=== PATIENT | male | born 1955 | race Caucasian/White ===

== ENCOUNTER 2016-06-10 14:44 | Inpatient (IN) ==
[2016-06-10] MEDS ORDERED: Nitroglycerin 0.4 MG TAB.SUBL SL ONE (15:09)
[2016-06-10] MEDS ORDERED: Aspirin 81 MG TAB.CHEW PO ONE (15:09)
--- NOTE | 2016-06-10 15:13 | Emergency Department Note ---
Disposition Clinical Impression: Edema of upper extremity Chest pain Qualifiers: Chest pain type: unspecified Qualified Code(s): R07.9 - Chest pain, unspecified Lower extremity edema Qualifiers: Laterality: bilateral Qualified Code(s): R60.0 - Localized edema Anemia Qualifiers: Anemia type: unspecified type Qualified Code(s): D64.9 - Anemia, unspecified Disposition: Admitted As Inpatient Condition: Good Referrals: Omid Rainey MD [Primary Care Provider] - Forms: ED Satisfaction Letter Time of Disposition: 16:38 Chest Pain HPI - General Chief Complaint: ED Chest Pain Stated Complaint: chest pain Time Seen by Provider: 06/10/16 15:00 Source: patient Limitations: no limitations Vital Signs Reviewed: Yes Nursing Notes Reviewed: Yes - History of Present Illness HPI Narrative: Patient is a 61-year-old male with past medical history 3 previous MIs (most recent in 2010), stenting 5, CHF, hypertension, diabetes, high cholesterol, previous smoking history. Currently follows with Arun pradhan with cardiology. He presents today due to left-sided chest pain that has been occurring for the past 3 days. He describes it as left-sided, dull constant ache. He states that the pain exacerbated this morning around 11:00. The pain radiated to the left side of the chest and he had associated left hand numbness and tingling. He took 3 "squirts" of nitroglycerin and said that this resolved with pain to about a 0. However, just prior to arrival, the pain began to return. He currently rates his pain a 4 out of 10. He is at the pain is exacerbated with exercise. However, is not associated with deep breaths, movement. He also admits to increased swelling in hands and lower extremities bilaterally for the last 2-3 days. He denies any other symptoms of nausea, vomiting, diarrhea, abdominal pain, fevers. Severity scale (1-10): 7 - Related Data Home Medications Medication Instructions Recorded Confirmed Aspirin Enteric Coated [Aspirin EC] 81 mg PO DAILY 05/03/15 06/10/16 Carvedilol [Coreg] 50 mg PO BID 05/03/15 06/10/16 Clopidogrel [Plavix] 75 mg PO DAILY 05/03/15 06/10/16 Diltiazem CD (24hr) [Cardizem CD] 120 mg PO DAILY 05/03/15 06/10/16 Ezetimibe [Zetia] 10 mg PO DAILY 05/03/15 06/10/16 Isosorbide MONOnitrate (24 HR) 120 mg PO DAILY 05/03/15 06/10/16 [Imdur] Lisinopril [Zestril] 5 mg PO BID 05/03/15 06/10/16 Metformin [Glucophage] 500 mg PO 0800 05/03/15 06/10/16 Nitroglycerin [Nitrostat] 0.4 mg SL Q5M PRN 05/03/15 08/29/15 Pregabalin [Lyrica] 150 mg PO BID 05/03/15 06/10/16 Ranolazine [Ranexa] 1,000 mg PO BID 05/03/15 06/10/16 Atorvastatin Calcium [Lipitor] 80 mg PO HS 06/10/16 06/10/16 Furosemide [Lasix] 40 mg PO BID 06/10/16 06/10/16 Previous Rx's Medication Instructions Recorded Sertraline [Zoloft] 100 mg PO DAILY tablet 08/30/15 Allergies Allergy/AdvReac Type Severity Reaction Status Date / Time Penicillins Allergy Hives Verified 08/29/15 18:44 hydrocodone AdvReac Itching Verified 08/29/15 18:44 Oxycodone AdvReac Itching Verified 08/29/15 18:44 All systems ED: reviewed and negative except as stated. Chest Pain PMH - Past Medical History Medical history: Reports: arthritis, coronary artery disease, diabetes, hyperlipidemia, hypertension, myocardial infarction, other Surgical history: Reports: angioplasty/stent ([facility] s/p PCI 2003, 2005, 2007. [facility] 2014 no intervention. ), prostatectomy Psychiatric history: Reports: no psych history - Social History Smoking Status: Former smoker Alcohol use: Reports: none Drug use: Reports: none Physical Exam - General Limitations: no limitations General appearance: alert, in no apparent distress - Head Head exam: atraumatic, normocephalic, normal inspection - Eye Eye exam: Present: normal appearance, PERRL, EOMI - ENT ENT exam: normal exam, normal oropharynx, mucous membranes moist - Neck Neck exam: Present: normal inspection, full ROM, trachea midline - Chest Chest inspection: Present: normal inspection, symmetric chest wall rise. Absent : tenderness, rash - Respiratory Respiratory exam: Present: normal lung sounds bilaterally. Absent: respiratory distress, wheezes, stridor, accessory muscle use, prolonged expiratory phase - Cardiovascular Cardiovascular exam: Present: regular rate, normal rhythm, normal heart sounds - Abdominal Exam Abdominal exam: Present: soft, Non-Tender. Absent: tenderness, distention, guarding, rebound, rigidity - Extremities Exam Extremities exam: Present: full ROM, pedal edema (Bilateral lower extremity nonpitting edema from calf down. Posterior tibial pulses are 2 out of 4 bilaterally.), other (Mild edema bilateral hands from the wrist down; no other erythema or signs of cellulitis.). Absent: tenderness - Back Exam Back exam: Present: normal inspection, full ROM. Absent: tenderness - Neurological Exam Neurological exam: Present: alert, oriented X3, CN II-XII intact. Absent: motor sensory deficit - Psychiatric Psychiatric exam: Present: normal affect, normal mood - Skin Skin exam: Present: warm, dry, intact, normal color Course Course Narrative: Vitals within normal limits on exam. Physical exam showed edema of the bilateral hands, bilateral lower extremities that was nonpitting. Radial and posterior tibial pulses +2 over 4. Otherwise, the rest of the physical exam was benign. Patient took nitroglycerin earlier today and it helped relieve his pain completely. However, it has returned he rated a 4 out of 10. Blood pressure is 125 over 70s. We will try additional doses of nitroglycerin. Also give 324 mg aspirin. We will perform cardiac workup including EKG, chest x-ray , troponin, basic blood work. Patient has multiple risk factors and will likely need to stay for a chest pain rule out. 06/10/16 troponin negative, patient slightly anemic, BMP concerning. chest x- ray negative for any acute cardiopulmonary process. ekg showed normal sinus rhythm with no acute st changes. Heart score 4. results were discussed with the patient, and due to chest pain going away with nitro and significant risk factors, I strongly encouraged the patient to stay for cardiac rule out. He was agreeable with coming in for observation. 16:[address] Poole for admission. Vital Signs Temperature 98.2 F 06/10/16 14:47 Pulse Rate 75 06/10/16 14:47 Respiratory Rate 20 06/10/16 14:47 Blood Pressure 119/76 06/10/16 14:47 O2 Sat by Pulse Oximetry 95 06/10/16 14:47 Temperature 98.2 F 06/10/16 14:47 Pulse Rate 68 06/10/16 16:10 Respiratory Rate 20 06/10/16 16:10 Blood Pressure 132/77 06/10/16 16:10 O2 Sat by Pulse Oximetry 95 06/10/16 16:10 Oxygen Delivery Oxygen Delivery Room Air Chest Pain - MDM Narrative Medical decision making narrative: Vitals within normal limits on exam. Physical exam showed edema of the bilateral hands, bilateral lower extremities that was nonpitting. Radial and posterior tibial pulses +2 over 4. Otherwise, the rest of the physical exam was benign. Patient took nitroglycerin earlier today and it helped relieve his pain completely. However, it has returned he rated a 4 out of 10. Blood pressure is 125 over 70s. We will try additional doses of nitroglycerin. Also give 324 mg aspirin. We will perform cardiac workup including EKG, chest x-ray , troponin, basic blood work. Patient has multiple risk factors and will likely need to stay for a chest pain rule out. 06/10/16 troponin negative, patient slightly anemic, BMP concerning. chest x- ray negative for any acute cardiopulmonary process. ekg showed normal sinus rhythm with no acute st changes. Heart score 4. results were discussed with the patient, and due to chest pain going away with nitro and significant risk factors, I strongly encouraged the patient to stay for cardiac rule out. He was agreeable with coming in for observation. 16:[address] Poole for admission. - Medical Records Medical records reviewed: Yes I reviewed the patient's medical records. - Lab Data Lab results reviewed: Yes I reviewed the patient's lab results. Result diagrams: 06/10/16 15:10 06/10/16 15:10 Lab Results 06/10/16 06/10/16 06/10/16 Range/Units 15:10 15:10 15:10 WBC 6.7 (4.3-11.1) K/mcL RBC 3.66 L (4.19-5.50) M/mcL Hgb 11.9 L (12.9-16.9) g/dL Hct 34.7 L (37.5-50.1) % MCV 94.8 (83.0-100.0) fL MCH 32.5 (28.0-33.3) pg MCHC 34.3 (31.6-35.5) g/dL RDW 12.9 (11.5-14.5) % Plt Count 130 L (140-400) K/mcL MPV 10.4 (9.4-12.4) fL Immature Gran % 1.2 (0-4) % Seg Neutrophils % 65.8 % Lymphocytes % 18.3 % Monocytes % 13.7 % Eosinophils % 0.5 % Basophils % 0.5 % Neutrophils # 4.4 (1.6-8.9) K/mcL Lymphocytes # 1.2 (0.6-4.6) K/mcL Monocytes # 0.9 (0.0-1.3) K/mcL Eosinophils # 0.0 (0.0-0.6) K/mcL Basophils # 0.0 (0.0-0.2) K/mcL PT 12.7 H (9.4-12.1) Seconds INR 1.2 APTT 29.4 (26.0-36.0) Seconds Sodium 133 L (136-145) mEq/L Potassium 3.7 (3.5-4.5) mEq/L Chloride 100 (98-109) mEq/L Carbon Dioxide 22 (19-29) mEq/L BUN 11 (8-26) mg/dL Creatinine 1.05 (0.72-1.25) mg/dL Est GFR ( Amer) > 60 (> 60) Est GFR (Non-Af Amer) > 60 (> 60) BUN/Creatinine Ratio 10 (6-26) Glucose 115 H (70-99) mg/dL Calculated Osmolality 276 L (280-300) Calcium 8.7 (8.6-10.8) mg/dL Troponin I (0-0.03) ng/mL 06/10/16 Range/Units 15:10 WBC (4.3-11.1) K/mcL RBC (4.19-5.50) M/mcL Hgb (12.9-16.9) g/dL Hct (37.5-50.1) % MCV (83.0-100.0) fL MCH (28.0-33.3) pg MCHC (31.6-35.5) g/dL RDW (11.5-14.5) % Plt Count (140-400) K/mcL MPV (9.4-12.4) fL Immature Gran % (0-4) % Seg Neutrophils % % Lymphocytes % % Monocytes % % Eosinophils % % Basophils % % Neutrophils # (1.6-8.9) K/mcL Lymphocytes # (0.6-4.6) K/mcL Monocytes # (0.0-1.3) K/mcL Eosinophils # (0.0-0.6) K/mcL Basophils # (0.0-0.2) K/mcL PT (9.4-12.1) Seconds INR APTT (26.0-36.0) Seconds Sodium (136-145) mEq/L Potassium (3.5-4.5) mEq/L Chloride (98-109) mEq/L Carbon Dioxide (19-29) mEq/L BUN (8-26) mg/dL Creatinine (0.72-1.25) mg/dL Est GFR ( Amer) (> 60) Est GFR (Non-Af Amer) (> 60) BUN/Creatinine Ratio (6-26) Glucose (70-99) mg/dL Calculated Osmolality (280-300) Calcium (8.6-10.8) mg/dL Troponin I 0.00 (0-0.03) ng/mL - Radiology Data Radiology results reviewed: Yes I reviewed the patient's radiology results. Chest X-Ray 06/10/16 15:09 IMPRESSION: No acute cardiopulmonary disease D/ / Honorio Fernandez MD / Honorio Fernandez MD Interpreting Provider: Honorio Fernandez MD - EKG Data EKG attestation: Yes I reviewed and interpreted this EKG. EKG results narrative: 06/10/2016 14:53. Normal sinus rhythm. Normal axis. Rate 72. QTC 386. T- wave inversion in aVR, V1 that is unchanged from previous EKG. Otherwise, no acute ST elevation or depression. Comparison to previous EKG on 08/30/2015 Heart Score - Score History: Moderately Suspicious EKG: Normal Age: 45-65 Risk Factors: Equal/Greater than 3 risk factor or history of atherosclerotic disease Troponin: Less than normal limit HEART Score Total: 4 S.B.A.R. - S.B.A.R. Situation: Demographics, MOA Background: Presenting Complaint, Relevant PMH, Meds, & Allergies Assessment: Vital Signs, Course and respsone to treatment, Exam Concerns, Patient/Family Expectation, Pertinant Lab Results, Outstanding Labs Recommendation: Barrier(s) to disposition, Recommendation based on pending studies, treatments, or consults Vicky Report Given to: Dr. Virgilio Perry Repor Time: 16:38 Attestation Statement - Attestation Attestation: I examined this patient and my medical decision-making was reviewed with the CONTENT STRATEGIST/PA/Advanced Practice Nurse/Resident Physician. I agree with the documented findings, disposition and treatment plan as described except to the extent set forth below. The face time provided in conjunction with Patient presents complaining of chest "discomfort." He also feels as if he is diffusely swollen. He appears in no acute distress on exam. EKG reviewed by me. Plan of care and management discussed by me with the resident physician
[2016-06-10 15:20] LABS: Basophils % 0.5 %; Eosinophils % 0.5 %; Hematocrit 34.7 % (37.5-50.1); Hemoglobin 11.9 g/dL (12.9-16.9); Immature Granulocytes % 1.2 % (0-4); Lymphocytes # 1.2 K/mcL (0.6-4.6); Lymphocytes % 18.3 %; Mean Corpuscular HGB Conc 34.3 g/dL (31.6-35.5); Mean Corpuscular Hemoglobin 32.5 pg (28.0-33.3); Mean Corpuscular Volume 94.8 fL (83.0-100.0); Mean Platelet Volume 10.4 fL (9.4-12.4); Monocytes # 0.9 K/mcL (0.0-1.3); Monocytes % 13.7 %; Neutrophils # 4.4 K/mcL (1.6-8.9); Platelet Count 130 K/mcL (140-400); Red Blood Count 3.66 M/mcL (4.19-5.50); Red Cell Distribution Width 12.9 % (11.5-14.5); Segmented Neutrophils % 65.8 %
[2016-06-10 15:25] LABS: INR 1.2; Prothrombin Time 12.7 Seconds (9.4-12.1)
[2016-06-10 15:28] LABS: Activated Partial Thrombo Time 29.4 Seconds (26.0-36.0)
[2016-06-10 15:38] LABS: BUN/Creatinine Ratio 10 (6-26); Blood Urea Nitrogen 11 mg/dL (8-26); Calcium 8.7 mg/dL (8.6-10.8); Carbon Dioxide 22 mEq/L (19-29); Chloride 100 mEq/L (98-109); Glucose 115 mg/dL (70-99); Osmolality,Calculated 276 (280-300); Potassium 3.7 mEq/L (3.5-4.5); Sodium 133 mEq/L (136-145); eGFR For African Americans > 60 (> 60); eGFR For Non-African Americans > 60 (> 60)
[2016-06-10] MEDS ORDERED: Ketorolac 30 MG/ML VIAL IVP ONE (16:43)
[2016-06-10] MEDS ORDERED: Ibuprofen 400 MG TABLET PO PRN (18:19)
[2016-06-10] MEDS ORDERED: traMADol 50 MG TABLET PO PRN (18:19)
[2016-06-10] MEDS ORDERED: Furosemide 60 MG in 0.9 % Sodium Chloride 50 ML IVPB ONE (21:04)
[2016-06-10] MEDS ORDERED: Naloxone 0.4 MG/ML INJ IVP PRN (21:06)
[2016-06-10] MEDS ORDERED: Ondansetron 4 MG/2 ML VIAL IVP PRN (21:06)
[2016-06-10] MEDS ORDERED: Dextrose Gel 15 GM PO PRN ×2 (21:10)
[2016-06-10] MEDS ORDERED: D5% in Water 1,000 ML IV PRN (21:10)
[2016-06-10] MEDS ORDERED: *HR* Dextrose 50 % in Water (Syg) 50 ML SYRINGE IVP PRN (21:10)
[2016-06-10] MEDS ORDERED: Furosemide 40 MG/4 ML VIAL IVP ONE (21:21)
[2016-06-10] MEDS: Nitroglycerin 0.4 MG TAB.SUBL SL PRN (21:59)
[2016-06-10] MEDS ORDERED: Temazepam 15 MG CAPSULE PO ONE (22:21)
[2016-06-10] MEDS: traMADol 50 MG TABLET PO PRN (22:24)
--- NOTE | 2016-06-10 22:43 | Internal Med History&Physical ---
Date of Encounter: 06/10/16 Time of Encounter: 20:20 Internal Medicine - H&P: HPI Chief complaint: chest pain, fluid retention Admitted From: Emergency Dept Plans for Post Hospital Care: Home History of present illness: Mr. uRiz is a 61 year old male with medical history significant for 3 previous MIs (most recent in 2010), multiple PCI with five oronary stents, CHF, hypertension, diabetes, high cholesterol, previous smoking history, under care of [facility] of cardiology, he presents with intermittent left -sided chest pain, which has not really changed in pattern from prior, He describes it as left- sided, dull constant ache, with a minor exacerbation this morning, radiating across left chest and down the side. Chest pain was relieved after 3 doses of SL nitroglycerin.However his real concern is fluid retention evident in swelling of upper extremities. He had difficulty taking off his marital ring yesterday. Chest pain is not reproduced by deep breathing movements , movements of the arms or torso. He re[orts chronic SOB, BARNETT and exertional chest pain, and chronic leg swelling, no prior history of swelling in the upper extremities. No other associated symptoms of nausea, vomiting, diarrhea, abdominal pain, fevers. He is DNR/DNI as per discussion, he does not have a living will document, though he would have wished his , Rajni Ruiz ), but is is currently incapacitated with cancer, only returned home from SNF after nearly 1 month institutionalization, he nominates hios daughter in-law, Niya Arshad ([phone]) no act as NOK/POA. Medical history: Reports: arthritis, coronary artery disease, diabetes, hyperlipidemia, hypertension, myocardial infarction, other Surgical history: Reports: angioplasty/stent ([facility] s/p PCI 2003, 2005, 2008. [facility] 2014 no intervention. ), prostatectomy for cancer of prostate Psychiatric history: Reports: no psych history Smoking Status: Former smoker, quit in 2009 Alcohol use: Reports: none Drug use: Reports: none Family history: : cancer, CAD, DM2, HTN, HLD. ROS: A 10-point ROS was performed, positives and relevant negatives are detailed , system-symptoms not mentioned are assumed negative unless otherwise stated. Vital Signs Temperature 98.2 F 06/10/16 14:47 Pulse Rate 75 06/10/16 14:47 Respiratory Rate 20 06/10/16 14:47 Blood Pressure 119/76 06/10/16 14:47 O2 Sat by Pulse Oximetry 95 06/10/16 14:47 Temperature 98.2 F 06/10/16 14:47 Pulse Rate 68 06/10/16 16:10 Respiratory Rate 20 06/10/16 16:10 Blood Pressure 132/77 06/10/16 16:10 O2 Sat by Pulse Oximetry 95 06/10/16 16:10 O/E: Obese++, not in distress HEENT: Not pale, anicteric, afebrile, acyanotic, no JVD Chest: CTAB, chest pain is not reproducible by palpation of movements of torso, or arms Heart/CVS: RRR, HS1/2, no murmur Abdomen: distended (chronic, related to obesity, and aging), soft, non-tender, no masses. CHIMNEY MECHANIC: AAO x 3, no gross focal neurological decifits, PERRL/EOMI Skin: No active skin lesion. Extremities: 1+pedal edema, normal pedal pulses, no calf tenderness. Edema of upper extremities, most obvious in the fingers. Lab Results 06/10/16 06/10/16 06/10/16 Range/Units 15:10 15:10 15:10 WBC 6.7 (4.3-11.1) K/mcL RBC 3.66 L (4.19-5.50) M/mcL Hgb 11.9 L (12.9-16.9) g/dL Hct 34.7 L (37.5-50.1) % MCV 94.8 (83.0-100.0) fL MCH 32.5 (28.0-33.3) pg MCHC 34.3 (31.6-35.5) g/dL RDW 12.9 (11.5-14.5) % Plt Count 130 L (140-400) K/mcL MPV 10.4 (9.4-12.4) fL Immature Gran % 1.2 (0-4) % Seg Neutrophils % 65.8 % Lymphocytes % 18.3 % Monocytes % 13.7 % Eosinophils % 0.5 % Basophils % 0.5 % Neutrophils # 4.4 (1.6-8.9) K/mcL Lymphocytes # 1.2 (0.6-4.6) K/mcL Monocytes # 0.9 (0.0-1.3) K/mcL Eosinophils # 0.0 (0.0-0.6) K/mcL Basophils # 0.0 (0.0-0.2) K/mcL PT 12.7 H (9.4-12.1) Seconds INR 1.2 APTT 29.4 (26.0-36.0) Seconds Sodium 133 L (136-145) mEq/L Potassium 3.7 (3.5-4.5) mEq/L Chloride 100 (98-109) mEq/L Carbon Dioxide 22 (19-29) mEq/L BUN 11 (8-26) mg/dL Creatinine 1.05 (0.72-1.25) mg/dL Est GFR ( Amer) > 60 (> 60) Est GFR (Non-Af Amer) > 60 (> 60) BUN/Creatinine Ratio 10 (6-26) Glucose 115 H (70-99) mg/dL Calculated Osmolality 276 L (280-300) Calcium 8.7 (8.6-10.8) mg/dL Troponin I (0-0.03) ng/mL 06/10/16 Range/Units 15:10 WBC (4.3-11.1) K/mcL RBC (4.19-5.50) M/mcL Hgb (12.9-16.9) g/dL Hct (37.5-50.1) % MCV (83.0-100.0) fL MCH (28.0-33.3) pg MCHC (31.6-35.5) g/dL RDW (11.5-14.5) % Plt Count (140-400) K/mcL MPV (9.4-12.4) fL Immature Gran % (0-4) % Seg Neutrophils % % Lymphocytes % % Monocytes % % Eosinophils % % Basophils % % Neutrophils # (1.6-8.9) K/mcL Lymphocytes # (0.6-4.6) K/mcL Monocytes # (0.0-1.3) K/mcL Eosinophils # (0.0-0.6) K/mcL Basophils # (0.0-0.2) K/mcL PT (9.4-12.1) Seconds INR APTT (26.0-36.0) Seconds Sodium (136-145) mEq/L Potassium (3.5-4.5) mEq/L Chloride (98-109) mEq/L Carbon Dioxide (19-29) mEq/L BUN (8-26) mg/dL Creatinine (0.72-1.25) mg/dL Est GFR ( Amer) (> 60) Est GFR (Non-Af Amer) (> 60) BUN/Creatinine Ratio (6-26) Glucose (70-99) mg/dL Calculated Osmolality (280-300) Calcium (8.6-10.8) mg/dL Troponin I 0.00 (0-0.03) ng/mL CXR: No acute cardiopulmonary disease EKG: NSR, normal axis, unchanged T wave inversion in aVR (08/2015), no definitive evidence of acute infarction. IMP Atypical chest pain in a patient with history of CAD s/p PCI. Hx of CAD s/p PCI (2003, 2005, 2007) with preserved LV function per most recent echocardiogram. Most recent LHC 06/08/2014 demonstrated chronically occluded 100% mid LCx lesion and Om1 stenosis (very small). Mid to distal RCA stenosis with subsequent FFR to mid RCA 0.88. Previous stents patent. Stress test of 08/2015, incomplete. focal small focal of reversible defect reported, he declined further work-up at that time. He has been following cardiology in the out-patient setting subsequently, LHC had been discussed. 2D ECHO of 2014, demonstrated preserved systolic function with LVEF of 60-65%, with essentially normal findings Fluid retention in a patient on chronic Furosemide, though he reports compliance , I suspect recent non-compliance especially with recent hospitalization of his , I cannot exclude mild decompensation of diastolic heart failure. Probable psychosomatic contribution to his presentation Chronic morbidities: HTN HLD CAD s/p PCI with stents DM2 Chronic fluid retention Diastolic heart failure, no acute decompensation. Obesity COPD, stable PAD History of prostate cancer s/p prostatectomy PLAN Admit to telemtry CYCLE TROPONINS, SERIAL EKG, 2D ECHO. hE is already on maximum therapy. Consult cardiology, may benefit from C IVP Furosemide 60mg X 1, then increase po dose to 60mg po BID Continue medications of chronic morbidities He demands pain medication, but has documented allergies to mrphine, hydrocodone and oxycodone, use Tramadol, Temazepam 30mg PO hs x 1 for sleep He seems to tell me later that his has terminal cancer and has been in the NH since the [place] of the New Year, she had just returned home yesterday, he reiterates he does not want to continue living like this, the opts for DNR/DNI code status, despites stability of his health condition. This discussion leads me to belief that the burden of his disease may be impacting on him, and his presentation may be partly related to events of the past week. Continue other medications of chronic morbidities Consult palliative care for discussion of living will document. I discussed my assessment with the patient, he verbalized understanding and is agreeable to admission. He is admitted for chest pain work-up in the setting of overwhelming cardiovascular risks factors. Past Med Surg Social Fam HX - Past Medical History Medical history: arthritis, CHF, coronary artery disease, diabetes, hyperlipidemia, hypertension, myocardial infarction, other Psychiatric history: no psych history - Past Surgical History Surgical History: angioplasty/stent, prostatectomy - Social History Smoking Status: Former smoker Smokeless Tobacco Status: No Alcohol use: none Drug use: none - Family History Father Adopted: No Family Member Ethnicity: Non- Living Status: Still Living Hx Family Cardiac Disorders: Yes Hx Family Respiratory Disorders: Yes (copd / asbestosis) Hx Family Cancer: No Hx Family GI Disorders: No Hx Family Endocrine Disorder: Yes Hx Family Neuromuscular Disorders: No Hx Family Neurologic Disorders: No Hx Family HEENT Disorders: No Hx Family Autoimmune Disorders: No Mother Living Status: Internal Medicine - H&P: Meds Aspirin Enteric Coated [Aspirin EC] 81 mg PO DAILY 05/03/15 [History] Carvedilol [Coreg] 50 mg PO BID 05/03/15 [History] Clopidogrel [Plavix] 75 mg PO DAILY 05/03/15 [History] Diltiazem CD (24hr) [Cardizem CD] 120 mg PO DAILY 05/03/15 [History] Ezetimibe [Zetia] 10 mg PO DAILY 05/03/15 [History] Isosorbide MONOnitrate (24 HR) [Imdur] 120 mg PO DAILY 05/03/15 [History] Lisinopril [Zestril] 5 mg PO BID 05/03/15 [History] Metformin [Glucophage] 500 mg PO 0800 05/03/15 [History] Nitroglycerin [Nitrostat] 0.4 mg SL Q5M PRN 05/03/15 [History] Pregabalin [Lyrica] 150 mg PO BID 05/03/15 [History] Ranolazine [Ranexa] 1,000 mg PO BID 05/03/15 [History] Sertraline [Zoloft] 100 mg PO DAILY tablet 08/30/15 [Rx] Atorvastatin Calcium [Lipitor] 80 mg PO HS 06/10/16 [History] Furosemide [Lasix] 40 mg PO BID 06/10/16 [History] Allergies Penicillins Allergy (Verified 08/29/15 18:44) Hives hydrocodone Adverse Reaction (Verified 08/29/15 18:44) Itching Oxycodone Adverse Reaction (Verified 08/29/15 18:44) Itching All Systems PM: A 10-system review of systems was performed and is negative for pertinent findings except as documented above in the HPI. - Constitutional Vitals: Temp Pulse Resp BP Pulse Ox 97.9 F 74 16 127/74 95 06/10/16 20:02 06/10/16 20:02 06/10/16 20:02 06/10/16 20:02 06/10/16 20:02 Internal Med - H&P Results - Labs CBC & Chem 7: 06/10/16 15:10 06/10/16 15:10
[2016-06-11] MEDS: Nitroglycerin 0.4 MG TAB.SUBL SL PRN ×2 (02:35→02:42)
[2016-06-11] MEDS: *HR* Enoxaparin 40 MG/0.4 ML SYRINGE SQ SCH (05:38)
[2016-06-11] MEDS: traMADol 50 MG TABLET PO PRN ×3 (05:54→23:25)
[2016-06-11 06:05] LABS: Hemoglobin A1C 6.1 %
[2016-06-11 06:14] LABS: Chol/HDL Ratio 4.3 (0-4.9)
[2016-06-11] MEDS ORDERED: Furosemide 40 MG TABLET PO SCH (08:00)
[2016-06-11] MEDS: Insulin LISPRO 300 UNITS/3 ML VIAL SQ SCH ×4 (08:55→22:51)
[2016-06-11] MEDS: Pregabalin 75 MG CAPSULE PO SCH ×2 (08:57→20:50)
[2016-06-11] MEDS: Aspirin Enteric Coated 81 MG Tablet PO SCH (08:57)
[2016-06-11] MEDS: Ranolazine 500 MG TAB.ER.12H PO SCH ×2 (08:58→20:50)
[2016-06-11] MEDS ORDERED: Isosorbide MONOnitrate (24 HR) 60 MG TAB.ER.24H PO SCH ×2 (09:00→10:15)
[2016-06-11] MEDS ORDERED: Diltiazem CD (24hr) 120 MG CAPSULE PO SCH (09:00)
--- NOTE | 2016-06-11 09:18 | Electrocardiograph Report ---
[facility] Test Date: 2016-06-10 Pat Name: Aris Ruiz Department: 103 Room: 3B55 Gender: M Pipe Smoking [employer] Offbearer: : 1955 Requested By: Marck Richard Order Number: [id number] Reading MD: Edgar Chang MD Measurements Intervals [place] Rate: 72 P: 48 SC: 209 QRS: 3 QRSD: 86 T: 29 QT: 362 QTc: 386 Interpretive Statements SINUS RHYTHM LOW QRS VOLTAGE IN PRECORDIAL LEADS Electronically Signed On 06-11-16 09:17:42 EST by Edgar Chang MD
[2016-06-11] MEDS ORDERED: *HR* Morphine 2 MG/ML SYRINGE IVP PRN (09:46)
--- NOTE | 2016-06-11 10:16 | Cardiology Consult Note ---
Date of Encounter: 06/11/16 Time of Encounter: 10:15 Assessment and Plan (1) Chest pain Current Visit: Yes Status: Acute Per Cardiology: Patient with chronic chest pain due to traumatic injury and hemothorax in the past. However, patient also has known CAD. Patient reports increasing chest pain symptoms from baseline and increased utilization of nitroglycerin pills with minimal relief. Troponins negative 3. Patient requesting heart catheterization. Echo is pending. Patient discussed and reviewed with Dr. Mendez and Dr. Chang, plan for left heart catheterization today. Further recommendations pending echo and catheterization results. Of note, about 30 minutes after encounter rapid response was called due to hypotension, confusion, diaphoresis. Blood glucose 111. Systolic blood pressure noted in the 90's. Repeat ECG showed sinus rhythm in the 60s. No events noted on telemetry. Subsequent troponin was negative at 0.01. Further management per primary service. Again further recs pending catheterization later today. Also, he is DNR Comfort Care arrest DNI. Qualifiers: Chest pain type: unspecified Qualified Code(s): R07.9 - Chest pain, unspecified (2) CAD (coronary artery disease) Current Visit: No Status: Chronic Per Cardiology: Known history of CAD with stenting 3 in 1999, stenting 1 in 2005, stenting 2 2007 and stenting 1 in 2010. Last heart catheterization May 2014 showed patent stents, chronically occluded 100% mid circumflex, OM1 90% (very small vessel), and mid distal RCA 50-60% stenosis with FFR at that time 0.88. On aspirin, Plavix, statin, beta alejandra, LAWRENCE inhibitor, Ranexa, and long-acting nitrate. Qualifiers: Coronary Disease-Associated Artery/Lesion type: [place] artery [place] vs. transplanted heart: [place] heart Associated angina: with unspecified angina Qualified Code(s): I25.119 - Atherosclerotic heart disease of [place] coronary artery with unspecified angina pectoris (3) Edema of upper extremity Current Visit: Yes Status: Acute Per Cardiology: Patient complaint of bilateral upper and lower extremity edema. Received Lasix during hospital stay and -1.5 L. Current weight 281 pounds. Of note, he weighed 281 pounds during my visit with him in April 2016. Previous EF 60% on echo in April 2015. Discussion w patient/family: The assessment and plan as outlined above was discussed with the patient and/or family members who expressed understanding and agreement. All questions were answered. Thank you for involving us in the care of your patient. Please call with any questions. History of Present Illness Consult date: 06/11/16 Requesting physician: Efrem Mahmood Consult reason: CP Chief complaint: CP, CAO History of present illness: Mr. Ruiz is a 61 year old male with a relevant past medical history of CAD, chronic musculoskeletal chest pain from trauma, history of hemothorax, hypertension, and diabetes mellitus type 2. I last saw patient in clinic in April 2016, at that appointment we discussed potential stress test versus catheterization, however patient and preferred to continue to monitor and observe. Patient reports over the past few weeks increased stress in his life with his hospitalized at [facility] with lung cancer. She is now at home and hospice care. Patient reports over the past week increase in his midsternal to left-sided chest pressure. Is also increased utilization of his nitroglycerin with minimal relief. He reports concerns of swelling to his bilateral upper and lower extremities. He reports up about 10-15 pounds. Also indicates he presented to [facility] ER this past Thursday for concerns of swelling and shortness of breath, however had to wait over 6 hours and he eventually just left. Patient denies any other concerns or complaints at this time. Patient reports he would like to proceed with left heart catheterization. Past Med Surg Social Fam HX - Past Medical History Attestation: Yes The following information was validated with the patient. Source: patient, old records reviewed, obtained from family Medical history: arthritis, CHF, coronary artery disease, diabetes, hyperlipidemia, hypertension, myocardial infarction, other Psychiatric history: no psych history - Past Surgical History Surgical History: angioplasty/stent, prostatectomy - Social History Smoking Status: Former smoker Smokeless Tobacco Status: No Alcohol use: none Drug use: none - Family History Father Adopted: No Family Member Ethnicity: Non- Living Status: Still Living Hx Family Cardiac Disorders: Yes Hx Family Respiratory Disorders: Yes (copd / asbestosis) Hx Family Cancer: No Hx Family GI Disorders: No Hx Family Endocrine Disorder: Yes Hx Family Neuromuscular Disorders: No Hx Family Neurologic Disorders: No Hx Family HEENT Disorders: No Hx Family Autoimmune Disorders: No Mother Living Status: Medications and Allergies Aspirin Enteric Coated [Aspirin EC] 81 mg PO DAILY 05/03/15 [History] Carvedilol [Coreg] 50 mg PO BID 05/03/15 [History] Clopidogrel [Plavix] 75 mg PO DAILY 05/03/15 [History] Diltiazem CD (24hr) [Cardizem CD] 120 mg PO DAILY 05/03/15 [History] Ezetimibe [Zetia] 10 mg PO DAILY 05/03/15 [History] Isosorbide MONOnitrate (24 HR) [Imdur] 120 mg PO DAILY 05/03/15 [History] Lisinopril [Zestril] 5 mg PO BID 05/03/15 [History] Metformin [Glucophage] 500 mg PO 0800 05/03/15 [History] Nitroglycerin [Nitrostat] 0.4 mg SL Q5M PRN 05/03/15 [History] Pregabalin [Lyrica] 150 mg PO BID 05/03/15 [History] Ranolazine [Ranexa] 1,000 mg PO BID 05/03/15 [History] Sertraline [Zoloft] 100 mg PO DAILY tablet 08/30/15 [Rx] Atorvastatin Calcium [Lipitor] 80 mg PO HS 06/10/16 [History] Furosemide [Lasix] 40 mg PO BID 06/10/16 [History] Allergies Penicillins Allergy (Verified 08/29/15 18:44) Hives hydrocodone Adverse Reaction (Verified 08/29/15 18:44) Itching Oxycodone Adverse Reaction (Verified 08/29/15 18:44) Itching All Systems Review: A 10-system review of systems was performed and is negative for pertinent findings except as documented above in the HPI. - Constitutional Constitutional: fatigue - Cardiovascular Cardiovascular: as per HPI, chest pain at rest, dyspnea on exertion - Respiratory Respiratory: dyspnea Physical Examination Vital Signs, Last 4 Hours Temp Pulse Resp BP Pulse Ox 06/11/16 06:57 98.0 F 87 16 124/68 92 L General: Conversant, No Apparent Distress HEENT: Atraumatic, Normocephaly, Mucus Membranes Moist Cardiac: Reg Rate and Rhythm, Normal S1 and S2, No Murmur Lungs: Normal Breath Sounds, No Wheeze, Rales, Rhonchi Neuro: Alert and responsive, No focal deficits noted Abdomen: Soft, Non-Tender, Other (Obese, no ascites appreciated) Skin: No rashes noted on visualized skin Musculoskeletal: No Chest Wall Tenderness Extremities: No Edema, Normal Pulses Results 06/11/16 12:04 06/11/16 12:04 Lab Results Laboratory Tests 06/10/16 06/10/16 06/11/16 15:10 15:10 04:56 INR 1.2 Hemoglobin A1c 6.1 H Troponin I 0.00 LDL Cholesterol, Calc 06/11/16 06/11/16 04:56 04:56 INR Hemoglobin A1c Troponin I 0.00 LDL Cholesterol, Calc 56 ITS Impressions Chest X-Ray 06/10/16 15:09 IMPRESSION: No acute cardiopulmonary disease D/ / Honorio Fernandez MD / Honorio Fernandez MD Interpreting Provider: Honorio Fernandez MD Laboratory Tests 06/11/16 12:04 Troponin I 0.01 Intake & Output 06/08/16 06/09/16 06/10/16 06/11/16 23:59 23:59 23:59 23:59 Output Total 600 / 600 975 / 975 Balance -600 / -600 -975 / -975 Weight 132.903 kg 128.185 kg Active Medications Aspirin (Aspirin Ec) 81 mg PO DAILY [facility] Stop: 12/11/16 09:01 Last Admin: 06/11/16 08:57 Dose: 81 mg Atorvastatin Calcium (Lipitor) 80 mg PO HS [facility] Stop: 12/11/16 21:01 Carvedilol (Coreg) 50 mg PO BID EBER PRN Reason: Protocol Stop: 12/11/16 09:01 Last Admin: 06/11/16 08:57 Dose: 50 mg Clopidogrel Bisulfate (Plavix) 75 mg PO DAILY [facility] Stop: 12/11/16 09:01 Last Admin: 06/11/16 08:58 Dose: 75 mg Dextrose/Water (Dextrose 50% (Syg)) 25 ml IVP AD PRN PRN Reason: Hypoglycemia Stop: 12/10/16 21:11 Diltiazem HCl (Cardizem Cd) 120 mg PO DAILY [facility] Stop: 12/11/16 09:01 Last Admin: 06/11/16 08:57 Dose: 120 mg Enoxaparin Sodium (Lovenox) 40 mg SQ 0600 [facility] PRN Reason: Protocol Stop: 12/11/16 06:01 Last Admin: 06/11/16 05:38 Dose: Not Given Furosemide (Lasix) 60 mg PO BIDDIURETIC EBER Stop: 12/11/16 08:01 Last Admin: 06/11/16 08:58 Dose: 60 mg Glucagon (Glucagen) 1 mg IM ONCE PRN PRN Reason: Hypoglycemia Stop: 12/10/16 21:11 Glucose (Gluctose) 15 gm PO ONCE PRN PRN Reason: Hypoglycemia Stop: 12/10/16 21:11 Glucose (Gluctose) 30 gm PO ONCE PRN PRN Reason: Hypoglycemia Stop: 12/10/16 21:11 Dextrose (Dextrose 5%) 1,000 mls @ 100 mls/hr IV CONT PRN PRN Reason: HYPOGLYCEMIA Stop: 12/10/16 21:11 Sodium Chloride (0.9 % Sodium Chloride) 250 mls @ 0 mls/hr IV CONT EBER PRN Reason: Wide Open Stop: 12/11/16 12:16 Last Admin: 06/11/16 12:52 Dose: 999 mls/hr Sodium Chloride (0.9 % Sodium Chloride) 1,000 mls @ 100 mls/hr IVC .Q10H EBER Stop: 12/11/16 12:46 Last Admin: 06/11/16 12:52 Dose: 100 mls/hr Insulin Human Lispro (Humalog) 0 units SQ HS EBER PRN Reason: Protocol Stop: 12/11/16 21:01 Insulin Human Lispro (Humalog) 0 units SQ TIDAC EBER PRN Reason: Protocol Stop: 12/11/16 07:31 Last Admin: 06/11/16 11:31 Dose: Not Given Isosorbide Mononitrate (Imdur) 120 mg PO DAILY EBER Stop: 12/11/16 10:16 Last Admin: 06/11/16 10:43 Dose: 120 mg Lisinopril (Zestril) 5 mg PO BID EBER PRN Reason: Protocol Stop: 12/11/16 09:01 Last Admin: 06/11/16 08:58 Dose: 5 mg Morphine Sulfate (Morphine Sulfate) 2 mg IVP Q4HR PRN PRN Reason: Moderate Pain Stop: 12/11/16 09:47 Last Admin: 06/11/16 10:01 Dose: 2 mg Naloxone HCl (Narcan) 0.4 mg IVP Q2MIN PRN PRN Reason: Opioid Reversal Stop: 12/10/16 21:07 Nitroglycerin (Nitroglycerin) 0.4 mg SL Q5MIN PRN PRN Reason: Chest Pain Stop: 12/10/16 21:10 Last Admin: 06/11/16 02:42 Dose: 0.4 mg Ondansetron HCl (Zofran) 4 mg IVP Q8HR PRN PRN Reason: Nausea And Vomiting Stop: 12/10/16 21:07 Pharmacy Profile Note (Patient Taking Own Medication) 1 each PO DAILY EBER Stop: 12/11/16 09:01 Last Admin: 06/11/16 08:55 Dose: Not Given Pregabalin (Lyrica) 150 mg PO BID EBER Stop: 12/11/16 09:01 Last Admin: 06/11/16 08:57 Dose: 150 mg Ranolazine (Ranexa) 1,000 mg PO BID EBER Stop: 12/11/16 09:01 Last Admin: 06/11/16 08:58 Dose: 1,000 mg Sertraline HCl (Zoloft) 100 mg PO DAILY EBER Stop: 12/11/16 09:01 Last Admin: 06/11/16 08:58 Dose: 100 mg Tramadol HCl (Ultram) 50 mg PO Q6H PRN PRN Reason: Pain Stop: 12/10/16 18:20 Last Admin: 06/11/16 05:54 Dose: 50 mg - Imaging and Cardiology Chest Xray: report reviewed Echo: pending Cardiac cath: pending - EKG Interpretation EKG results cardiology: personally reviewed (Sinus rhythm in the 70s), normal ECG, sinus rhythm, no diagnostic ischemia, other (24 hour telemetry reviewed with average heart rate) Consult Discharge Plan - Plan Referrals: Omid Rainey MD [Primary Care Provider] -
[2016-06-11 12:11] LABS: Basophils % 0.4 %; Eosinophils # 0.1 K/mcL (0.0-0.6); Eosinophils % 0.9 %; Hematocrit 36.8 % (37.5-50.1); Hemoglobin 12.5 g/dL (12.9-16.9); Immature Granulocytes % 0.8 % (0-4); Immature Platelets 5.5 % (1.1-6.1); Lymphocytes # 1.2 K/mcL (0.6-4.6); Lymphocytes % 14.7 %; Mean Corpuscular Hemoglobin 32.3 pg (28.0-33.3); Mean Corpuscular Volume 95.1 fL (83.0-100.0); Mean Platelet Volume 10.8 fL (9.4-12.4); Monocytes # 0.8 K/mcL (0.0-1.3); Monocytes % 10.7 %; Neutrophils # 5.7 K/mcL (1.6-8.9); Platelet Count 143 K/mcL (140-400); Red Blood Count 3.87 M/mcL (4.19-5.50); Segmented Neutrophils % 72.5 %
[2016-06-11] MEDS ORDERED: 0.9 % Sodium Chloride 250 ML IV SCH (12:15)
[2016-06-11 12:25] LABS: Alanine Aminotransferase 20 Units/L (0-55); Albumin 3.4 g/dL (3.5-5.0); Alkaline Phosphatase 80 Units/L (38-126); Aspartate Amino Transferase 17 Units/L (5-34); BUN/Creatinine Ratio 9 (6-26); Bilirubin,Total 0.5 mg/dL (0.2-1.2); Blood Urea Nitrogen 12 mg/dL (8-26); Carbon Dioxide 23 mEq/L (19-29); Chloride 102 mEq/L (98-109); Globulin 3.5 g/dL (2.4-3.5); Glucose 129 mg/dL (70-99); Osmolality,Calculated 283 (280-300); Sodium 136 mEq/L (136-145); Total Protein 6.9 g/dL (6.0-8.3); eGFR For African Americans > 60 (> 60); eGFR For Non-African Americans 56 (> 60)
[2016-06-11] MEDS: 0.9 % Sodium Chloride 1,000 ML IVC SCH ×2 (12:52→17:02)
--- NOTE | 2016-06-11 13:59 | Pre-Sedation Evaluation ---
Pre-sedation evaluation - Pre-sedation checklist Date of procedure: 06/11/16 Procedure: LEFT HEART CATH Recent Vitals: Last Vital Signs Temp 97.9 F 06/11/16 12:08 Pulse 85 06/11/16 13:30 Resp 16 06/11/16 12:39 BP 95/54 06/11/16 13:30 Pulse Ox 95 06/11/16 13:15 H&P (including ROS) documented in medical record: Yes Previous reaction to sedatives/anesthetics: No Dietary Status: NPO after Midnight Dentition: dentures removed ASA Classification *see protocol: CLASS II-Mild systemic disease Plan of Care: Pt appropriate candidate for procedure/moderate/conscious sedation , Risks/benefits of procedure/sedation discussed w/ patient/family
[2016-06-11] MEDS ORDERED: Verapamil 5 MG/2 ML VIAL ONE (14:01)
[2016-06-11] MEDS ORDERED: 0.9 % Sodium Chloride 1,000 ML ONE (14:02)
[2016-06-11] MEDS ORDERED: Nitroglycerin 1,000 MCG/10 ML VIAL IV ONE (14:02)
[2016-06-11] MEDS ORDERED: Heparin 1,000 UNITS/500 mL NS 500 ML ONE (14:02)
[2016-06-11] MEDS ORDERED: *HR* Heparin 10,000 UNIT/10 ML VIAL ONE (14:02)
[2016-06-11] MEDS ORDERED: *HR* Midazolam HCl 5 MG/5 ML VIAL IVP ONE (14:39)
[2016-06-11] MEDS ORDERED: *HR* FentaNYL (PF) 100 MCG/2 ML VIAL ONE (14:39)
--- NOTE | 2016-06-11 15:24 | Invasive Diagnostic Lab Proc ---
Name: Aris Ruiz Date of Study: 06/11/2016 Date: 1955 Ht: 70.1in Medical Record#: [id number] Age: 61 Wt: 282.19lb Gender: Male BSA: 2.42 Order #: [id number] BMI: 40.4 Physicians Procedure Physician: Edgar Chang MD, FACC Referring MD: [place] Referring MD: Staff Name Position Time In Sites, Viviana RT (R) Scrub 02:38 PM Natalya Sorto RN Monitor 02:38 PM Silvia Malik RN Auto Technician 02:38 PM Indications Indication Unstable Angina Procedures Performed Procedure L HRT ARTERY/VENTRICLE ANGIO Pre-Procedure Checklist Informed consent is complete signed and on chart. H\\T\\P is on chart. ID band is on and ID verified with patient. Patient NPO for procedure The procedure was described for the patient and questions were answered. Blood Pressure: 111/61 ECG is on chart. Rhythm: NSR Plan of Care Patient will tolerate the procedure without complications. Adequate level of comfort will be maintained. Hemodynamics will remain stable Patient will recover from procedure without complications. Respiratory function will be maintained. Cardiac rhythm will remain stable. Patient temperature will be maintained. Patient and/or family have verbalized understanding of the procedure. Patient Education Chief Complaint/Reason for Test: Cardiac Cath Developmental Category: Adult (18-64 years) Developmentally Appropriate for Age: Yes Learning Barriers: None Education Needs: Procedure Education Method: Verbal Information Taught: Cardiac Cath Educational Evaluation: Able to repeat information Intravenous Access Time IV Size Location DC'd Fluid/Drip Rate Units RN 02:23 PM 20g 1 /" Patent On Arrival Lt Antecubital 0.9NaCl 25 ml/hr Silvia Malik RN Allergies hydrocodone Penicillins Oxycodone Vital Signs Time BP (mmHg) HR (bpm) O2 Sat. RR (bpm) LOC 01:38 PM 111 / 61 72 96 % 16 5 = Fully awake and oriented or at pre-proc level 02:39 PM / % 4 = Oriented but drowsy 02:39 PM / % 4 = Oriented but drowsy 02:54 PM / % 4 = Oriented but drowsy 02:37 PM 111 / 61 100 95 % 13 02:42 PM 95 / 61 76 90 % 21 02:44 PM 93 / 74 81 92 % 19 02:47 PM 106 / 63 73 96 % 13 02:52 PM 93 / 57 73 96 % 17 02:54 PM 99 / 49 71 96 % 17 02:57 PM 90 / 47 74 96 % 17 02:58 PM 91 / 41 77 95 % 13 03:02 PM 95 / 52 78 96 % 16 03:07 PM 102 / 48 80 97 % 16 Procedural Medications Time Medication Dose Units Method Given By 02:39 PM Oxygen 2 L/min nasal cannula Silvia Malik RN 02:40 PM Versed 3 mg Intravenous Silvia Malik RN 02:40 PM Fentanyl 50 mcg Intravenous Silvia Malik RN 02:45 PM Oxygen 6 L/min nasal cannula Silvia Malik RN 02:47 PM Oxygen 4 L/min nasal cannula Silvia Malik RN 02:55 PM Lidocaine 2% 0.5 ml Subcutaneous Edgar Chang MD, [facility] 02:55 PM Heparin 4000 units Nitroglycerin 200 mcg Verapamil 2.5 mg Intraarterial Edgar Chang MD, [facility] ASA Classification: CLASS II- Mild systemic disease (i.e. well-controlled diabetes, hypertension, asthma, cigarette smoking) Alonso Score Preprocedure Postprocedure Activity 2- Moves 4 extremities sustained head lift Activity 2- Moves 4 extremities sustained head lift Circulation 2- SBP +/= 20 points of pre-anesthetic level Circulation 2- SBP +/= 20 points of pre-anesthetic level Consciousness 2- Awake and alert oriented x 3 Consciousness 2- Awake and alert oriented x 3 O2 Saturation 2- Able to maintain O2 satruation of 92% on room air O2 Saturation 2- Able to maintain O2 satruation of 92% on room air Respiratory 2- Able to deep breathe and cough well Respiratory 2- Able to deep breathe and cough well Total Score 10 Total Score 10 Contrast Agent: Isovue Diagnostic Contrast: 84 ml Total Contrast: 84 ml Fluoro Dose: 434 mGy Procedure Log Time Note Enter By 01:50 PM CathStat 02:24 PM Pt arrived to optical laboratory mechanic 1 at 14:24 tsites 02:24 PM Patient charges- Angio tray pack, Navilyst 3mm J, Pulse Oximetry and ACIST tubing and transducer tsites 02:24 PM Case Delayed No tsites 02:24 PM Physician arrived 14:24 tsites 02:24 PM Meet and greet completed tsites 02:24 PM Sign in performed according to hospital policy. tsites 02:24 PM Procedure start 14:24 tsites 02:36 PM Vitals capture started with the following parameters, Patient=Adult, Interval=5 min, Initial Rtulwuts=151 mmHg, Deflation Rate=5 mmHg 02:37 PM IP=834 bpm, XYDQ=733/61 mmhg, SpO2=95.0 %, Resp=13 B/min, Comment=nsr 02:37 PM Recorded ECG: HR=71 Condition=Condition 1 02:38 PM Viviana Oneill RT (R) Position: Scrub Time in: 14:38 tsites 02:38 PM Natalya Sorto RN Position: Monitor Time in: 14: tsites 02:38 PM Silvia Malik RN Position: Auto Technician Time in: 14:38 tsites 02:39 PM Hair removed from procedure site in procedure lab using clippers. Right wrist and right groin prepped with Chloraprep by Natalya Sorto RN then patient draped. Skin intact. tsites 02:39 PM Time: 14:39 Oxygen on at 2 L/min per nasal cannula by Silvia Malik RN tsites 02:39 PM Time: 14:39 Patient comfortable and pain free: Yes tsites 02:39 PM Time: 14:39LOC: 4 = Oriented but drowsy tsites 02:39 PM Clinical Presentation: unstable angina tsites 02:40 PM Time: 14:40 Versed 3 mg Intravenous Given by Silvia Malik RN tsites 02:40 PM Time: 14:40 Fentanyl 50 mcg Intravenous Given by Silvia Malik RN tsites 02:42 PM HR=76 bpm, NIBP=95/61 mmhg, SpO2=90.0 %, Resp=21 B/min 02:43 PM NIBP STAT measurement started. 02:44 PM HR=81 bpm, NIBP=93/74 mmhg, SpO2=92.0 %, Resp=19 B/min, Comment=nsr 02:46 PM Time: 14:45 Oxygen on at 6 L/min per nasal cannula by Silvia Malik RN tsites 02:47 PM Time: 14:47 Oxygen on at 4 L/min per nasal cannula by Silvia Malik RN tsites 02:47 PM HR=73 bpm, KFBN=734/63 mmhg, SpO2=96.0 %, Resp=13 B/min, Comment=nsr 02:52 PM HR=73 bpm, NIBP=93/57 mmhg, SpO2=96.0 %, Resp=17 B/min, Comment=nsr 02:53 PM Pressure channel 1 zeroed. 02:54 PM NIBP STAT measurement started. 02:54 PM HR=71 bpm, NIBP=99/49 mmhg, SpO2=96.0 %, Resp=17 B/min 02:54 PM Time: 14:39 Patient comfortable and pain free: Yes tsites 02:54 PM Time: 14:39LOC: 4 = Oriented but drowsy tsites 02:55 PM Time out performed according to hospital policy tsites 02:55 PM Time: 14:55 0.5 ml Lidocaine 2% to right radial Subcutaneous Given by Edgar Chang MD, [facility] tsites 02:55 PM Access obtained by percutaneous puncture. 6Fr 11cm Terumo Glidesheath sheath placed in right Radial artery. [id number] tsites 02:55 PM Time: 14:55 Patient given 4,000 units Heparin, 200 mcg Nitroglycerin, and 2.5 mg Verapamil Intraarterial by Edgar Chang MD, [facility] tsites 02:56 PM Pressure channel 1 zeroed. 02:57 PM 5Fr TIG catheter inserted over the wire [facility] tsites 02:57 PM RCA angiography performed in multiple views. tsites 02:57 PM HR=74 bpm, NIBP=90/47 mmhg, SpO2=96.0 %, Resp=17 B/min, Comment=nsr 02:57 PM Recorded Pressure: Ao, HR=74, Condition=Condition 1 (Aorta) Ao 76/61/69 02:58 PM NIBP STAT measurement started. 02:58 PM Pressure channel 1 zeroed. 02:58 PM HR=77 bpm, NIBP=91/41 mmhg, SpO2=95.0 %, Resp=13 B/min, Comment=nsr 02:59 PM catheter repositioned to the RCA tsites 02:59 PM LCA angiography performed in multiple views. tsites 03:00 PM Recorded Pressure: Ao, HR=74, Condition=Condition 1 (Aorta) Ao 79/63/71 03:00 PM Coronary Dominance: right tsites 03:01 PM Lesion found in Distal LAD. Pre Stenosis: 60 Pre DORON Flow: tsites 03:01 PM Lesion found in Distal RCA. Pre Stenosis: 50 Pre DORON Flow: tsites 03:02 PM Lesion found in Ramus. Pre Stenosis: 50 Pre DORON Flow: tsites 03:02 PM Lesion found in 1st Marginal. Pre Stenosis: 99 Pre DORON Flow: tsites 03:02 PM HR=78 bpm, NIBP=95/52 mmhg, SpO2=96.0 %, Resp=16 B/min, Comment=nsr 03:02 PM Lesion found in Mid LAD. Pre Stenosis: 40 Pre DORON Flow: tsites 03:04 PM Recorded Pressure: LV, HR=84, Condition=Condition 1 (Left Ventricle) LV 103/17/20 03:04 PM Catheter removed tsites 03:04 PM 5Fr Pigtail catheter inserted over the wire [facility] tsites 03:05 PM Recorded Pressure: LV, Ao, HR=86, Condition=Condition 1 (Left Ventricle) LV 82/31/29, (Aorta) Ao 85/51/67 03:06 PM Catheter selectively placed in left ventricle tsites 03:06 PM Bolus angiogram of left Ventricle complete: 10 ml/sec for a total of 30 mls tsites 03:06 PM Catheter removed tsites 03:06 PM Lesion found in Mid Circumflex. Pre Stenosis: 50 Pre DORON Flow: tsites 03:07 PM Procedure completed at 15:07 tsites 03:07 PM HR=80 bpm, VQXI=471/48 mmhg, SpO2=97.0 %, Resp=16 B/min 03:07 PM Sign out completed: Radiation Dose 434 mGy Fluoro Time: 1.8 Isovue 370 - 200ml contrast 84 ml given by Edgar Chang MD, [facility]. Complications: NoneCardiac Rehab Consult needed: YesConfirmed administered medications: Yes tsites 03:07 PM Isovue 370 - 200ml,1 Bottle(s) used. tsites 03:07 PM Arterial sheath pulled, Vasc Band closure device used and was Successful S/N. tsites 03:08 PM 11 ml air in Vasc Band. tsites 03:08 PM Post ECG NSR tsites 03:08 PM Post Blood Pressure 102/48 tsites 03:08 PM 15:08 Post Pulses Rt Radial 1+ tsites 03:09 PM Information taught Cardiac Cath and Vasc Band tsites 03:09 PM Education needs Procedure, Plan of Care, and Responsibilities of Patient in Care tsites 03:09 PM Learning barriers :None tsites 03:09 PM Education Methods Verbal tsites 03:09 PM Education evaluation Able to repeat information tsites 03:09 PM Time: 14:54 Patient comfortable and pain free: Yes tsites 03:10 PM Time: 14:54LOC: 4 = Oriented but drowsy tsites 03:10 PM Site status No bleeding/hematoma - Rt Groin as reported by Viviana Mcghee RT (R) at 15:09 tsites 03:10 PM Plavix, Effient or Brilinta given No tsites 03:10 PM Delay to floor No tsites 03:10 PM Family placed in consult room. tsites 03:10 PM Complications: None tsites 03:15 PM Report given to Mila SCHAFER Pt taken to 2N Room #1. 15:15 tsites 03:15 PM Patient out of room: 15:15 tsites 03:15 PM Fluoro Time: 1.8 tsites 03:15 PM Isovue 370 - 200ml contrast 84 ml given by Edgar Chang MD, FACC. tsites 03:15 PM Radiation Dose 434 mGy tsites Complications Complication None None Hemodynamics Pressures Site Systolic/A Wave Diastolic/V Wave Mean AO 76 61 69 AO 79 63 71 LV 103 17 20 LV 82 31 29 AO 85 51 67 Post Procedure Information Blood Pressure: 102/48 mmHg Rhythm: NSR Post procedural instructions were given Closure Device Time Device Success/Fail 06/11/2016 3:05:00 PM Mechanical Compression Successful Site Checks Time Location Status Staff Sheath In? Note 03:09 PM Rt Groin No bleeding/hematoma Viviana Mcghee RT (R) Pulses Time Site Pre-Procedure Post-Procedure Note 06/11/2016 2:24:00 PM Bilateral DP \\T\\ PT Doppler 06/11/2016 2:40:00 PM Bilateral radial 1+ 3:08:00 PM Rt Radial 1+ Updated by Viviana Oneill RT (R) on 06/11/2016 3:19:28 PM Viviana Oneill RT electronically signed on 06/11/2016 3:20:14 PM with status of Final
[2016-06-11] MEDS ORDERED: Perflutren Lipid Microsphere 1.3 ML in 0.9 % Sodium Chloride 8.7 ML IVP ONE (15:45)
[2016-06-11] MEDS ORDERED: Perflutren Lipid Microsphere 2 ML VIAL ONE (15:48)
--- NOTE | 2016-06-11 16:13 | Invasive Diagnostic Lab ---
Name: Aris Ruiz Date of Study: 06/11/2016 Date: 1955 Ht: 178.0 cm /70.1 in Medical Record#: [id number] Age: 61 Wt: 128. kg / 282.19 lb Account/Order#: [id number] Gender: Male BSA: 2.42 Order #: [id number] Fluoro Dose: 434 mGy BMI: 40.4 Procedure Physician: Edgar Chang MD, FACC Referring MD: Omid Rainey MD Referring MD: Procedures Performed: LEFT HEART CATH Moderate sedation Indications: Unstable Angina Impressions: There is moderate three vessel coronary artery disease with severe small vessel disease which is unchanged from previous [facility] The left ventricle is normal and has normal contractility EF 65% Recommendations: Optimal medical therapy of patient's disease. Aggressive risk factor modification. Patient being referred for cardiac rehab. History/Risk Factors: Diabetes Hypertension Dyslipidemia CHF Prior [place] Procedure Access obtained in the right Radial artery by percutaneous puncture Complications: None, None Contrast: Isovue 84ml Closure Device: Mechanical Compression Hemodynamics: Pressures Site Systolic/ A Wave Diastolic/ V Wave End Diastolic/ Mean HR AO 76 61 69 74 AO 79 63 71 74 LV 103 17 20 84 LV 82 31 29 89 AO 85 51 67 85 LV Ventriculography Ejection Method: LV Gram Ejection Fraction: 65% Wall Motion: TENORIO Anterobasal Normal Anterolateral Normal Apical: Normal Inferoapical Normal Inferobasal Normal Coronary Dominance: right Lesion Findings/Interventions * Left Main Coronary Artery The LMCA is angiographically free of disease. * Left Anterior Descending There is a 40% stenosis in the Mid LAD. There is a 60% stenosis in the Distal LAD. * Circumflex The 1st Marginal is small in size. There is a 50% stenosis in the Mid Circumflex. There is a 99% stenosis in the 1st Marginal. * Ramus There is a 50% stenosis in the Ramus. * Right Coronary Artery There is a 50% stenosis in the Distal RCA. Updated by Viviana Oneill RT (R) on 06/11/2016 3:17:48 PM Edgar Chang MD, FACC electronically signed on 06/11/2016 4:07:56 PM with status of Final
--- NOTE | 2016-06-11 19:05 | Internal Med Progress Note ---
Date of Encounter: 06/11/16 Time of Encounter: 19:03 - Assessment and plan (1) Chest pain Current Visit: Yes Status: Acute Qualifiers: Chest pain type: unspecified Qualified Code(s): R07.9 - Chest pain, unspecified (2) SAUL (acute kidney injury) Current Visit: No Status: Acute (3) CAD (coronary artery disease) Current Visit: No Status: Chronic Qualifiers: Coronary Disease-Associated Artery/Lesion type: [place] artery [place] vs. 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 continue close monitoring of BP continue gentle iv hydration avoid anti-hypertensives. Qualifiers: Hypertension type: essential hypertension Qualified Code(s): I10 - Essential (primary) hypertension - Subjective Interval history: complains of mild chest pain, substernal. - Constitutional Vitals: Temp Pulse Resp BP Pulse Ox 97.9 F 85 16 85/55 95 06/11/16 12:08 06/11/16 13:30 06/11/16 12:39 06/11/16 14:09 06/11/16 13:15 General appearance: Present: A&O X 3, no acute distress - Head Head exam: Present: atraumatic, normocephalic - Eye Eye exam: Present: PERRL, conjuntiva pink, sclera anicteric Pupils: Present: PERRL - Neck Neck exam general surgery: Present: supple, trachea midline. Absent: lymphadenopathy - Respiratory Respiratory exam: Present: CTAB. Absent: accessory muscle use, rales, rhonchi, wheezes - Cardiovascular Cardiovascular exam: Present: RRR, +S1, +S2. Absent: diastolic murmur, gallop, rubs, systolic murmur - GI/Abdominal GI/Abdominal exam: Present: normal bowel sounds, soft, no peritoneal signs. Absent: distended, tenderness - Extremities Exam Extremities exam: Present: warm, radial pulses palpable and symetrical. Absent : calf tenderness, cyanotic, pedal edema - Neurological Exam Neurological exam: Present: CN II-XII intact, oriented X3, no focal deficits. Absent: pronater drift, facial droop, speech deficit - Skin Skin exam: Present: dry, intact Internal Medicine: Result - Labs CBC & Chem 7: 06/11/16 12:04 06/11/16 12:04 Labs: Short CBC 06/11/16 Range/Units 12:04 WBC 7.8 (4.3-11.1) K/mcL Hgb 12.5 L (12.9-16.9) g/dL Hct 36.8 L (37.5-50.1) % Plt Count 143 (140-400) K/mcL Neutrophils # 5.7 (1.6-8.9) K/mcL BMP 06/11/16 12:04 Sodium 136 Potassium 4.0 Chloride 102 Carbon Dioxide 23 BUN 12 Creatinine 1.30 H Glucose 129 H Calcium 9.0 Cardiac Enzymes 06/11/16 06/11/16 Range/Units 04:56 12:04 Troponin I 0.00 0.01 (0-0.03) ng/mL Liver Function 06/11/16 Range/Units 12:04 Total Bilirubin 0.5 (0.2-1.2) mg/dL AST 17 (5-34) Units/L ALT 20 (0-55) Units/L Alkaline Phosphatase 80 (38-126) Units/L Albumin 3.4 L (3.5-5.0) g/dL - ABG Interpretation ABG results: PT/INR, D-dimer PT 12.7 Seconds (9.4-12.1) H 06/10/16 15:10 Consult Discharge Plan - Plan Referrals: Omid Rainey MD [Primary Care Provider] - 06/17/16 1:15 pm Arun Núñez CNP [Advanced Practice Nurse] - 06/12/16 2:30 pm
[2016-06-12] MEDS ORDERED: Acetaminophen IV 1,000 MG/100 ML INFUS..BTL IVPB ONE (02:09)
[2016-06-12] MEDS: 0.9 % Sodium Chloride 1,000 ML IVC SCH (02:43)
[2016-06-12] MEDS: traMADol 50 MG TABLET PO PRN ×3 (04:46→19:55)
[2016-06-12] MEDS ORDERED: *HR* Morphine 2 MG/ML SYRINGE IVP ONE ×2 (06:06→21:30)
[2016-06-12] MEDS: *HR* Enoxaparin 40 MG/0.4 ML SYRINGE SQ SCH (06:23)
[2016-06-12] MEDS: Ranolazine 500 MG TAB.ER.12H PO SCH ×2 (07:49→21:00)
[2016-06-12] MEDS: Aspirin Enteric Coated 81 MG Tablet PO SCH (07:50)
[2016-06-12] MEDS: Pregabalin 75 MG CAPSULE PO SCH ×2 (07:50→21:00)
[2016-06-12] MEDS: Insulin LISPRO 300 UNITS/3 ML VIAL SQ SCH ×4 (07:55→20:52)
--- NOTE | 2016-06-12 08:20 | Cardiology Progress Note ---
Date of Encounter: 06/12/16 Time of Encounter: 08:30 Assessment and Plan (1) Chest pain Current Visit: Yes Status: Acute Per Cardiology: Patient with chronic chest pain due to traumatic injury and hemothorax in the past. However, patient also has known CAD. Patient reports increasing chest pain symptoms from baseline and increased utilization of nitroglycerin pills with minimal relief. Troponins negative 3. Patient reports current chest pain about his baseline. Status post left heart catheterization which showed no lesions requiring intervention-- mid LAD 40% stenosis, distal LAD 60% stenosis; mid circumflex 50% stenosis, and OM1 99% stenosis (small vessel, known previous lesion); ramus 50% stenosis, and distal RCA 50% stenosis. Recommend continue with medical management. Cardiology signoff, follow-up scheduled, reconsult as needed. He is DNR Comfort Care arrest DNI. Qualifiers: Chest pain type: unspecified Qualified Code(s): R07.9 - Chest pain, unspecified (2) CAD (coronary artery disease) Current Visit: No Status: Chronic Per Cardiology: Known history of CAD with stenting 3 in 1999, stenting 1 in 2005, stenting 2 2007 and stenting 1 in 2010. On aspirin, Plavix, statin, [place] inhibitor, Ranexa. Patient was on Coreg 25 mg by mouth twice a day daily, however upon further discussion family member indicated he did run out of medications recently. They did confirm he missed his Coreg the past 2 weeks. Patient also previously on long-acting nitrate of Imdur 120mg by mouth daily. Patient with episode of hypotension yesterday. Suspect medication induced. Long-acting nitrate and beta alejandra currently off. Systolic blood pressures improved the 120s currently. Recommend resuming Coreg 3.125 mg by mouth twice a day and Imdur 30 mg by mouth daily. Monitor systolic blood pressure closely. Further titrations to be made in outpatient setting. Qualifiers: Coronary Disease-Associated Artery/Lesion type: [place] artery [place] vs. transplanted heart: [place] heart Associated angina: with unspecified angina Qualified Code(s): I25.119 - Atherosclerotic heart disease of [place] coronary artery with unspecified angina pectoris (3) Edema of upper extremity Current Visit: Yes Status: Acute Per Cardiology: Patient complaint of bilateral upper and lower extremity edema. Received Lasix during hospital stay and -1.9L. Current weight 281 pounds. Of note, he weighed 281 pounds during my visit with him in April 2016. Previous EF 60% on echo in April 2015. EF on cath 65%. On IV Lasix per primary service and has bilateral upper extremity venous duplex pending for further evaluation of arm pain. Further management per primary service. Discussion w patient/family: The assessment and plan as outlined above was discussed with the patient and/or family members who expressed understanding and agreement. All questions were answered. Thank you for involving us in the care of your patient. Please call with any questions. Subjective Principal diagnosis: CP Interval history: Patient reports left-sided chest discomfort remains about his baseline during this hospital stay with some pain down his left arm. Again, reports slightly worse than his baseline at home. Concerns of swelling to bilateral upper extremities. Denies any concerns from his right wrist site from heart catheterization. Objective Vital Signs, Last 4 Hours Temp Pulse Resp BP Pulse Ox 06/12/16 07:01 97.6 F 64 20 119/70 100 06/12/16 05:02 97.7 F 73 20 130/69 99 General: Conversant, No Apparent Distress HEENT: Atraumatic, Normocephaly Cardiac: Reg Rate and Rhythm, Normal S1 and S2, No Murmur Lungs: Other (Diminished to left lower lobe) Neuro: Alert and responsive, No focal deficits noted Skin: No rashes noted on visualized skin, Other (Right wrist site dry and intact , no hematoma, no ecchymosis, right radial pulse 2+ palpable) Extremities: No Edema Results 06/11/16 12:04 06/12/16 09:03 Active Medications Aspirin (Aspirin Ec) 81 mg PO DAILY EBER Stop: 12/11/16 09:01 Last Admin: 06/12/16 07:50 Dose: 81 mg Atorvastatin Calcium (Lipitor) 80 mg PO HS EBER Stop: 12/11/16 21:01 Last Admin: 06/11/16 20:50 Dose: 80 mg Clopidogrel Bisulfate (Plavix) 75 mg PO DAILY EBER Stop: 12/11/16 09:01 Last Admin: 06/12/16 07:50 Dose: 75 mg Dextrose/Water (Dextrose 50% (Syg)) 25 ml IVP AD PRN PRN Reason: Hypoglycemia Stop: 12/10/16 21:11 Enoxaparin Sodium (Lovenox) 40 mg SQ 0600 EBER PRN Reason: Protocol Stop: 12/11/16 06:01 Last Admin: 06/12/16 06:23 Dose: 40 mg Glucagon (Glucagen) 1 mg IM ONCE PRN PRN Reason: Hypoglycemia Stop: 12/10/16 21:11 Glucose (Gluctose) 15 gm PO ONCE PRN PRN Reason: Hypoglycemia Stop: 12/10/16 21:11 Glucose (Gluctose) 30 gm PO ONCE PRN PRN Reason: Hypoglycemia Stop: 12/10/16 21:11 Dextrose (Dextrose 5%) 1,000 mls @ 100 mls/hr IV CONT PRN PRN Reason: HYPOGLYCEMIA Stop: 12/10/16 21:11 Sodium Chloride (0.9 % Sodium Chloride) 250 mls @ 0 mls/hr IV CONT EBER PRN Reason: Wide Open Stop: 12/11/16 12:16 Last Admin: 06/11/16 12:52 Dose: 999 mls/hr Sodium Chloride (0.9 % Sodium Chloride) 1,000 mls @ 100 mls/hr IVC .Q10H EBER Stop: 12/11/16 12:46 Last Admin: 06/12/16 02:43 Dose: 100 mls/hr Insulin Human Lispro (Humalog) 0 units SQ HS EBER PRN Reason: Protocol Stop: 12/11/16 21:01 Last Admin: 06/11/16 22:51 Dose: Not Given Insulin Human Lispro (Humalog) 0 units SQ TIDAC EBER PRN Reason: Protocol Stop: 12/11/16 07:31 Last Admin: 06/12/16 07:55 Dose: Not Given Naloxone HCl (Narcan) 0.4 mg IVP Q2MIN PRN PRN Reason: Opioid Reversal Stop: 12/10/16 21:07 Nitroglycerin (Nitroglycerin) 0.4 mg SL Q5MIN PRN PRN Reason: Chest Pain Stop: 12/10/16 21:10 Last Admin: 06/11/16 02:42 Dose: 0.4 mg Ondansetron HCl (Zofran) 4 mg IVP Q8HR PRN PRN Reason: Nausea And Vomiting Stop: 12/10/16 21:07 Pharmacy Profile Note (Patient Taking Own Medication) 1 each PO DAILY EBER Stop: 12/11/16 09:01 Last Admin: 06/11/16 08:55 Dose: Not Given Pregabalin (Lyrica) 150 mg PO BID [facility] Stop: 12/11/16 09:01 Last Admin: 06/12/16 07:50 Dose: 150 mg Ranolazine (Ranexa) 1,000 mg PO BID EBER Stop: 12/11/16 09:01 Last Admin: 06/12/16 07:49 Dose: 1,000 mg Sertraline HCl (Zoloft) 100 mg PO DAILY [facility] Stop: 12/11/16 09:01 Last Admin: 06/12/16 07:50 Dose: 100 mg Tramadol HCl (Ultram) 50 mg PO Q6H PRN PRN Reason: Pain Stop: 12/10/16 18:20 Last Admin: 06/12/16 04:46 Dose: 50 mg - Imaging and Cardiology Cardiac cath: report reviewed - EKG Interpretation EKG results cardiology: other Consult Discharge Plan - Plan Referrals: Omid Rainey MD [Primary Care Provider] - 06/17/16 1:15 pm Arun Núñez CNP [Advanced Practice Nurse] - 06/12/16 2:30 pm
[2016-06-12] MEDS ORDERED: *HR* Morphine 2 MG/ML SYRINGE IVP STA (08:53)
[2016-06-12 09:32] LABS: BUN/Creatinine Ratio 9 (6-26); Blood Urea Nitrogen 10 mg/dL (8-26); Calcium 8.7 mg/dL (8.6-10.8); Carbon Dioxide 21 mEq/L (19-29); Chloride 104 mEq/L (98-109); Glucose 113 mg/dL (70-99); Osmolality,Calculated 282 (280-300); Potassium 4.1 mEq/L (3.5-4.5); Sodium 136 mEq/L (136-145); eGFR For African Americans > 60 (> 60); eGFR For Non-African Americans > 60 (> 60)
--- NOTE | 2016-06-12 10:29 | Internal Med Progress Note ---
Date of Encounter: 06/12/16 Time of Encounter: 10:27 - Assessment and plan (1) Chest pain Current Visit: Yes Status: Acute Qualifiers: Chest pain type: unspecified Qualified Code(s): R07.9 - Chest pain, unspecified (2) SAUL (acute kidney injury) Current Visit: No Status: Acute (3) CAD (coronary artery disease) Current Visit: No Status: Chronic Qualifiers: Coronary Disease-Associated Artery/Lesion type: [place] artery [place] vs. 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 Upper extremity edema, resume Lasix 40mg iv bid. Upper extremity pain is from Diabetic neuropathy, continue lyrica. BP improved, will slowly add bblocker and nitrates. discussed with cardiology nurse practitioner. Qualifiers: Hypertension type: essential hypertension Qualified Code(s): I10 - Essential (primary) hypertension - Subjective Interval history: no new complains today. - Constitutional Vitals: Temp Pulse Resp BP Pulse Ox 97.6 F 64 20 119/70 100 06/12/16 07:01 06/12/16 07:01 06/12/16 07:01 06/12/16 07:01 06/12/16 07:01 General appearance: Present: A&O X 3, no acute distress - Head Head exam: Present: atraumatic, normocephalic - Eye Eye exam: Present: PERRL, conjuntiva pink, sclera anicteric Pupils: Present: PERRL - Neck Neck exam general surgery: Present: supple, trachea midline. Absent: lymphadenopathy - Respiratory Respiratory exam: Present: CTAB. Absent: accessory muscle use, rales, rhonchi, wheezes - Cardiovascular Cardiovascular exam: Present: RRR, +S1, +S2. Absent: diastolic murmur, gallop, rubs, systolic murmur - GI/Abdominal GI/Abdominal exam: Present: normal bowel sounds, soft, no peritoneal signs. Absent: distended, tenderness - Extremities Exam Extremities exam: Present: warm, radial pulses palpable and symetrical. Absent : calf tenderness, cyanotic Additional comments: trace non pitting upper and lower extremity edema. - Neurological Exam Neurological exam: Present: CN II-XII intact, oriented X3, no focal deficits. Absent: pronater drift, facial droop, speech deficit - Skin Skin exam: Present: dry, intact Internal Medicine: Result - Labs CBC & Chem 7: 06/11/16 12:04 06/12/16 09:03 Labs: BMP 06/12/16 09:03 Sodium 136 Potassium 4.1 Chloride 104 Carbon Dioxide 21 BUN 10 Creatinine 1.09 Glucose 113 H Calcium 8.7 - ABG Interpretation ABG results: PT/INR, D-dimer PT 12.7 Seconds (9.4-12.1) H 06/10/16 15:10 Consult Discharge Plan - Plan Referrals: Omid Rainey MD [Primary Care Provider] - 06/17/16 1:15 pm Arun Núñez CNP [Advanced Practice Nurse] - 06/12/16 2:30 pm
[2016-06-12] MEDS: Furosemide 40 MG/4 ML VIAL IVP SCH ×2 (10:35→21:00)
[2016-06-12] MEDS: Isosorbide MONOnitrate (24 HR) 30 MG TAB.ER.24H PO SCH (11:55)
[2016-06-12] MEDS ORDERED: *HR* LORazepam 1 MG TABLET PO ONE (14:23)
--- NOTE | 2016-06-12 15:48 | Electrocardiograph Report ---
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
[2016-06-12] MEDS: *HR* Morphine 2 MG/ML SYRINGE IVP PRN (16:43)
--- NOTE | 2016-06-12 17:14 | Venous Imaging Report ---
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 Recommendations: After imaging the patient returned to their room. Test completed on 06/12/2016 at 2:35:00 pm. Critical findings reported to Prelim note in EMR prelim note in emr at 2:35:19 pm on 06/12/2016 by Mara Scales RDCS, KATIE. Findings Prior Study: No prior study available for comparison. Upper Extremity Venous Duplex Side Vein Compress Spontaneous Flow Augment Right Jugular Normal Yes Phasic Yes Right Subclavian Normal Yes Phasic Yes Right Axillary Normal Yes Phasic Yes Right Brachial Normal Yes Phasic Yes Right Cephalic Normal Yes Phasic Yes Right Basilic Normal Yes Phasic Yes Right Radial Normal Yes Phasic Yes Right Ulnar Normal Yes Phasic Yes Left Jugular Normal Yes Phasic Yes Left Subclavian Normal Yes Phasic Yes Left Axillary Normal Yes Phasic Yes Left Brachial Normal Yes Phasic Yes Left Cephalic Normal Yes Phasic Yes Left Basilic Normal Yes Phasic Yes Left Radial Normal Yes Phasic Yes Left Ulnar Normal Yes Phasic Yes Updated by Honorio Ramirez MD, FACS on 06/12/2016 5:07:15 PM Honorio Ramirez MD electronically signed on 06/12/2016 5:07:46 PM with status of Final
[2016-06-13] MEDS: traMADol 50 MG TABLET PO PRN (03:44)
[2016-06-13] MEDS: *HR* Enoxaparin 40 MG/0.4 ML SYRINGE SQ SCH (05:37)
[2016-06-13 07:00] VITALS: BP 107/62
[2016-06-13] MEDS: Insulin LISPRO 300 UNITS/3 ML VIAL SQ SCH (07:39)
[2016-06-13] MEDS: Pregabalin 75 MG CAPSULE PO SCH (08:06)
[2016-06-13] MEDS: Isosorbide MONOnitrate (24 HR) 30 MG TAB.ER.24H PO SCH (08:06)
[2016-06-13] MEDS: Furosemide 40 MG/4 ML VIAL IVP SCH (08:06)
[2016-06-13] MEDS: Aspirin Enteric Coated 81 MG Tablet PO SCH (08:06)
[2016-06-13] MEDS: Ranolazine 500 MG TAB.ER.12H PO SCH (08:06)
[2016-06-13] MEDS: *HR* Morphine 2 MG/ML SYRINGE IVP PRN (09:05)
--- NOTE | 2016-06-13 11:08 | Discharge Summary ---
Date of Encounter: 06/13/16 Time of Encounter: 11:07 - Discharge Diagnosis (1) Chest pain Priority: Primary Status: Acute Qualifiers: Chest pain type: unspecified Qualified Code(s): R07.9 - Chest pain, unspecified (2) SAUL (acute kidney injury) Priority: Primary Status: Acute (3) CAD (coronary artery disease) Priority: Secondary Status: Chronic Qualifiers: Coronary Disease-Associated Artery/Lesion type: [place] artery [place] vs. 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 (5) Hypertension Priority: Secondary Status: Chronic Qualifiers: Hypertension type: essential hypertension Qualified Code(s): I10 - Essential (primary) hypertension - Discharge Medications Prescriptions: Carvedilol [Coreg] 3.125 mg PO BIDWM #90 tablet Isosorbide MONOnitrate (24 HR) [Imdur] 30 mg PO DAILY #90 tab.er.24h Home Medications: Aspirin Enteric Coated [Aspirin EC] 81 mg PO DAILY 05/03/15 [History] Clopidogrel [Plavix] 75 mg PO DAILY 05/03/15 [History] Ezetimibe [Zetia] 10 mg PO DAILY 05/03/15 [History] Metformin [Glucophage] 500 mg PO 0800 05/03/15 [History] Nitroglycerin [Nitrostat] 0.4 mg SL Q5M PRN 05/03/15 [History] Pregabalin [Lyrica] 150 mg PO BID 05/03/15 [History] Ranolazine [Ranexa] 1,000 mg PO BID 05/03/15 [History] Sertraline [Zoloft] 100 mg PO DAILY tablet 08/30/15 [Rx] Atorvastatin Calcium [Lipitor] 80 mg PO HS 06/10/16 [History] Furosemide [Lasix] 40 mg PO BID 06/10/16 [History] Carvedilol [Coreg] 3.125 mg PO BIDWM #90 tablet 06/13/16 [Rx] Isosorbide MONOnitrate (24 HR) [Imdur] 30 mg PO DAILY #90 tab.er.24h 06/13/16 [ Rx] Allergies/Adverse Reactions: Allergies Penicillins Allergy (Verified 08/29/15 18:44) Hives hydrocodone Adverse Reaction (Verified 08/29/15 18:44) Itching Oxycodone Adverse Reaction (Verified 08/29/15 18:44) Itching Procedures/tests Complete & Pending: Procedures Performed prior 72 hours Category Date Time Status ECG 12 lead ECG [ECG] Routine Y 06/11/16 12:02 Completed EV venous imaging UE BI Routine Y 06/12/16 02:07 Completed Date of admission: 06/11/16 19:09 Primary care physician: Omid Rainey MD Consults: 06/12/16 13:09 Consult to Pastoral Services [CONS] Routine Comment: - Patient Status Disposition: Home, Self-Care Condition: Good Overall status at discharge: patient is progressing back to baseline - Discharge Instructions Follow Up With: Omid Raniey MD [Primary Care Provider] - 06/17/16 1:15 pm Arun Núñez CNP [Advanced Practice Nurse] - 07/02/16 3:00 pm - Diet and Activity Activity: increase activity as tolerated Diet: low fat, low cholesterol Hospital course: Mr. Ruiz is a 61 year old male who presented with chest pain. He was seen by cardiology. He had a LHC which showed mid LAD 40% stenosis, distal LAD 60% stenosis; mid circumflex 50% stenosis, and OM1 99% stenosis (small vessel, known previous lesion); ramus 50% stenosis, and distal RCA 50% stenosis. Recommendations to continue with medical management. Pt also had episodes of hypotension and his BP meds(coreg was decreased. He was continued on lasix. BP has improved and will be discharged in stable condition. - Time Spent with Patient Total time spent providing and/or coordinating discharge services: - Constitutional Vitals: Temp Pulse Resp BP Pulse Ox 98.6 F 83 77 107/62 95 06/13/16 06:53 06/13/16 03:45 06/13/16 06:53 06/13/16 06:53 06/13/16 06:53 General appearance: Present: A&O X 3, no acute distress - Head Head exam: Present: atraumatic, normocephalic - Eye Eye exam: Present: PERRL, conjuntiva pink, sclera anicteric Pupils: Present: PERRL - Neck Neck exam general surgery: Present: supple, trachea midline. Absent: lymphadenopathy - Respiratory Respiratory exam: Present: CTAB. Absent: accessory muscle use, rales, rhonchi, wheezes - Cardiovascular Cardiovascular exam: Present: RRR, +S1, +S2. Absent: diastolic murmur, gallop, rubs, systolic murmur - GI/Abdominal GI/Abdominal exam: Present: normal bowel sounds, soft, no peritoneal signs. Absent: distended, tenderness - Extremities Exam Extremities exam: Present: warm, radial pulses palpable and symetrical. Absent : calf tenderness, cyanotic, pedal edema - Neurological Exam Neurological exam: Present: CN II-XII intact, oriented X3, no focal deficits. Absent: pronater drift, facial droop, speech deficit - Skin Skin exam: Present: dry, intact
== END 2016-06-13 13:57 | disposition home or self-care (01) | DRG 287 ==
LOC: 3BNU 14:44 → EMEROO 14:44 → SUATTDRO 16:51 → 3BNU 17:31 → 2NNU 06-11 13:21
PROVIDERS: ADMIT Internal Medicine; ATTEND Family Medicine

== ENCOUNTER 2017-09-02 09:12 | Observation (INO) ==
--- NOTE | 2017-09-02 09:16 | Emergency Department Note ---
Disposition Clinical Impression: Chest pain Disposition: Admitted As Inpatient Condition: Fair Referrals: Omid Rainey MD [Primary Care Provider] - General Adult HPI - General Stated complaint: CP Time Seen by Provider: 09/02/17 09:13 - Related Data Home Medications Medication Instructions Recorded Confirmed Aspirin Enteric Coated [Aspirin EC] 81 mg PO DAILY 05/03/15 09/02/17 Clopidogrel [Plavix] 75 mg PO DAILY 05/03/15 09/02/17 Ezetimibe [Zetia] 10 mg PO DAILY 05/03/15 09/02/17 Metformin [Glucophage] 500 mg PO 0800 05/03/15 09/02/17 Atorvastatin Calcium [Lipitor] 80 mg PO HS 06/10/16 09/02/17 Furosemide [Lasix] 40 mg PO BID 06/10/16 09/02/17 Carvedilol [Coreg] 37.5 mg PO BID 08/15/16 09/02/17 Diltiazem CD (24hr) [Cardizem CD] 120 mg PO DAILY 08/15/16 09/02/17 Gabapentin [Neurontin] 600 mg PO TID 09/02/17 09/02/17 Isosorbide MONOnitrate (24 HR) 30 mg PO DAILY 09/02/17 09/02/17 [Imdur] Losartan [Cozaar] 25 mg PO DAILY 09/02/17 09/02/17 Nitroglycerin [Nitrostat] 0.4 mg SL Q5M PRN 09/02/17 09/02/17 Previous Rx's Medication Instructions Recorded Sertraline [Zoloft] 100 mg PO DAILY tablet 08/30/15 Allergies Allergy/AdvReac Type Severity Reaction Status Date / Time Penicillins Allergy Hives Verified 10/15/16 09:08 hydrocodone AdvReac Itching Verified 10/15/16 09:08 Oxycodone AdvReac Itching Verified 10/15/16 09:08 Past Medical History - Past Medical History Medical history: Reports: arthritis, CHF, COPD, coronary artery disease, diabetes, hyperlipidemia, hypertension, myocardial infarction, other Surgical history: Reports: angioplasty/stent, prostatectomy, other Psychiatric history: Reports: no psych history - Social History Smoking Status: Former smoker Smokeless Tobacco Status: No Alcohol use: Reports: none Drug use: Reports: none Course Vital Signs Temperature 97.8 F 09/02/17 09:14 Pulse Rate 70 09/02/17 09:14 Respiratory Rate 18 09/02/17 09:14 Blood Pressure 144/81 09/02/17 09:14 O2 Sat by Pulse Oximetry 97 09/02/17 09:14 Temperature 97.8 F 09/02/17 09:14 Pulse Rate 70 09/02/17 09:35 Respiratory Rate 18 09/02/17 09:35 Blood Pressure 110/62 09/02/17 09:35 O2 Sat by Pulse Oximetry 90 09/02/17 09:35 Oxygen Delivery Oxygen Delivery Room Air Medical Decision Making - Lab Data Result diagrams: 09/02/17 09:22 09/02/17 09:22 Lab Results 09/02/17 09/02/17 09/02/17 Range/Units 09:22 09:22 09:22 WBC 6.0 (4.3-11.1) K/mcL RBC 4.07 L (4.19-5.50) M/mcL Hgb 13.5 (12.9-16.9) g/dL Hct 39.7 (37.5-50.1) % MCV 97.5 (83.0-100.0) fL MCH 33.2 (28.0-33.3) pg MCHC 34.0 (31.6-35.5) g/dL RDW 13.9 (11.5-14.5) % Plt Count 141 (140-400) K/mcL MPV 11.0 (9.4-12.4) fL Immature Gran % 1.0 (0-4) % Seg Neutrophils % 58.0 % Lymphocytes % 25.6 % Monocytes % 13.6 % Eosinophils % 1.3 % Basophils % 0.5 % Neutrophils # 3.5 (1.6-8.9) K/mcL Lymphocytes # 1.5 (0.6-4.6) K/mcL Monocytes # 0.8 (0.0-1.3) K/mcL Eosinophils # 0.1 (0.0-0.6) K/mcL Basophils # 0.0 (0.0-0.2) K/mcL PT 11.3 (9.4-12.1) Seconds INR 1.1 Sodium (136-145) mEq/L Potassium (3.5-5.1) mEq/L Chloride (98-107) mEq/L Carbon Dioxide (23-29) mEq/L BUN (8-23) mg/dL Creatinine (0.70-1.30) mg/dL Est GFR ( Amer) (> 60) Est GFR (Non-Af Amer) (> 60) BUN/Creatinine Ratio (6-26) Glucose (70-105) mg/dL Calculated Osmolality (280-300) Calcium (8.6-10.3) mg/dL Total Bilirubin (0.3-1.0) mg/dL AST (13-39) Units/L ALT (7-52) Units/L Alkaline Phosphatase (34-104) Units/L Troponin I (< 0.04) ng/mL B-Natriuretic Peptide 40 (Less than 100) pg/mL Serum Total Protein (6.4-8.9) g/dL Albumin (3.5-5.7) g/dL Globulin (2.4-3.5) g/dL Albumin/Globulin Ratio (1.1-2.2) 09/02/17 Range/Units 09:22 WBC (4.3-11.1) K/mcL RBC (4.19-5.50) M/mcL Hgb (12.9-16.9) g/dL Hct (37.5-50.1) % MCV (83.0-100.0) fL MCH (28.0-33.3) pg MCHC (31.6-35.5) g/dL RDW (11.5-14.5) % Plt Count (140-400) K/mcL MPV (9.4-12.4) fL Immature Gran % (0-4) % Seg Neutrophils % % Lymphocytes % % Monocytes % % Eosinophils % % Basophils % % Neutrophils # (1.6-8.9) K/mcL Lymphocytes # (0.6-4.6) K/mcL Monocytes # (0.0-1.3) K/mcL Eosinophils # (0.0-0.6) K/mcL Basophils # (0.0-0.2) K/mcL PT (9.4-12.1) Seconds INR Sodium 136 (136-145) mEq/L Potassium 3.7 (3.5-5.1) mEq/L Chloride 102 (98-107) mEq/L Carbon Dioxide 27 (23-29) mEq/L BUN 13 (8-23) mg/dL Creatinine 0.98 (0.70-1.30) mg/dL Est GFR ( Amer) > 60 (> 60) Est GFR (Non-Af Amer) > 60 (> 60) BUN/Creatinine Ratio 13 (6-26) Glucose 154 H (70-105) mg/dL Calculated Osmolality 285 (280-300) Calcium 9.3 (8.6-10.3) mg/dL Total Bilirubin 0.5 (0.3-1.0) mg/dL AST 18 (13-39) Units/L ALT 22 (7-52) Units/L Alkaline Phosphatase 85 (34-104) Units/L Troponin I < 0.03 (< 0.04) ng/mL B-Natriuretic Peptide (Less than 100) pg/mL Serum Total Protein 7.0 (6.4-8.9) g/dL Albumin 4.3 (3.5-5.7) g/dL Globulin 2.7 (2.4-3.5) g/dL Albumin/Globulin Ratio 1.6 (1.1-2.2) Critical Care Time Critical Care Time: Yes Total Critical Care Time: 30 Attestation: The high probability of a clinically significant, sudden or life threatening deterioration of the [] system(s) required my full and direct attention, intervention and personal management. The aggregate critical care time was [] minutes. This time is in addition to time spent performing reported procedures but includes the following: [] Data Review and interpretation [] Patient assessment and monitoring of vital signs [] Documentation [] Medication orders and management Attestation Statement - Attestation Attestation: I examined this patient and my medical decision-making was reviewed with the Resident Physician. I agree with the documented findings, disposition and treatment plan as described except to the extent set forth below. [id number] time provided Patient arrives complaining of chest discomfort starting last evening. Pain radiates to his back into his left arm. He has a history of coronary artery disease with previous stents and CABG. He took a home supply of nitroglycerin with partial temporary relief. He appears in acute distress upon arrival
[2017-09-02] MEDS ORDERED: Aspirin 81 MG TAB.CHEW PO ONE (09:21)
--- NOTE | 2017-09-02 09:24 | Emergency Department Note ---
Disposition Clinical Impression: Chest pain Qualifiers: Chest pain type: unspecified Qualified Code(s): R07.9 - Chest pain, unspecified Disposition: Admitted As Inpatient Condition: Fair Referrals: Omid Rainey MD [Primary Care Provider] - Time of Disposition: 10:16 General Adult HPI - General Stated complaint: CP Time Seen by Provider: 09/02/17 09:13 Source: patient Mode of arrival: ambulatory Limitations: no limitations Nursing Notes Reviewed: Yes Vital Signs Reviewed: Yes - History of Present Illness HPI Narrative: 62-year-old male with a history of ACS and stents in the past on Plavix and aspirin presents for evaluation of chest pain. Patient states symptom onset was last night. Patient had intermittent pain since then. Patient describes left-sided chest pressure with radiation to his left shoulder. Patient notes some dyspnea. No diaphoresis or vomiting. Similar presentation to when he had his heart attack in 2010. Patient did take aspirin as well as nitroglycerin which did not intermittently improved the pain. Patient states that the pain appears to be recurring. Denies any abdominal pain. Denies any fevers or cough. - Related Data Home Medications Medication Instructions Recorded Confirmed Aspirin Enteric Coated [Aspirin EC] 81 mg PO DAILY 05/03/15 09/02/17 Clopidogrel [Plavix] 75 mg PO DAILY 05/03/15 09/02/17 Ezetimibe [Zetia] 10 mg PO DAILY 05/03/15 09/02/17 Metformin [Glucophage] 500 mg PO 0800 05/03/15 09/02/17 Atorvastatin Calcium [Lipitor] 80 mg PO HS 06/10/16 09/02/17 Furosemide [Lasix] 40 mg PO BID 06/10/16 09/02/17 Carvedilol [Coreg] 37.5 mg PO BID 08/15/16 09/02/17 Diltiazem CD (24hr) [Cardizem CD] 120 mg PO DAILY 08/15/16 09/02/17 Gabapentin [Neurontin] 600 mg PO TID 09/02/17 09/02/17 Isosorbide MONOnitrate (24 HR) 30 mg PO DAILY 09/02/17 09/02/17 [Imdur] Losartan [Cozaar] 25 mg PO DAILY 09/02/17 09/02/17 Nitroglycerin [Nitrostat] 0.4 mg SL Q5M PRN 09/02/17 09/02/17 Previous Rx's Medication Instructions Recorded Sertraline [Zoloft] 100 mg PO DAILY tablet 08/30/15 Allergies Allergy/AdvReac Type Severity Reaction Status Date / Time Penicillins Allergy Hives Verified 10/15/16 09:08 hydrocodone AdvReac Itching Verified 10/15/16 09:08 Oxycodone AdvReac Itching Verified 10/15/16 09:08 All systems ED: reviewed and negative except as stated. Constitutional: Denies: fever Cardiovascular: Reports: chest pain. Denies: palpitations Respiratory: Denies: cough, dyspnea, sputum production Gastrointestinal: Denies: abdominal pain, nausea, vomiting Past Medical History - Past Medical History Source: patient Medical history: Reports: arthritis, CHF, COPD, coronary artery disease, diabetes, hyperlipidemia, hypertension, myocardial infarction, other Surgical history: Reports: angioplasty/stent, prostatectomy, other Psychiatric history: Reports: no psych history - Social History Smoking Status: Former smoker Smokeless Tobacco Status: No Alcohol use: Reports: none Drug use: Reports: none Physical Exam - General Limitations: no limitations General appearance: alert, in no apparent distress - Head Head exam: atraumatic, normocephalic, normal inspection - Eye Eye exam: Present: normal appearance - ENT ENT exam: normal exam - Neck Neck exam: Present: normal inspection - Chest Chest inspection: Present: normal inspection, symmetric chest wall rise - Respiratory Respiratory exam: Present: normal lung sounds bilaterally. Absent: respiratory distress - Cardiovascular Cardiovascular exam: Present: regular rate, normal rhythm. Absent: systolic murmur - Abdominal Exam Abdominal exam: Present: soft, Non-Tender - Extremities Exam Extremities exam: Present: normal inspection. Absent: pedal edema - Expanded Lower Extremity Exam Neurovascular/Tendon exam: Present: normal capillary refill - Neurological Exam Neurological exam: Present: alert, oriented X3 - Skin Skin exam: Present: warm, dry, intact, normal color Course Course Narrative: Patient seen and examined. Patient is in no acute distress on exam. Patient will get a cardiac workup including chest x-ray, labs, aspirin and nitroglycerin. Disposition likely admission. - Reevaluation(s) Reevaluation #1: Patient's pain relieved after 2 nitroglycerin. Patient states his pain is starting to recur. Patient will be placed on a nitroglycerin drip. Time: 10:04 Reevaluation #2: Patient is up-to-date on plan of care. Time: 10:29 Vital Signs Temperature 97.8 F 09/02/17 09:14 Pulse Rate 70 09/02/17 09:14 Respiratory Rate 18 09/02/17 09:14 Blood Pressure 144/81 09/02/17 09:14 O2 Sat by Pulse Oximetry 97 09/02/17 09:14 Temperature 97.8 F 09/02/17 09:14 Pulse Rate 66 09/02/17 10:15 Respiratory Rate 18 09/02/17 10:15 Blood Pressure 129/67 09/02/17 10:15 O2 Sat by Pulse Oximetry 96 09/02/17 10:15 Oxygen Delivery Oxygen Delivery Nasal Cannula Medical Decision Making - [facility] Narrative Medical decision making narrative: 62-year-old male persists for evaluation of chest pain. Patient has had a history of ACS. Patient had a catheter a year ago. Patient's history is concerning for ACS. Patient was started on heparin drip. Patient's troponin is negative with no ischemic EKG changes. Patient's clinical exam is not consistent with a pulmonary embolism given the patient's history and physical exam. Will be admitted to hospital service for further cardiac evaluation with stress test. Patient is agreeable with plan of care. Patient's pain is not ripping or tearing and is not consistent with aortic dissections. - Medical Records Medical records reviewed: Yes I reviewed the patient's medical records. 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 Aggressive risk factor modification. Patient being referred for cardiac rehab. - Lab Data Result diagrams: 09/02/17 09:22 09/02/17 09:22 Lab Results 09/02/17 09/02/17 09/02/17 Range/Units 09:22 09:22 09:22 WBC 6.0 (4.3-11.1) K/mcL RBC 4.07 L (4.19-5.50) M/mcL Hgb 13.5 (12.9-16.9) g/dL Hct 39.7 (37.5-50.1) % MCV 97.5 (83.0-100.0) fL MCH 33.2 (28.0-33.3) pg MCHC 34.0 (31.6-35.5) g/dL RDW 13.9 (11.5-14.5) % Plt Count 141 (140-400) K/mcL MPV 11.0 (9.4-12.4) fL Immature Gran % 1.0 (0-4) % Seg Neutrophils % 58.0 % Lymphocytes % 25.6 % Monocytes % 13.6 % Eosinophils % 1.3 % Basophils % 0.5 % Neutrophils # 3.5 (1.6-8.9) K/mcL Lymphocytes # 1.5 (0.6-4.6) K/mcL Monocytes # 0.8 (0.0-1.3) K/mcL Eosinophils # 0.1 (0.0-0.6) K/mcL Basophils # 0.0 (0.0-0.2) K/mcL PT 11.3 (9.4-12.1) Seconds INR 1.1 Sodium (136-145) mEq/L Potassium (3.5-5.1) mEq/L Chloride (98-107) mEq/L Carbon Dioxide (23-29) mEq/L BUN (8-23) mg/dL Creatinine (0.70-1.30) mg/dL Est GFR ( Amer) (> 60) Est GFR (Non-Af Amer) (> 60) BUN/Creatinine Ratio (6-26) Glucose (70-105) mg/dL Calculated Osmolality (280-300) Calcium (8.6-10.3) mg/dL Total Bilirubin (0.3-1.0) mg/dL AST (13-39) Units/L ALT (7-52) Units/L Alkaline Phosphatase (34-104) Units/L Troponin I (< 0.04) ng/mL B-Natriuretic Peptide 40 (Less than 100) pg/mL Serum Total Protein (6.4-8.9) g/dL Albumin (3.5-5.7) g/dL Globulin (2.4-3.5) g/dL Albumin/Globulin Ratio (1.1-2.2) 09/02/17 Range/Units 09:22 WBC (4.3-11.1) K/mcL RBC (4.19-5.50) M/mcL Hgb (12.9-16.9) g/dL Hct (37.5-50.1) % MCV (83.0-100.0) fL MCH (28.0-33.3) pg MCHC (31.6-35.5) g/dL RDW (11.5-14.5) % Plt Count (140-400) K/mcL MPV (9.4-12.4) fL Immature Gran % (0-4) % Seg Neutrophils % % Lymphocytes % % Monocytes % % Eosinophils % % Basophils % % Neutrophils # (1.6-8.9) K/mcL Lymphocytes # (0.6-4.6) K/mcL Monocytes # (0.0-1.3) K/mcL Eosinophils # (0.0-0.6) K/mcL Basophils # (0.0-0.2) K/mcL PT (9.4-12.1) Seconds INR Sodium 136 (136-145) mEq/L Potassium 3.7 (3.5-5.1) mEq/L Chloride 102 (98-107) mEq/L Carbon Dioxide 27 (23-29) mEq/L BUN 13 (8-23) mg/dL Creatinine 0.98 (0.70-1.30) mg/dL Est GFR ( Amer) > 60 (> 60) Est GFR (Non-Af Amer) > 60 (> 60) BUN/Creatinine Ratio 13 (6-26) Glucose 154 H (70-105) mg/dL Calculated Osmolality 285 (280-300) Calcium 9.3 (8.6-10.3) mg/dL Total Bilirubin 0.5 (0.3-1.0) mg/dL AST 18 (13-39) Units/L ALT 22 (7-52) Units/L Alkaline Phosphatase 85 (34-104) Units/L Troponin I < 0.03 (< 0.04) ng/mL B-Natriuretic Peptide (Less than 100) pg/mL Serum Total Protein 7.0 (6.4-8.9) g/dL Albumin 4.3 (3.5-5.7) g/dL Globulin 2.7 (2.4-3.5) g/dL Albumin/Globulin Ratio 1.6 (1.1-2.2) - Radiology Data Radiology results reviewed: Yes I reviewed the patient's radiology results. Chest X-Ray 09/02/17 00:00 IMPRESSION: No acute process. Stable cardiomegaly D/ / Aris Payne MD / Aris Payne MD Interpreting Provider: Aris Payne MD - EKG Data EKG #1 EKG attestation: Yes I reviewed and interpreted this EKG. EKG shows normal: sinus rhythm Rate: normal Rhythm: NSR Hudson/QRS: normal Q waves: III T wave inversions noted in: v1 Interpretation: no acute changes, nonspecific ST-T wave changes S.B.AJarvis - Molina.B.AJarvis Situation: Demographics Background: Presenting Complaint Assessment: Vital Signs, Course and respsone to treatment, Patient/Family Expectation Recommendation: Barrier(s) to disposition, Recommendation based on pending studies, treatments, or consults S.B.A.RMaddie Report Given to: Dr. Sandip Perry Repor Time: 10:16
[2017-09-02] MEDS ORDERED: Nitroglycerin 0.4 MG TAB.SUBL SL ONE (09:27)
[2017-09-02] MEDS: Nitroglycerin 0.4 MG TAB.SUBL SL PRN ×2 (09:29→09:35)
[2017-09-02 09:34] LABS: Basophils % 0.5 %; Eosinophils # 0.1 K/mcL (0.0-0.6); Eosinophils % 1.3 %; Hematocrit 39.7 % (37.5-50.1); Hemoglobin 13.5 g/dL (12.9-16.9); Lymphocytes # 1.5 K/mcL (0.6-4.6); Lymphocytes % 25.6 %; Mean Corpuscular Hemoglobin 33.2 pg (28.0-33.3); Mean Corpuscular Volume 97.5 fL (83.0-100.0); Monocytes # 0.8 K/mcL (0.0-1.3); Monocytes % 13.6 %; Neutrophils # 3.5 K/mcL (1.6-8.9); Platelet Count 141 K/mcL (140-400); Red Blood Count 4.07 M/mcL (4.19-5.50); Red Cell Distribution Width 13.9 % (11.5-14.5)
[2017-09-02] MEDS ORDERED: 0.9 % Sodium Chloride 1,000 ML IVC ONE (09:38)
[2017-09-02 09:43] LABS: INR 1.1; Prothrombin Time 11.3 Seconds (9.4-12.1)
[2017-09-02 09:51] LABS: Troponin I < 0.03 ng/mL (< 0.04)
[2017-09-02 09:55] LABS: Alanine Aminotransferase 22 Units/L (7-52); Albumin 4.3 g/dL (3.5-5.7); Albumin/Globulin Ratio 1.6 (1.1-2.2); Alkaline Phosphatase 85 Units/L (34-104); Aspartate Amino Transferase 18 Units/L (13-39); BUN/Creatinine Ratio 13 (6-26); Bilirubin,Total 0.5 mg/dL (0.3-1.0); Blood Urea Nitrogen 13 mg/dL (8-23); Calcium 9.3 mg/dL (8.6-10.3); Carbon Dioxide 27 mEq/L (23-29); Chloride 102 mEq/L (98-107); Globulin 2.7 g/dL (2.4-3.5); Glucose 154 mg/dL (70-105); Osmolality,Calculated 285 (280-300); Potassium 3.7 mEq/L (3.5-5.1); Sodium 136 mEq/L (136-145); eGFR For African Americans > 60 (> 60); eGFR For Non-African Americans > 60 (> 60)
[2017-09-02] MEDS: Nitroglycerin 25 MG/250 ML INFUS..BTL IVC SCH (10:11)
[2017-09-02] MEDS ORDERED: 0.9 % Sodium Chloride 500 ML IVC ONE (12:05)
[2017-09-02] MEDS ORDERED: 0.9 % Sodium Chloride 500 ML ONE (12:11)
[2017-09-02] MEDS ORDERED: *HR* FentaNYL (PF) 100 MCG/2 ML VIAL IVP ONE (12:37)
--- NOTE | 2017-09-02 13:08 | Internal Med History&Physical ---
Date of Encounter: 09/02/17 Time of Encounter: 13:07 Internal Medicine - H&P: HPI Admitted From: Home Plans for Post Hospital Care: Home History of present illness: Mr. Ruiz is a 62 year old male with a complicated cardiac history with 3 cardial infarction last in 2010, status post 5 stent of ACS and stents in the past on Plavix and aspirin presents for evaluation of persistent left-sided chest pain 7-8 x 10, radiates to left arm associated with dizziness started yesterday afternoon while walking at home. Chest pain did not get relieved with rest and his regular medications and in fact got worse therefore he decided to come to emergency room this morning. His son brought him to the ER. Patient has seen his cream gatherer 3 weeks ago and cardiologists is aware about his intermittent sided chest pain. Generally pain goes away by rest or medication but this time it did not therefore patient got concerned and decided to come to the hospital. In ER initial troponin negative with no acute finding in the EKG compared with the last EKG. For baby aspirin, nitroglycerin lingual was given that Keeley persistent pain therefore nitro drip was restarted. ER physician also consulted cream gatherer about anticoagulation initiation but he did not recommend as there is no EKG changes or troponin elevation. During my interview patient is feeling comfortable and chest pain 1/10 and tapering down the nitro drip. Patient denies fever, chills, nausea, vomiting, diaphoresis, shortness of breath , abdominal pain, urinary complaints, diarrhea or constipation. Past Med Surg Social Fam HX - Past Medical History Medical history: arthritis, CHF, COPD, coronary artery disease, diabetes, hyperlipidemia, hypertension, myocardial infarction, other Psychiatric history: no psych history - Past Surgical History Surgical History: angioplasty/stent, prostatectomy, other - Social History Smoking Status: Former smoker Smokeless Tobacco Status: No Alcohol use: none Drug use: none - Family History Father Adopted: No Family Member Ethnicity: Non- Living Status: Still Living Hx Family Cardiac Disorders: Yes Hx Family Respiratory Disorders: Yes (copd / asbestosis) Hx Family Cancer: No Hx Family GI Disorders: No Hx Family Endocrine Disorder: Yes Hx Family Neuromuscular Disorders: No Hx Family Neurologic Disorders: No Hx Family HEENT Disorders: No Hx Family Autoimmune Disorders: No Mother Living Status: Internal Medicine - H&P: Meds Aspirin Enteric Coated [Aspirin EC] 81 mg PO DAILY 05/03/15 [History] Clopidogrel [Plavix] 75 mg PO DAILY 05/03/15 [History] Ezetimibe [Zetia] 10 mg PO DAILY 05/03/15 [History] Metformin [Glucophage] 500 mg PO 0800 05/03/15 [History] Sertraline [Zoloft] 100 mg PO DAILY tablet 08/30/15 [Rx] Atorvastatin Calcium [Lipitor] 80 mg PO HS 06/10/16 [History] Furosemide [Lasix] 40 mg PO BID 06/10/16 [History] Carvedilol [Coreg] 37.5 mg PO BID 08/15/16 [History] Diltiazem CD (24hr) [Cardizem CD] 120 mg PO DAILY 08/15/16 [History] Gabapentin [Neurontin] 600 mg PO TID 09/02/17 [History] Isosorbide MONOnitrate (24 HR) [Imdur] 30 mg PO DAILY 09/02/17 [History] Losartan [Cozaar] 25 mg PO DAILY 09/02/17 [History] Nitroglycerin [Nitrostat] 0.4 mg SL Q5M PRN 09/02/17 [History] 3 Allergy/AdvReac Type Severity Reaction Status Date / Time Penicillins Allergy Hives Verified 10/15/16 09:08 hydrocodone AdvReac Itching Verified 10/15/16 09:08 Oxycodone AdvReac Itching Verified 10/15/16 09:08 All Systems PM: as documented above in the HPI. - Constitutional Vitals: Temp Pulse Resp BP Pulse Ox 97.8 F 60 16 131/76 94 09/02/17 09:14 09/02/17 12:59 09/02/17 12:59 09/02/17 12:59 09/02/17 12:59 Exam: General appearance: No acute distress, A&O X 3, obese Head exam: Atraumatic Eye exam: EOMI, PERRLA ENT exam: Moist oral mucosa Neck nontender, supple Respiratory exam: Clear to auscultation bilaterally Cardiovascular exam: Regular rate and rhythm, no systolic murmur Abdominal exam: Soft, nontender, nondistended, positive bowel sounds Extremities exam: No calf tenderness, no pedal edema Present: Skin-no rash, warm, dry, intact Neurological exam: Alert, awake, oriented 3, CN II-XII intact, no focal deficits. No facial droop. Normal speech. Internal Med - H&P Results - Labs CBC & Chem 7: 09/02/17 09:22 09/02/17 09:22 - Assessment and plan (1) Unstable angina Current Visit: No Status: Acute Assessment and plan: History of complicated CAD. Status post 5 stent. Under care of his regular cream gatherer. Last catheterization done 1-1/2 year ago. No recent cardiac workup. Nitro drip was restarted in the ER for persistent pain in his started to wean down and patient felt relieved. Investigator consulted by ER physician. Further cardiac workup as per cream gatherer advice that includes echocardiogram and a stress test. Serial cardiac enzyme monitoring. Continue home medication. (2) Diabetes mellitus Current Visit: No Status: Chronic Assessment and plan: Stable. Will hold metformin and his start SSI low scale, acute check. 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 Close monitoring. Qualifiers: Hypertension type: essential hypertension Qualified Code(s): I10 - Essential (primary) hypertension (4) DVT prophylaxis Current Visit: No Status: Acute Assessment and plan: SCDs. Lovenox subcutaneous - Time Spent With Patient Total time spent is greater than 50% in coordination of care (as documented) at patient's floor/unit and/or counseling patient:
[2017-09-02] MEDS ORDERED: Naloxone 0.4 MG/ML INJ IVP PRN (13:16)
[2017-09-02] MEDS ORDERED: Nitroglycerin 0.4 MG TAB.SUBL SL PRN (13:19)
[2017-09-02] MEDS ORDERED: Dextrose Gel 15 GM/37.5 ML TUBE PO PRN ×2 (13:28)
[2017-09-02] MEDS ORDERED: *HR* Dextrose 50 % in Water (Syg) 50 ML SYRINGE IVP PRN (13:28)
[2017-09-02] MEDS ORDERED: D5% in Water 1,000 ML IVC PRN (13:28)
[2017-09-02] MEDS ORDERED: 0.9 % Sodium Chloride 1,000 ML ONE (13:43)
[2017-09-02] MEDS: Insulin LISPRO 300 UNITS/3 ML VIAL SQ SCH (16:31)
[2017-09-02] MEDS: Furosemide 40 MG TABLET PO SCH (16:34)
[2017-09-02] MEDS: Gabapentin 300 MG CAPSULE PO SCH ×2 (16:34→22:07)
[2017-09-03] MEDS: *HR* Morphine 2 MG/ML SYRINGE IVP PRN ×2 (01:07→05:41)
[2017-09-03] MEDS: Nitroglycerin 25 MG/250 ML INFUS..BTL IVC SCH (03:42)
[2017-09-03] MEDS: Gabapentin 300 MG CAPSULE PO SCH (07:37)
[2017-09-03] MEDS: Furosemide 40 MG TABLET PO SCH (07:37)
[2017-09-03] MEDS: Insulin LISPRO 300 UNITS/3 ML VIAL SQ SCH ×2 (07:38→11:40)
[2017-09-03] MEDS ORDERED: (Ezetimibe [Zetia] 10 MG) PO SCH (09:00)
[2017-09-03] MEDS ORDERED: Diltiazem CD (24hr) 120 MG CAPSULE PO SCH (09:00)
[2017-09-03] MEDS ORDERED: Isosorbide MONOnitrate (24 HR) 30 MG TAB.ER.24H PO SCH (09:00)
[2017-09-03] MEDS ORDERED: Aspirin Enteric Coated 81 MG Tablet PO SCH (09:00)
--- NOTE | 2017-09-03 10:00 | Cardiology Consult Note ---
Date of Encounter: 09/03/17 Time of Encounter: 09:47 Assessment and Plan (1) Chest pain Current Visit: Yes Status: Acute Chest pain is atypical. There is some reproducible chest wall pain. Reports there are some similar features to previous MA. troponin negative x3. EKG shows SR with no acute ST changes. On high dose NTG gtt with no relief of constant pain. Last LHC 05/2016- 40% stenosis mLAD, 60% stenosis dLAD, 50% stenosis mLcx artery , 99% stenosis OM 1, 50% stenosis in the ramus, 50% stenosis dRCA. Unchanged from previous LHC. TTE 09/2016- EF 60-65%. No significant valvular disease. Wean off NTG gtt. I discussed stress test vs C in the setting of known CAD. Continue asa, statin,plavix, and bb. Continue imdur. Qualifiers: Chest pain type: unspecified Qualified Code(s): R07.9 - Chest pain, unspecified (2) CAD (coronary artery disease) Current Visit: No Status: Chronic H/o of MA and multiple PCI. Last PCI in 2005. LHC in May 2016 showed stable CAD. Continue medical management as stated above. Qualifiers: Coronary Disease-Associated Artery/Lesion type: [place] artery [place] vs. transplanted heart: [place] heart Associated angina: with unstable angina Qualified Code(s): I25.110 - Atherosclerotic heart disease of [place] coronary artery with unstable angina pectoris Discussion w patient/family: The assessment and plan as outlined above was discussed with the patient and/or family members who expressed understanding and agreement. All questions were answered. Thank you for involving us in the care of your patient. Please call with any questions. History of Present Illness Consult date: 09/03/17 Requesting physician: Ange Pérez Consult reason: Chest pain Chief complaint: chest, shoulder, arm, and left facial pain. History of present illness: Mr. Ruiz is a 62 year old male with past medical history of three previous MA , multiple PCI, HTN, previous tobacco abuse, and previous rib fracture with hemothorax resulting in chronic pain. He presents with the c/o chest pain. Reports the onset of left facial pain that started radiating to his neck shoulder and arm starting one month ago. His pain was what he experienced with shingles previously. he followed with his PCP and was given treatment for shingles. His pain did not improve and is now radiating into his chest. The pain is constant and is not improving despite nitro glycerine spray and NTG gtt. His pain mildly improved with morphine. He reports the chronic pain in his left rib cage area is currently under control after recent injections from pain management. Cardiology consulted for concern for unstable angina. Past Med Surg Social Fam HX - Past Medical History Attestation: Yes The following information was validated with the patient. Medical history: arthritis, CHF, COPD, coronary artery disease, diabetes, hyperlipidemia, hypertension, myocardial infarction, other Psychiatric history: no psych history - Past Surgical History Surgical History: angioplasty/stent, prostatectomy, other - Social History Smoking Status: Former smoker Smokeless Tobacco Status: No Alcohol use: none Drug use: none - Family History Father Adopted: No Family Member Ethnicity: Non- Living Status: Still Living Hx Family Cardiac Disorders: Yes Hx Family Respiratory Disorders: Yes (copd / asbestosis) Hx Family Cancer: No Hx Family GI Disorders: No Hx Family Endocrine Disorder: Yes Hx Family Neuromuscular Disorders: No Hx Family Neurologic Disorders: No Hx Family HEENT Disorders: No Hx Family Autoimmune Disorders: No Mother Living Status: Medications and Allergies Aspirin Enteric Coated [Aspirin EC] 81 mg PO DAILY 05/03/15 [History] Clopidogrel [Plavix] 75 mg PO DAILY 05/03/15 [History] Ezetimibe [Zetia] 10 mg PO DAILY 05/03/15 [History] Metformin [Glucophage] 500 mg PO 0800 05/03/15 [History] Sertraline [Zoloft] 100 mg PO DAILY tablet 08/30/15 [Rx] Atorvastatin Calcium [Lipitor] 80 mg PO HS 06/10/16 [History] Furosemide [Lasix] 40 mg PO BID 06/10/16 [History] Carvedilol [Coreg] 37.5 mg PO BID 08/15/16 [History] Diltiazem CD (24hr) [Cardizem CD] 120 mg PO DAILY 08/15/16 [History] Gabapentin [Neurontin] 600 mg PO TID 09/02/17 [History] Isosorbide MONOnitrate (24 HR) [Imdur] 30 mg PO DAILY 09/02/17 [History] Losartan [Cozaar] 25 mg PO DAILY 09/02/17 [History] Nitroglycerin [Nitrostat] 0.4 mg SL Q5M PRN 09/02/17 [History] 3 Allergy/AdvReac Type Severity Reaction Status Date / Time Penicillins Allergy Hives Verified 10/15/16 09:08 hydrocodone AdvReac Itching Verified 10/15/16 09:08 Oxycodone AdvReac Itching Verified 10/15/16 09:08 All Systems Review: The remainder of the systems were reviewed and are negative Physical Examination Vital Signs, Last 4 Hours Temp Pulse Resp BP Pulse Ox 09/03/17 06:39 97.9 F 67 17 114/69 90 General: Conversant, No Apparent Distress HEENT: Atraumatic, Normocephaly, Mucus Membranes Moist Neck: No JVD, Normal carotid pulses Cardiac: Reg Rate and Rhythm, Normal S1 and S2, No Murmur Lungs: Normal Breath Sounds, No Wheeze, Rales, Rhonchi Neuro: Alert and responsive, No focal deficits noted Abdomen: Soft, Non-Tender Skin: No rashes noted on visualized skin Musculoskeletal: Other (Chest wall pain reproducible on my exam.) Extremities: No Clubbing, No Cyanosis, No Edema, Normal Pulses Results 09/02/17 09:22 09/02/17 09:22 Lab Results 09/02/17 09/02/17 17:48 23:06 Troponin I < 0.03 < 0.03 - Imaging and Cardiology Echo: pending - EKG Interpretation EKG results cardiology: personally reviewed Consult Discharge Plan - Plan
[2017-09-03 11:12] VITALS: BP 124/74
--- NOTE | 2017-09-03 11:36 | Internal Med Progress Note ---
Date of Encounter: 09/03/17 Time of Encounter: 11:34 - Assessment and plan (1) Cough with hemoptysis Current Visit: Yes Status: Acute Assessment and plan: The patient says he had bloody nose earlier in the morning and later coughed up some blood. I saw a tissue with a scant amount of blood. The patient is on aspirin and Plavix but he was not on heparin. Given his symptoms I will check a D dimers for now. If that comes back elevated we will order a CTA of chest and rule out a PE. The patient is not hypoxic or tachycardic. (2) Unstable angina Current Visit: No Status: Acute Assessment and plan: History of complicated CAD. Status post 5 stent. Cardiology is following here. Chest pain still persist but better. Cardiology took him off nitroglycerin for now. We will use sublingual nitroglycerin. Tylenol. Continue aspirin, statin, Plavix, beta alejandra. Cardiology is talking about stress test versus left heart catheterization. (3) Hypertension Current Visit: No Status: Chronic Assessment and plan: Continue home medicine. Qualifiers: Hypertension type: essential hypertension Qualified Code(s): I10 - Essential (primary) hypertension (4) Diabetes mellitus Current Visit: No Status: Chronic Assessment and plan: Continue insulin sliding scale. Continue Accu-Cheks. Qualifiers: Diabetes mellitus type: type 2 Diabetes mellitus retirement insulin use: with retirement use Diabetes mellitus complication status: without complication Qualified Code(s): E11.9 - Type 2 diabetes mellitus without complications; Z79.4 - rodent exterminator (current) use of insulin; Z79.4 - rodent exterminator ( current) use of insulin; Z79.4 - rodent exterminator (current) use of insulin; Z79.4 - skilled nursing (current) use of insulin (5) DVT prophylaxis Current Visit: No Status: Acute Assessment and plan: Given the bloody sputum, will use SCDs for now. - Time Spent With Patient Total time spent is greater than 50% in coordination of care (as documented) at patient's floor/unit and/or counseling patient: - Subjective Interval history: Patient was seen and examined. Admitted with chest pain with a history of significant heart disease status post 5 stents. This morning he still complains of chest discomfort with radiation to the shoulders. He coughed up small amount of bloody tinged sputum. He is not hypoxic. - Constitutional Vitals: Temp Pulse Resp BP Pulse Ox 98.1 F 67 16 124/74 94 09/03/17 11:08 09/03/17 11:08 09/03/17 11:08 09/03/17 11:08 09/03/17 11:08 Exam: GEN: NAD CVS: RRR. S1, S2, No m/r/g RESP: CTAB ABD: Soft, NT, ND, +BS EXT: No edema. 2+ DP. No rashes NEURO: Nonfocal Internal Medicine: Result - Labs CBC & Chem 7: 09/02/17 09:22 09/02/17 09:22 Labs: Cardiac Enzymes 09/02/17 09/02/17 Range/Units 17:48 23:06 Troponin I < 0.03 < 0.03 (< 0.04) ng/mL - ABG Interpretation ABG results: PT/INR, D-dimer PT 11.3 Seconds (9.4-12.1) 09/02/17 09:22 Consult Discharge Plan - Plan Referrals: Omid Rainey MD [Primary Care Provider] -
--- NOTE | 2017-09-03 14:58 | Discharge Summary ---
- NOTES TO OUTPATIENT PROVIDER Notes to Outpatient Provider: Patient has asked me to increase his neurontin. I told him to follow with the PCP and see if he can be increased or another agent can be added. He is already on high doses Orders not resulted at time of discharge: Pending orders 09/04/17 04:00 BMP [Basic Metabolic Panel] AM 0400 Complete Blood Count [HEME] AM 0400 Magnesium AM 0400 Date of Encounter: 09/03/17 Time of Encounter: 14:56 - Discharge Diagnosis (1) Cough with hemoptysis Priority: Primary Status: Acute (2) Unstable angina Priority: Primary Status: Acute (3) Hypertension Priority: Secondary Status: Chronic Qualifiers: Hypertension type: essential hypertension Qualified Code(s): I10 - Essential (primary) hypertension (4) Diabetes mellitus Priority: Secondary Status: Chronic Qualifiers: Diabetes mellitus type: type 2 Diabetes mellitus residential insulin 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 Ruiz is a 62 year old male with a complicated cardiac history with 3 myocardial infarctions with last last in 2010, status post 5 stent of ACS and stents in the past on Plavix and aspirin presented for evaluation of persistent left-sided chest pain 7-8 x 10, radiates to left arm associated with dizziness started yesterday afternoon while walking at home. Chest pain did not get relieved with rest and his regular medications and in fact got worse therefore he decided to come to emergency room this morning. His son brought him to the ER. Patient was seen by his inspector balance bridge 3 weeks ago and cardiologists is aware about his intermittent sided chest pain. He is being treated for shingles. Cardiology saw the patient and recommended follow-up with cardiology in 2 weeks. They wanted to get a stress test but the patient declined. EKG with no ST or T-wave changes. Troponins not elevated 3. Patient was able to nap is stable and okay for discharge per cardiology on 09/03. The patient was put on a nitroglycerin drip initially which was not helping his pain and was taken off it. We believe part of his pain is probably from shingles. We recommend continuing with Neurontin which she was on. This can be increased by his primary care physician. - Time Spent with Patient Total time spent providing and/or coordinating discharge services: Greater than 30 minutes - Discharge Medications Home Medications: Aspirin Enteric Coated [Aspirin EC] 81 mg PO DAILY 05/03/15 [History] Clopidogrel [Plavix] 75 mg PO DAILY 05/03/15 [History] Ezetimibe [Zetia] 10 mg PO DAILY 05/03/15 [History] Metformin [Glucophage] 500 mg PO 0800 05/03/15 [History] Sertraline [Zoloft] 100 mg PO DAILY tablet 08/30/15 [Rx] Atorvastatin Calcium [Lipitor] 80 mg PO HS 06/10/16 [History] Furosemide [Lasix] 40 mg PO BID 06/10/16 [History] Carvedilol [Coreg] 37.5 mg PO BID 08/15/16 [History] Diltiazem CD (24hr) [Cardizem CD] 120 mg PO DAILY 08/15/16 [History] Gabapentin [Neurontin] 600 mg PO TID 09/02/17 [History] Isosorbide MONOnitrate (24 HR) [Imdur] 30 mg PO DAILY 09/02/17 [History] Losartan [Cozaar] 25 mg PO DAILY 09/02/17 [History] Nitroglycerin [Nitrostat] 0.4 mg SL Q5M PRN 09/02/17 [History] Allergies/Adverse Reactions: 3 Allergy/AdvReac Type Severity Reaction Status Date / Time Penicillins Allergy Hives Verified 10/15/16 09:08 hydrocodone AdvReac Itching Verified 10/15/16 09:08 Oxycodone AdvReac Itching Verified 10/15/16 09:08 Date of admission: 09/02/17 11:34 Primary care physician: Omid Rainey MD Consults: 09/02/17 11:50 Consult to Cardiology [CONS] Stat Comment: Consulting Provider: Cardiology Brandi Reason for Consult: Unstable angina Time Notified: 11:51 Call Completed: Yes - Constitutional Vitals: Temp Pulse Resp BP Pulse Ox 98.1 F 67 16 124/74 94 09/03/17 11:08 09/03/17 11:08 09/03/17 11:08 09/03/17 11:08 09/03/17 11:08 Exam: GEN: NAD CVS: RRR. S1, S2, No m/r/g RESP: CTAB ABD: Soft, NT, ND, +BS EXT: No edema. 2+ DP. No rashes NEURO: Nonfocal - Patient Status Disposition: Home, Self-Care Condition: Fair Overall status at discharge: patient is progressing back to baseline - Discharge Instructions Follow Up With: Omid Rainey MD [Primary Care Provider] - 09/07/17 9:45 am (Please follow up as schedule...) Forms: ED Satisfaction Letter - Diet and Activity Activity: increase activity as tolerated Diet: diabetic diet, low salt diet
--- NOTE | 2017-09-03 16:15 | Event Note ---
Date of Encounter: 09/03/17 Time of Encounter: 16:12 I have personally performed a face to face evaluation on this patient. I have reviewed and agree with the care plan. History and Exam by me shows: Unable to edit BIG MACHINE CONSULTANT's consultation. Please consider this my attestation. Impressions: Chest pain, somewhat atypical. [place] CAD, prior PCI in 2005. [facility] 2017 demonstrated stable, nonobstructive CAD. Moderate lesions noted. History of shingles, possible postherpetic neuralgia Recommendations: Presentation somewhat atypical. Chest pain somewhat reproducible and facial pain appears to correlate with possible neuralgia. Troponins negative. Presentation and findings discussed with patient. Moderate CAD noted on last [facility] in 2017. Consideration given to stress test, the patient would prefer to do it as an outpatient. All questions were answered. Recommend continue aspirin, Plavix, statin, beta alejandra, and Imdur therapy. Patient understands the risks of this decision, including worsening cardiac issues and . Thanks, Bob Rose DO, FACC
[2017-09-03] MEDS ORDERED: Insulin LISPRO 300 UNITS/3 ML VIAL SQ SCH (21:00)
--- NOTE | 2017-09-04 15:45 | Electrocardiograph Report ---
[place] [address] Test Date: 2017-09-02 Pat Name: Aris Ruiz Department: 102 Room: 2A22 Gender: M Manager Protein: Andra : 1955 Requested By: Viktor Swan Order Number: [id number] Reading MD: Bob Rose Measurements Intervals [place] Rate: 67 P: 40 WI: 195 QRS: -8 QRSD: 104 T: 30 QT: 384 QTc: 399 Interpretive Statements SINUS RHYTHM LOW QRS VOLTAGE IN PRECORDIAL LEADS Electronically Signed On 09-04-2017 15:43:15 EDT by Bob Rose
--- NOTE | 2017-09-04 15:51 | Electrocardiograph Report ---
[address] [address] Test Date: 2017-09-02 Pat Name: Aris Ruiz Department: 112 Room: 2A22 Gender: M Annual Greenhouse Manager: : 1955 Requested By: Mani Ramsey Order Number: [id number] Reading MD: Bob Rose Measurements Intervals [place] Rate: 65 P: 18 UT: 186 QRS: 60 QRSD: 105 T: 34 QT: 400 QTc: 411 Interpretive Statements SINUS RHYTHM LOW QRS VOLTAGE IN PRECORDIAL LEADS Electronically Signed On 09-04-2017 15:49:26 EDT by Bob Rose
== END 2017-09-03 15:55 | disposition home or self-care (01) ==
LOC: 2SOUTHHOLD 09:12 → EMEROO 09:12 → 2ANU 13:18 → UNDODISOB 13:40 → 2ANU 14:03
PROVIDERS: ADMIT General Practice; ATTEND Internal Medicine

== ENCOUNTER 2018-12-31 08:36 | Observation (INO) ==
[2018-12-31] MEDS ORDERED: Albuterol 2.5 MG/3 ML NEBULIZER IH ONE ×2 (08:51→09:30)
[2018-12-31] MEDS ORDERED: Clindamycin 900 MG/50 ML 900 MG/50 ML IV.SOLN IVPB ONE ×2 (08:51→09:00)
[2018-12-31] MEDS ORDERED: Ringers Solution, Lactated 1,000 ML IVC SCH (09:00)
[2018-12-31] MEDS ORDERED: *HR* Propofol 200 MG/20 ML VIAL IVP ONE (09:21)
[2018-12-31] MEDS ORDERED: *HR* Midazolam HCl 2 MG/2 ML VIAL ONE (09:21)
[2018-12-31] MEDS ORDERED: *HR* FentaNYL (PF) 100 MCG/2 ML VIAL ONE (09:21)
--- NOTE | 2018-12-31 09:21 | Anesthesia Evaluation PreOp ---
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 History: Other (chronic pain back, shoulder, legs, abdominal) Other Medical History: Diabetes Type II, GERD, Other (BMI 38) Anesthesia History: No Prior Anesthetic Complications, Past Anesthesia (ACDF, prostatectomy, CTR) Alcohol Use: none Drug use: none Medications and Allergies Aspirin Enteric Coated [Aspirin EC] 81 mg PO DAILY 05/03/15 [History] Ezetimibe [Zetia] 10 mg PO DAILY 05/03/15 [History] Atorvastatin Calcium [Lipitor] 80 mg PO HS 06/10/16 [History] Furosemide [Lasix] 40 mg PO BID 06/10/16 [History] Carvedilol [Coreg] 37.5 mg PO BID 08/15/16 [History] Isosorbide MONOnitrate (24 HR) [Imdur] 30 mg PO DAILY 09/02/17 [History] Nitroglycerin [Nitrostat] 0.4 mg SL Q5M PRN 09/02/17 [History] Clopidogrel [Plavix] 75 mg PO QPM 12/31/18 [History] Cyclobenzaprine [Flexeril] 20 mg PO HS 12/31/18 [History] Gabapentin 600 mg PO BID 12/31/18 [History] Losartan Potassium [Cozaar] 50 mg PO QAM 12/31/18 [History] Metformin HCl 1,000 mg PO QAM 12/31/18 [History] Sertraline [Zoloft] 150 mg PO QAM 12/31/18 [History] Sitagliptin Phosphate [Januvia] 50 mg PO QAM 12/31/18 [History] Umeclidinium [place] [Incruse Ellipta] 62.5 mcg IH QAM 12/31/18 [History] Allergy/AdvReac Type Severity Reaction Status Date / Time Penicillins Allergy Hives Verified 12/31/18 09:09 hydrocodone AdvReac Itching Verified 12/31/18 09:09 oxycodone [Oxycodone] AdvReac Itching Verified 12/31/18 09:09 - Meds/Allergy Pre-op Review Medications Reviewed: Yes Allergies Reviewed: Yes Beta Blockers on Current Med List: Yes (carvedilol ) If Beta Blockers taken, Date/Time (Last Dose taken): 2200 12/30/2018 Anesthesia Results - Labs Laboratory Tests 09/02/17 10/07/18 12/17/18 09:22 09:25 09:00 WBC 5.8 Hgb 12.8 L Hct 39.2 Plt Count 127 L Sodium 136 Potassium Chloride 102 Carbon Dioxide 27 BUN 11 Creatinine Est GFR (Non-Af Amer) Hemoglobin A1c 12/17/18 12/17/18 09:00 09:00 WBC Hgb Hct Plt Count Sodium Potassium 3.8 Chloride Carbon Dioxide BUN Creatinine 0.83 Est GFR (Non-Af Amer) > 60 Hemoglobin A1c 7.2 H - Imaging EKG: report reviewed Additional studies: 05/2016 LEFT HEART CATH Indications: Unstable Angina Impressions: There is moderate three vessel coronary artery disease with severe small vessel disease which is unchanged from previous [facility] The left ventricle is normal and has normal contractility EF 65% Recommendations: Optimal medical therapy of patient's disease. Aggressive risk factor modification. Patient being referred for cardiac rehab. LV Ventriculography Ejection Method: LV Gram Ejection Fraction: 65% Wall Motion: TENORIO Anterobasal Normal Anterolateral Normal Apical: Normal Inferoapical Normal Inferobasal Normal Coronary Dominance: right Lesion Findings/Interventions * Left Main Coronary Artery The LMCA is angiographically free of disease. * Left Anterior Descending There is a 40% stenosis in the Mid LAD. There is a 60% stenosis in the Distal LAD. * Circumflex The 1st Marginal is small in size. There is a 50% stenosis in the Mid Circumflex. There is a 99% stenosis in the 1st Marginal. * Ramus There is a 50% stenosis in the Ramus. * Right Coronary Artery There is a 50% stenosis in the Distal RCA. stress 10/2018 Impression: Perfusion imaging was negative for ischemia or infarct. There is a small sized fixed perfusion defect which is mild in intensity in the inferior segment, consistent with artifact. Pharmacologic ECG was negative for ischemia at the level of heart rate achieved. Gated EF = 57%. Anesthesia Exam Vital Signs/O2 Sat/Glucose, Most Recent Temp Pulse Resp BP Pulse Ox 98.0 F 83 18 145/82 95 12/31/18 09:12 12/31/18 09:12 12/31/18 09:12 12/31/18 09:12 12/31/18 09:12 Blood Glucose* 115 Weight: 125 kg NPO (# of Hours): > 8 hr Pain Scale: 5 Pain Scale Used: Numeric (1 - 10) - HEENT Pupil (Motor): Pupils equal Mallampati: III Denture Type: Upper: Complete, Lower: Complete Oral Opening: Greater than 3 - LEGAL CASHIER LOC: Oriented - Cardiac Rhythm: Regular Murmur: None - Pulmonary Breath Sounds: bilateral Clear Respiratory Effort: Symmetrical Anesthesia Assess/Plan ASA Score: 4 (CAD, BMI 38, COPD, COMFORT, DM) Level of consciousness: Cooperative, Oriented Anesthetic Plan: General Monitoring Plan: Standard Monitors Recovery Plan: PACU
[2018-12-31] MEDS ORDERED: *HR* Rocuronium Bromide 50 MG/5 ML VIAL ONE (09:25)
[2018-12-31] MEDS ORDERED: Ondansetron 4 MG/2 ML VIAL ONE (09:25)
[2018-12-31] MEDS ORDERED: Lidocaine -MPF 4% 5 ML AMPUL ONE (09:25)
[2018-12-31] MEDS ORDERED: Dexamethasone 4 MG/ML VIAL ONE (09:25)
[2018-12-31] MEDS ORDERED: Lidocaine -MPF 2% 2 ML VIAL ONE (09:25)
[2018-12-31] MEDS ORDERED: *HR* Succinylcholine 200 MG/10 ML VIAL IVP ONE (09:25)
[2018-12-31] MEDS ORDERED: Famotidine 20 MG/2 ML VIAL IVP ONE (09:29)
[2018-12-31] MEDS ORDERED: traMADol 50 MG TABLET PO ONE (09:29)
[2018-12-31] MEDS ORDERED: Gabapentin 300 MG CAPSULE PO ONE (09:29)
[2018-12-31] MEDS ORDERED: Acetaminophen IV 1,000 MG/100 ML INFUS..BTL IVPB ONE (09:29)
[2018-12-31] MEDS ORDERED: traMADol 50 MG TABLET PO PRN (09:30)
[2018-12-31] MEDS ORDERED: Ondansetron 4 MG/2 ML VIAL IVP ONE (09:30)
[2018-12-31] MEDS ORDERED: *HR* Labetalol 20 MG/4 ML SYRINGE IVP PRN (09:30)
[2018-12-31] MEDS ORDERED: *HR* Promethazine 25 MG/ML VIAL IVP PRN (09:30)
[2018-12-31] MEDS ORDERED: *HR* HYDROmorphone (PF) 1 MG/ML SYRINGE IVP PRN (09:30)
[2018-12-31] MEDS ORDERED: Ketorolac 30 MG/ML VIAL IVP ONE (09:30)
--- NOTE | 2018-12-31 10:09 | General Surg History&Physical ---
Date of Encounter: 12/31/18 Time of Encounter: 10:07 Assessment and Plan (1) Symptomatic cholelithiasis Current Visit: Yes Status: Acute Aris Ruiz has symtpomatic cholelithiasis. I did discuss with the patient the need for removal based upon his symptoms. I went over the details of the procedure, including potential complications (bile duct injury, bile leak) and expected outcomes. The patient expressed understanding and wished to proceed. He has already had cardiac evaluation. The assessment and plan as outlined above was discussed with the patient and/or family members who expressed understanding and agreement. All questions were answered. History of Present Illness Chief complaint: symptomatic cholelithiasis HPI: 63M PMh significant for Dm, CAD/SD s/p cardiac stenting, COPD, HTn who presents with 3 month history of post prandial abdominal pain. The pain is located along the right side (he points to his lower quadrant), but radiates to his back/right scapula. The patient states it is worse with eating fatty, greasey foods, rates an 8/10, and usually resolves on its own. The pain is also associated with nausea. He recently had a stress test in preparation for another exam, which was negative for any pathology. An US was obtained, which was reviewed and interpreted by me in combination with radiology reads, which confirmed the presence of gallstones and no active inflammation. No reports of any systemic symptoms like fevers, chills, chest pain, nor shortness of breath. Past Med Surg Social Fam HX - Past Medical History Medical history: arthritis, CHF, COPD, coronary artery disease, diabetes, hyperlipidemia, hypertension, myocardial infarction, other Additional medical history: SD x3 Psychiatric history: no psych history - Past Surgical History Surgical History: angioplasty/stent, prostatectomy, other Additional surgical history: x5 stents - Social History Smoking Status: Former smoker Smokeless Tobacco Status: No Alcohol use: none Drug use: none - Family History Father Adopted: No Family Member Ethnicity: Non- Living Status: Still Living Hx Family Cardiac Disorders: Yes Hx Family Respiratory Disorders: Yes (copd / asbestosis) Hx Family Cancer: No Hx Family GI Disorders: No Hx Family Endocrine Disorder: Yes Hx Family Neuromuscular Disorders: No Hx Family Neurologic Disorders: No Hx Family HEENT Disorders: No Hx Family Autoimmune Disorders: No Mother Living Status: Medications and Allergies Aspirin Enteric Coated [Aspirin EC] 81 mg PO DAILY 05/03/15 [History] Ezetimibe [Zetia] 10 mg PO QAM 05/03/15 [History] Atorvastatin Calcium [Lipitor] 80 mg PO HS 06/10/16 [History] Furosemide [Lasix] 40 mg PO QAM 06/10/16 [History] Carvedilol [Coreg] 50 mg PO BID 08/15/16 [History] Isosorbide MONOnitrate (24 HR) [Imdur] 30 mg PO QAM 09/02/17 [History] Nitroglycerin [Nitrostat] 0.4 mg SL Q5M PRN 09/02/17 [History] Clopidogrel [Plavix] 75 mg PO QPM 12/31/18 [History] Cyclobenzaprine [Flexeril] 20 mg PO HS 12/31/18 [History] Gabapentin 600 mg PO BID 12/31/18 [History] Losartan Potassium [Cozaar] 50 mg PO QAM 12/31/18 [History] Metformin HCl 1,000 mg PO QAM 12/31/18 [History] Sertraline [Zoloft] 150 mg PO QAM 12/31/18 [History] Sitagliptin Phosphate [Januvia] 50 mg PO QAM 12/31/18 [History] Umeclidinium [place] [Incruse Ellipta] 62.5 mcg IH QAM 12/31/18 [History] Allergy/AdvReac Type Severity Reaction Status Date / Time Penicillins Allergy Hives Verified 12/31/18 09:09 hydrocodone AdvReac Itching Verified 12/31/18 09:09 oxycodone [Oxycodone] AdvReac Itching Verified 12/31/18 09:09 Review of Systems All systems PM: 12 point ROS negative besides HPI findings General Surgery Exam Initial Vital Signs Temp Pulse Resp BP Pulse Ox 98.0 F 83 18 145/82 95 12/31/18 09:12 12/31/18 09:12 12/31/18 09:12 12/31/18 09:12 12/31/18 09:12 - General physical appearance no distress - Eyes other (no scleral icterus) - ENT normocephalic - Neck trachea midline, no lymphadectomy - Respiratory normal expansion, normal respiratory effort - Cardiovascular Cardiovascular exam: Present: RRR - Abdomen Abdomen general surgery: Present: soft, non tender - Integumentary Integumentary general surgery: Present: warm and dry, no abnormal pigmentation - Neurologic Present: CN 2-12 grossly intact - Musculoskeletal Present: normal posture - Psychiatric Psychiatric general surgery: Present: A&Ox3 Results - Labs All other labs normal. - Imaging US - abdomen: report reviewed, image reviewed
[2018-12-31] MEDS ORDERED: Isovue-300 50 ML VIAL ONE (10:19)
[2018-12-31] MEDS ORDERED: *HR* PHENYLEPHRINE 1,000 MCG/10 ML SYRINGE IVP ONE (11:04)
[2018-12-31] MEDS ORDERED: Neostigmine Methylsulfate 3 MG/3 ML SYRINGE ONE (13:12)
[2018-12-31] MEDS ORDERED: Ondansetron 4 MG/2 ML VIAL IVP PRN (13:44)
[2018-12-31] MEDS ORDERED: Acetaminophen 325 MG TABLET PO PRN (13:44)
[2018-12-31] MEDS ORDERED: Naloxone 0.4 MG/ML INJ IVP PRN (13:44)
[2018-12-31] MEDS ORDERED: Nitroglycerin 0.4 MG TAB.SUBL SL PRN (13:47)
--- NOTE | 2018-12-31 13:56 | Operative Note ---
Date of procedure: 12/31/18 Pre-op diagnosis: symptomatic cholelithiasis Post-op diagnosis: other (chronic cholecystitis) Procedure: laparoscopic cholecystectomy Implants: none Complications: none Anesthesia: GETA Local Anesthetics: 0.5% Sensorcaine HCL SubQ (cc) Surgeon: Regan Molina Was there an therapy administrative assistant present: Yes Maintenance Helper Utility Engineer: Anais Lynn Estimated blood loss (cc): 20 Specimen: gallbladder Condition: stable Disposition: PACU Procedure in Detail: The patient was brought into the operating room suite and was placed in the supine position. Mechanical DVT prophylaxis was applied. A time-in was conducted. The patient underwent smooth induction of anesthesia. Preoperative antibiotics were given. The patient was prepped and draped in the usual fashion . A time-out was held identifying the correct patient, pathology, and procedure. Everyone was in agreement and we began the procedure. Incision to Dissection I started by creating a 10mm supraumbilical incision. Via open Bladimir technique I did enter into the abdomen. Using a Vicryl on a UR-6 needle, I reapproximated, but did not close the fascia in a [id number] fashion. I inserted the 10mm, 30 degree camera, ensured that I did not cause intraabdominal injury upon entry, and quickly identified the gallbladder. It does possess a 'porfirio's egg blue' hue. I created a 5mm incision in the epigastric region followed by two more 5mm incision, one at the midclavicular line, the last at the anterior axillary line. Using laparoscopic graspers I managed to elevate the gallbladder above the liver. I grasp the edge of the gallbladder to retract laterally. Using the [place] instrument as well as the hook-electrocautery, I dissected out the cystic duct and the cystic artery. I did excise the cystic artery before continuing as it was obstructing my view of the anatomy. It should be stated that there was more inflammation than expected for an elective cholecystectomy. in the process of attempting to dissect out the critical view of safety I found that I was questioning whether or not I was performing a dissection of the common bile duct. I then stopped what I was doing, began my anatomical survey and found what i believed to be the neck of the gallbladder. It was decided at this time, due to the heavy inflammation and concern about accurate anatomy identification, that I decided to perform an intraoperative cholangiogram. I elected to create my incision along the infundibulum, inserted the catheter using the Spangler instrument and performed the cholangiogram. The contast, however, never went into the cystic duct. I then noted that there were lots of stone come from the incision site. I milked the gallbladder until i was certain it was empty and repeated the cholangiogram only to get the same results. I then made the decision to complete the procedure, however, I extended my incision on the infundibulum and elected to violate the gallbladder wall, enter the lumen and leave the backwall of the gallbladder. This left approximately 45% of the gallbladder, but it was more intrahepatic than previously appreciated. I then oversewed the remnant using the v-lock suture in a running fashion. I then decided to leave a drain within the liver bed; I suctioned the bile and removed the stones that were spilled when I violated the gallbladder wall, retrieved the specimen, de-sufllated, and ended the procedure. I then close the umbilical fascia using the vicryl suture from the start. All incisions were closed with interrupted 4-0 monocryl and sealed with dermabond. The patient tolerated the procedure well and went back to PACU in stable condition.
--- NOTE | 2018-12-31 14:26 | Anesthesia Evaluation Post Op ---
Date of Encounter: 12/31/18 Time of Encounter: 14:22 - Vital Signs Vital Signs: Vital Signs/O2 Sat, Most Current Temp Pulse Resp BP Pulse Ox 97.4 F L 82 14 154/92 93 12/31/18 13:59 12/31/18 14:09 12/31/18 14:09 12/31/18 14:09 12/31/18 14:09 - Lungs Lungs: Clear Ascult./Percussion - Airway Airway: Non-obstructed - Cardiovascular Regular Rate - Mental Status Mental Status: Alert & Oriented, Answers Appropriately - Pain Pain Scale: 0 Pain Scale used: Numeric (1 - 10) - Nausea Vomiting Nausea Vomiting: Not Present - Hydration Hydration: Ice chips, Has not voided - Discharge PostOp Status: Discharge Patient to home
[2018-12-31] MEDS: Ringers Solution, Lactated 1,000 ML IVC SCH (15:00)
[2018-12-31] MEDS ORDERED: *HR* HYDROmorphone (PF) 1 MG/ML SYRINGE IVP ONE (15:46)
[2018-12-31] MEDS: traMADol 50 MG TABLET PO PRN (20:17)
[2018-12-31] MEDS: Gabapentin 300 MG CAPSULE PO SCH (20:17)
[2019-01-01] MEDS: Ringers Solution, Lactated 1,000 ML IVC SCH ×2 (03:06→16:32)
[2019-01-01] MEDS: Gabapentin 300 MG CAPSULE PO SCH ×2 (08:45→20:35)
[2019-01-01] MEDS: Furosemide 40 MG TABLET PO SCH (08:45)
[2019-01-01] MEDS: *HR* SitaGLIPtin 25 MG TABLET PO SCH (08:46)
[2019-01-01] MEDS: Isosorbide MONOnitrate (24 HR) 30 MG TAB.ER.24H PO SCH (08:46)
[2019-01-01] MEDS ORDERED: NON-FORMULARY MEDICATION 1 EACH EACH (Ezetimibe [Zetia] 10 MG) PO SCH (09:00)
--- NOTE | 2019-01-01 09:51 | AcuteCareSurgery Progress Note ---
Date of Encounter: 01/01/19 Time of Encounter: 09:35 - Assessment and Plan (1) Cholelithiasis and cholecystitis without obstruction Current Visit: Yes Status: Acute The patient has persistent bilious drainage after cholecystectomy for acute cholecystitis with cholelithiasis. Continue antibiotic therapy and Barry- Davila drainage Qualifiers: Cholelithiasis location: gallbladder Cholecystitis acuity: acute and chronic Qualified Code(s): K80.12 - Calculus of gallbladder with acute and chronic cholecystitis without obstruction Subjective Narrative: The patient is seen and evaluated on morning rounds with the acute care surgery team. He has bilious drainage in his Barry-Davila drain. He had a complicated cholecystectomy with retained posterior gallbladder wall secondary to severe inflammation. Gallbladder neck was reported as oversewn. The patient has bilious drainage. We will start ciprofloxacin and Flagyl secondary to the severe inflammation of the gallbladder and continue close observation for bilious drainage and Barry-Davila Objective Vital Signs - Last 8 Hours Temp Pulse Resp BP Pulse Ox 01/01/19 06:58 97.3 F L 80 18 136/81 91 01/01/19 03:33 97.5 F L 81 15 129/75 90 Intake and Output 12/31/18 01/01/19 01/01/19 23:59 07:59 15:59 Intake Total 1000 / 1000 Output Total 430 / 520 950 / 950 Balance -430 / -520 50 / 50 Intake: IV Fluids 1000 / 1000 Lactated Ringers 1,000 ML @ 75 1000 / 1000 mls/hr IVC .[id number] [facility] Rx#: [id number] Oral 0 / 0 Output: Urine 250 / 250 950 / 950 Wound Drainage 180 / 180 Right Lower Abdomen 180 / 180 Other: Weight 121.5 kg Patient Weight 01/01/19 23:59 Weight 121.5 kg - General physical appearance well developed, well nourished, no distress, no pain - Respiratory normal expansion, normal respiratory effort, clear to auscultation - Cardiovascular Cardiovascular exam: Present: RRR, no murmurs/rubs/gallops - Abdomen Abdomen: Present: bowel sounds present, soft, tender (Incisional pain only) - Incision Incision: Present: clean and dry Consult Discharge Plan - Plan Referrals: Omid Rainey MD [Primary Care Provider] - Syl Forman CNP [Advanced Practice Nurse] - 01/28/19 8:15 am
[2019-01-01 11:00] LABS: Alanine Aminotransferase 42 Units/L (7-52); Albumin 4.2 g/dL (3.5-5.7); Albumin/Globulin Ratio 1.6 (1.1-2.2); Alkaline Phosphatase 59 Units/L (34-104); Aspartate Amino Transferase 44 Units/L (13-39); BUN/Creatinine Ratio 9 (6-26); Bilirubin,Total 0.4 mg/dL (0.3-1.0); Blood Urea Nitrogen 8 mg/dL (8-23); Calcium 8.9 mg/dL (8.6-10.3); Carbon Dioxide 28 mEq/L (23-29); Chloride 100 mEq/L (98-107); Globulin 2.6 g/dL (2.4-3.5); Glucose 160 mg/dL (70-105); Magnesium 1.5 mg/dL (1.6-2.6); Osmolality,Calculated 284 (280-300); Phosphorous 2.7 mg/dL (2.7-4.5); Potassium 3.9 mEq/L (3.5-5.1); Sodium 136 mEq/L (136-145); Total Protein 6.8 g/dL (6.4-8.9); eGFR For African Americans > 60 (> 60); eGFR For Non-African Americans > 60 (> 60)
[2019-01-01] MEDS: traMADol 50 MG TABLET PO PRN ×2 (11:31→20:35)
[2019-01-01] MEDS: MetroNIDAZOLE 500 MG/100 ML 500 MG/100 ML BAG IVPB SCH (16:32)
[2019-01-02] MEDS: MetroNIDAZOLE 500 MG/100 ML 500 MG/100 ML BAG IVPB SCH ×4 (00:15→23:24)
[2019-01-02] MEDS: traMADol 50 MG TABLET PO PRN ×2 (02:01→18:16)
[2019-01-02] MEDS: Ringers Solution, Lactated 1,000 ML IVC SCH (06:14)
--- NOTE | 2019-01-02 07:46 | AcuteCareSurgery Progress Note ---
Date of Encounter: 01/02/19 Time of Encounter: 07:25 - Assessment and Plan (1) Cholelithiasis and cholecystitis without obstruction Current Visit: Yes Status: Acute The patient has persistent bilious drainage after cholecystectomy for acute cholecystitis with cholelithiasis. Continue antibiotic therapy and Barry- Advila drainage The patient is seen and evaluated on morning rounds with the acute care surgery team 01/02/2019. He has much less pain today compared to yesterday. The bilious drainage that was present yesterday and the Barry-Davila has now essentially clear. There is some mild bilious staining of serosanguineous drainage. We will plan to continue IV antibiotics today. Overall, the patient is progressing well Qualifiers: Cholelithiasis location: gallbladder Cholecystitis acuity: acute and chronic Qualified Code(s): K80.12 - Calculus of gallbladder with acute and chronic cholecystitis without obstruction Subjective Narrative: The patient is seen and evaluated on morning rounds with the acute care surgery team. The patient states this pain is much improved. I was concerned there was bilious drainage and Barry-Davila yesterday, however, the drainage is beginning to clear, for serosanguineous. Does not appear to be viable. Laboratory testing for CBC and liver function test is pending at time. These will be reviewed later today. His pain is much improved. High-protein think he would b enefit from additional intravenous antibiotics and keep him in the hospital today. He is complaining of bloating. We will advance diet regular Objective Vital Signs - Last 8 Hours Temp Pulse Resp BP Pulse Ox 01/02/19 03:57 98.6 F 83 15 110/71 92 Intake and Output 01/01/19 01/01/19 01/02/19 15:59 23:59 07:59 Intake Total 800 / 3340 1540 / 3340 1160 / 1160 Output Total 1465 / 2825 410 / 2825 845 / 845 Balance -665 / 515 1130 / 515 315 / 315 Intake: IV Fluids 1300 / 2300 1100 / 1100 Lactated Ringers 1,000 ML @ 75 1000 / 2000 1000 / 1000 mls/hr IVC .[id number] [facility] Rx#: [id number] Cipro Premix 400 MG/200 ML 400 200 / 200 mg In 200 ml @ 200 mls/hr IVPB Q12HR [facility] Rx#:[id number] Flagyl Premix 500 MG/100 ML 500 100 / 100 100 / 100 mg In 100 ml @ 100 mls/hr IVPB Q8HR [facility] Rx#:[id number] Oral 800 / 1040 240 / 1040 60 / 60 Output: Urine 1440 / 2790 400 / 2790 800 / 800 Wound Drainage / 35 35 45 / 45 Right Lower Abdomen 45 / 45 Other: Meal Lunch Dinner Percent of Meal Consumed 25% 100% # Voids 1 # Bowel Movements 0 Weight 127 kg Patient Weight 01/02/19 23:59 Weight 127 kg - General physical appearance well developed, well nourished, no pain - Respiratory normal expansion, normal respiratory effort, clear to auscultation - Cardiovascular Cardiovascular exam: Present: RRR, no murmurs/rubs/gallops - Abdomen Abdomen: Present: bowel sounds present, soft, non tender (Barry-Davila drain with very slight bilious tinged serosanguineous) - Labs 01/01/19 09:45 Diabetes panel 01/01/19 Range/Units 09:45 Sodium 136 (136-145) mEq/L Potassium 3.9 (3.5-5.1) mEq/L Chloride 100 (98-107) mEq/L Carbon Dioxide 28 (23-29) mEq/L BUN 8 (8-23) mg/dL Creatinine 0.88 (0.70-1.30) mg/dL Glucose 160 H (70-105) mg/dL Calcium 8.9 (8.6-10.3) mg/dL AST 44 H (13-39) Units/L ALT 42 (7-52) Units/L Alkaline Phosphatase 59 (34-104) Units/L Albumin 4.2 (3.5-5.7) g/dL Calcium panel 01/01/19 Range/Units 09:45 Calcium 8.9 (8.6-10.3) mg/dL Phosphorus 2.7 (2.7-4.5) mg/dL Albumin 4.2 (3.5-5.7) g/dL Pituitary panel 01/01/19 Range/Units 09:45 Sodium 136 (136-145) mEq/L Potassium 3.9 (3.5-5.1) mEq/L Chloride 100 (98-107) mEq/L Carbon Dioxide 28 (23-29) mEq/L BUN 8 (8-23) mg/dL Creatinine 0.88 (0.70-1.30) mg/dL Glucose 160 H (70-105) mg/dL Calcium 8.9 (8.6-10.3) mg/dL Adrenal panel 01/01/19 Range/Units 09:45 Sodium 136 (136-145) mEq/L Potassium 3.9 (3.5-5.1) mEq/L Chloride 100 (98-107) mEq/L Carbon Dioxide 28 (23-29) mEq/L BUN 8 (8-23) mg/dL Creatinine 0.88 (0.70-1.30) mg/dL Glucose 160 H (70-105) mg/dL Calcium 8.9 (8.6-10.3) mg/dL Total Bilirubin 0.4 (0.3-1.0) mg/dL AST 44 H (13-39) Units/L ALT 42 (7-52) Units/L Alkaline Phosphatase 59 (34-104) Units/L Albumin 4.2 (3.5-5.7) g/dL Consult Discharge Plan - Plan Referrals: Omid Rainey MD [Primary Care Provider] - Syl Forman CNP [Advanced Practice Nurse] - 01/28/19 8:15 am
[2019-01-02] MEDS: Furosemide 40 MG TABLET PO SCH (08:59)
[2019-01-02] MEDS: Isosorbide MONOnitrate (24 HR) 30 MG TAB.ER.24H PO SCH (09:00)
[2019-01-02] MEDS: *HR* SitaGLIPtin 25 MG TABLET PO SCH (09:00)
[2019-01-02] MEDS: Gabapentin 300 MG CAPSULE PO SCH ×2 (09:00→20:19)
[2019-01-02 09:39] LABS: Hematocrit 36.2 % (37.5-50.1); Hemoglobin 11.9 g/dL (12.9-16.9); Mean Corpuscular HGB Conc 32.9 g/dL (31.6-35.5); Mean Corpuscular Hemoglobin 33.3 pg (28.0-33.3); Mean Corpuscular Volume 101.4 fL (83.0-100.0); Mean Platelet Volume 10.3 fL (9.4-12.4); Platelet Count 126 K/mcL (140-400); Red Blood Count 3.57 M/mcL (4.19-5.50); Red Cell Distribution Width 13.7 % (11.5-14.5); White Blood Count 7.7 K/mcL (4.3-11.1)
[2019-01-02 10:01] LABS: Alanine Aminotransferase 32 Units/L (7-52); Albumin 4.2 g/dL (3.5-5.7); Albumin/Globulin Ratio 1.8 (1.1-2.2); Alkaline Phosphatase 55 Units/L (34-104); Aspartate Amino Transferase 32 Units/L (13-39); BUN/Creatinine Ratio 10 (6-26); Bilirubin,Direct 0.1 mg/dL (0.0-0.2); Bilirubin,Indirect 0.3 mg/dL (0.0-1.2); Bilirubin,Total 0.4 mg/dL (0.3-1.0); Blood Urea Nitrogen 8 mg/dL (8-23); Calcium 8.4 mg/dL (8.6-10.3); Carbon Dioxide 29 mEq/L (23-29); Chloride 97 mEq/L (98-107); Globulin 2.4 g/dL (2.4-3.5); Glucose 120 mg/dL (70-105); Osmolality,Calculated 280 (280-300); Potassium 3.4 mEq/L (3.5-5.1); Sodium 135 mEq/L (136-145); Total Protein 6.6 g/dL (6.4-8.9); eGFR For African Americans > 60 (> 60); eGFR For Non-African Americans > 60 (> 60)
[2019-01-03] MEDS: Ringers Solution, Lactated 1,000 ML IVC SCH (02:27)
[2019-01-03 05:55] LABS: Hematocrit 35.2 % (37.5-50.1); Hemoglobin 11.6 g/dL (12.9-16.9); Mean Corpuscular Hemoglobin 33.2 pg (28.0-33.3); Mean Corpuscular Volume 100.9 fL (83.0-100.0); Mean Platelet Volume 10.7 fL (9.4-12.4); Platelet Count 114 K/mcL (140-400); Red Blood Count 3.49 M/mcL (4.19-5.50); Red Cell Distribution Width 13.5 % (11.5-14.5); White Blood Count 6.9 K/mcL (4.3-11.1)
[2019-01-03 06:15] LABS: Alanine Aminotransferase 23 Units/L (7-52); Albumin/Globulin Ratio 1.6 (1.1-2.2); Alkaline Phosphatase 51 Units/L (34-104); Aspartate Amino Transferase 23 Units/L (13-39); BUN/Creatinine Ratio 10 (6-26); Bilirubin,Direct 0.1 mg/dL (0.0-0.2); Bilirubin,Indirect 0.5 mg/dL (0.0-1.2); Bilirubin,Total 0.6 mg/dL (0.3-1.0); Blood Urea Nitrogen 8 mg/dL (8-23); Calcium 8.4 mg/dL (8.6-10.3); Carbon Dioxide 27 mEq/L (23-29); Chloride 96 mEq/L (98-107); Globulin 2.5 g/dL (2.4-3.5); Glucose 128 mg/dL (70-105); Osmolality,Calculated 280 (280-300); Potassium 3.1 mEq/L (3.5-5.1); Sodium 135 mEq/L (136-145); Total Protein 6.5 g/dL (6.4-8.9); eGFR For African Americans > 60 (> 60); eGFR For Non-African Americans > 60 (> 60)
[2019-01-03] MEDS ORDERED: *HR* HYDROcodone/Acet 5/325 mg TABLET PO PRN (08:43)
--- NOTE | 2019-01-03 08:56 | Discharge Summary ---
<Syl Forman - Last Filed: 01/03/19 08:54> Orders not resulted at time of discharge: Pending orders 12/31/18 13:08 Surgical Pathology [PTH] Routine Date of Encounter: 01/03/19 Time of Encounter: 09:04 - Discharge Diagnosis (1) Cholelithiasis and cholecystitis without obstruction Priority: Primary Status: Resolved Comments: Laparoscopic cholecystectomy with drain placement on 12/31/[address] Molina. He did have a postoperative bile leak is evident per the MICHELE drain. This has resolved. His drainage is now SS. He is ambulating avoiding without difficulty, tolerating a diet without nausea or vomiting, vital signs are stable, and he is afebrile. His son is in the room and states he will care for his drain at home. We will begin discharge planning to home with a follow-up in the office in approximately one week for a drain check. Of note the patient previously listed oxycodone and hydrocodone in his allergies. Upon further review with this CUSTOMER SUPPORT CONSULTANT, patient states he just "didn't like the way they made me feel so I listed them as an allergy." I did review with the patient that this is not a true allergy and that we would remove those from his allergy list. He was agreeable and stated understanding. He was on tramadol in the hospital for pain and said this was not sufficient. We did prescribed him Bradford as needed for home advised him to eat a small snack and take ondansetron prior to taking the hydrocodone. Qualifiers: Cholelithiasis location: gallbladder Cholecystitis acuity: acute and chronic Qualified Code(s): K80.12 - Calculus of gallbladder with acute and chronic cholecystitis without obstruction General Surgery Exam Initial Vital Signs Temp Pulse Resp BP Pulse Ox 98.0 F 83 18 145/82 95 12/31/18 09:12 12/31/18 09:12 12/31/18 09:12 12/31/18 09:12 12/31/18 09:12 Vital Signs Temp Pulse Resp BP Pulse Ox 01/03/19 07:46 98.1 F 81 17 108/68 93 01/03/19 04:42 98.6 F 83 14 101/69 94 01/02/19 19:32 98.4 F 95 16 101/60 91 01/02/19 16:11 98.7 F 73 16 97/73 92 01/02/19 11:45 98.6 F 81 17 104/63 90 Intake and Output 01/02/19 01/03/19 01/03/19 23:59 07:59 15:59 Intake Total 940 / 2860 1989 Output Total 30 / 1675 600 / 600 Balance 910 / 1185 1390 / 1390 Intake: IV Fluids 700 / 2200 1300 / 1300 Lactated Ringers 1,000 ML @ 75 400 / 1500 1000 / 1000 mls/hr IVC .[id number] EBER Rx#: [id number] Cipro Premix 400 MG/200 ML 400 200 / 400 200 / 200 mg In 200 ml @ 200 mls/hr IVPB Q12HR EBER Rx#:[id number] Flagyl Premix 500 MG/100 ML 500 100 / 300 100 / 100 mg In 100 ml @ 100 mls/hr IVPB Q8HR EBER Rx#:[id number] Oral 240 / 660 690 / 690 Output: Urine 600 / 600 Wound Drainage 30 / 75 Right Lower Abdomen 30 / 75 Other: Meal Dinner Percent of Meal Consumed 80% VITAL SIGNS: Reviewed. See [facility] GENERAL: In no apparent distress. HEENT: Normocephalic, atraumatic, O2 per nasal cannula noted. Patient with facial oliveros. oropharynx is pink and moist, there is no neck adenopathy or JVD noted. CHEST/RESPIRATORY: The thorax is free from signs of trauma. Lung sounds: clear to auscultation, normal respiratory effort CARDIAC: Regular rate and rhythm. Normal S1 and S2, without murmurs, gallops, or rubs. VASCULAR: No Edema. 2+ peripheral pulses. ABDOMEN: soft, expected postoperative tenderness, active bowel sounds INCISION: Surgical incision is clean, dry, and intact. There are no signs of cellulitis or infection noted. There is a small amount of postoperative seroma noted at the umbilicus WOUNDS/DRAINS: MICHELE site is unremarkable. There is SS drainage; no bile MUSCULOSKELETAL: Good range of motion of all major joints. Extremities without clubbing, cyanosis or edema. NEUROLOGIC EXAM: Alert and oriented x 3. Speech normal. Follows commands. PSYCHIATRIC: Mood normal. SKIN: No rash or lesions. - Hospital Course Hospital course: Mr. Ruiz is a 63 year old male - Time Spent with Patient Total time spent providing and/or coordinating discharge services: - Discharge Medications Prescriptions: New Ciprofloxacin [Cipro] 500 mg PO BID 4 Days #8 tablet Docusate Sodium [Colace] 100 mg PO BID PRN #30 capsule PRN Reason: Contstipation metroNIDAZOLE [Flagyl] 500 mg PO TID 4 Days #21 tablet Polyethylene Glycol 3350 [MiraLAX Powder Bulk 17.9 Oz] 1 scoop PO DAILY 30 Days #510 gm HYDROcodone/Acet 5/325 mg [Bradford 5-325 mg] 1 tab PO Q6H PRN 7 Days #28 tab PRN Reason: Pain Ondansetron ODT [Zofran ODT] 4 mg SL Q4HR PRN #15 tab.rapdis PRN Reason: Postsurgical nausea Continued Aspirin Enteric Coated [Aspirin EC] 81 mg PO DAILY Ezetimibe [Zetia] 10 mg PO QAM Atorvastatin Calcium [Lipitor] 80 mg PO HS Furosemide [Lasix] 40 mg PO QAM Carvedilol [Coreg] 50 mg PO BID Nitroglycerin [Nitrostat] 0.4 mg SL Q5M PRN PRN Reason: Chest Pain Isosorbide MONOnitrate (24 HR) [Imdur] 30 mg PO QAM Clopidogrel [Plavix] 75 mg PO QPM Cyclobenzaprine [Flexeril] 20 mg PO HS Gabapentin 600 mg PO BID Losartan Potassium [Cozaar] 50 mg PO QAM Metformin HCl 1,000 mg PO QAM Sitagliptin Phosphate [Januvia] 50 mg PO QAM Umeclidinium [place] [Incruse Ellipta] 62.5 mcg IH QAM Sertraline [Zoloft] 150 mg PO QAM Home Medications: Aspirin Enteric Coated [Aspirin EC] 81 mg PO DAILY 05/03/15 [History] Ezetimibe [Zetia] 10 mg PO QAM 05/03/15 [History] Atorvastatin Calcium [Lipitor] 80 mg PO HS 06/10/16 [History] Furosemide [Lasix] 40 mg PO QAM 06/10/16 [History] Carvedilol [Coreg] 50 mg PO BID 08/15/16 [History] Isosorbide MONOnitrate (24 HR) [Imdur] 30 mg PO QAM 09/02/17 [History] Nitroglycerin [Nitrostat] 0.4 mg SL Q5M PRN 09/02/17 [History] Clopidogrel [Plavix] 75 mg PO QPM 12/31/18 [History] Cyclobenzaprine [Flexeril] 20 mg PO HS 12/31/18 [History] Gabapentin 600 mg PO BID 12/31/18 [History] Losartan Potassium [Cozaar] 50 mg PO QAM 12/31/18 [History] Metformin HCl 1,000 mg PO QAM 12/31/18 [History] Sertraline [Zoloft] 150 mg PO QAM 12/31/18 [History] Sitagliptin Phosphate [Januvia] 50 mg PO QAM 12/31/18 [History] Umeclidinium [place] [Incruse Ellipta] 62.5 mcg IH QAM 12/31/18 [History] Ciprofloxacin [Cipro] 500 mg PO BID 4 Days #8 tablet 01/03/19 [Rx] Docusate Sodium [Colace] 100 mg PO BID PRN #30 capsule 01/03/19 [Rx] HYDROcodone/Acet 5/325 mg [Bradford 5-325 mg] 1 tab PO Q6H PRN 7 Days #28 tab 01/03/19 [Rx] Ondansetron ODT [Zofran ODT] 4 mg SL Q4HR PRN #15 tab.rapdis 01/03/19 [Rx] Polyethylene Glycol 3350 [MiraLAX Powder Bulk 17.9 Oz] 1 scoop PO DAILY 30 Days #510 gm 01/03/19 [Rx] metroNIDAZOLE [Flagyl] 500 mg PO TID 4 Days #21 tablet 01/03/19 [Rx] Allergies/Adverse Reactions: Allergy/AdvReac Type Severity Reaction Status Date / Time Penicillins Allergy Hives Verified 12/31/18 09:09 Date of admission: 12/31/18 15:00 Primary care physician: Omid Rainey MD Consults: 12/31/18 17:22 Consult to Nutrition [CONS] Routine Comment: Consulting Provider: NUTRITION Reason for Dietary Consult: MST Score Discharging clinician: Regan Molina (Pam Forman, CUSTOMER SUPPORT CONSULTANT) Anticipated date of discharge: 01/03/19 Labs on day of discharge: Labs from last 24 hours 01/03/19 01/03/19 01/02/19 04:51 04:51 09:17 WBC 6.9 RBC 3.49 L Hgb 11.6 L Hct 35.2 L MCV 100.9 H MCH 33.2 MCHC 33.0 RDW 13.5 Plt Count 114 L MPV 10.7 Sodium 135 L 135 L Potassium 3.1 L 3.4 L Chloride 96 L 97 L Carbon Dioxide 27 29 BUN 8 8 Creatinine 0.78 0.83 Est GFR ( Amer) > 60 > 60 Est GFR (Non-Af Amer) > 60 > 60 BUN/Creatinine Ratio 10 10 Glucose 128 H 120 H Calculated Osmolality 280 280 Calcium 8.4 L 8.4 L Total Bilirubin 0.6 0.4 Direct Bilirubin 0.1 0.1 Indirect Bilirubin 0.5 0.3 AST 23 32 ALT 23 32 Alkaline Phosphatase 51 55 Serum Total Protein 6.5 6.6 Albumin 4.0 4.2 Globulin 2.5 2.4 Albumin/Globulin Ratio 1.6 1.8 01/02/19 09:17 WBC 7.7 RBC 3.57 L Hgb 11.9 L Hct 36.2 L MCV 101.4 H MCH 33.3 MCHC 32.9 RDW 13.7 Plt Count 126 L MPV 10.3 Sodium Potassium Chloride Carbon Dioxide BUN Creatinine Est GFR ( Amer) Est GFR (Non-Af Amer) BUN/Creatinine Ratio Glucose Calculated Osmolality Calcium Total Bilirubin Direct Bilirubin Indirect Bilirubin AST ALT Alkaline Phosphatase Serum Total Protein Albumin Globulin Albumin/Globulin Ratio - Patient Status Disposition: Home, Self-Care Condition: Good Functional capacity at discharge: independent ambulation Overall status at discharge: patient is progressing back to baseline - Discharge Instructions Instructions: Barry-Davila Drain Care (DC), Laparoscopic Cholecystectomy (DC) Follow Up With: Omid Rainey MD [Primary Care Provider] - Syl Forman CNP [Advanced Practice Nurse] - 01/10/19 1:15 pm Additional Instructions: General Surgical Discharge Instructions 1. No pushing, pulling, or lifting greater than 15 lbs for 4 weeks (depending upon procedure). 2. You may remove your dressings and shower beginning today, but no tub baths, soaking, or swimming for 2 weeks. 3. No driving for one weeks unless otherwise specified and then you may resume driving when you are off narcotics and are safe to react in a car. 4. Take 650 mg acetaminophen and apply ice every every hour. If this does not relieve discomfort, you may take the as needed Hydrocodone/acetaminophen. Do not take more than 4000 mg of acetaminophen in 24 hours (4 doses of 650 mg acetaminophen and 4 doses of Bradford is our max amount in 24 hours). Eat a small snack with pain medication as this will help reduce the risk of nausea. Take narcotics as directed. Do not take more narcotics then directed and do not share your narcotics with any other person. Do not drink alcohol while on narcotics. You can take the Zofran/ondansetron if needed for nausea or with a dose of narcotics to prevent nausea. 5. Take stool softeners (Colace) or a water based laxative (Miralax) while taking narcotics. You may hold for loose stools. 6. Report any fevers greater than 100.5F, increase abdominal discomfort, drainage that looks like pus, increased redness or pain at the surgical site, or any vomiting. 7. Report any pain in the calves, shortness of breath, or rapid heartbeat. 8. Follow-up in the office as directed. 9. If you were prescribed antibiotics, do not stop them without talking to your provider. Do not drink alcohol while taking metronidazole. Drinking alcohol while taki ng metronidazole can result in violent abdominal pain and vomiting. Refrain from alcohol use for 48 hours after completing metronidazole. Daily MICHELE Drain Care: 1. Remove dressings. Shower with antibacterial soap. 2. Do not let the MICHELE drain dangle from your body. Use the safety pin to secure to your clothing. Secure the MICHELE to a lanyard or other type of long necklace when you shower. 3. Replace drain gauze and taped to secure. 4. Record the output from your MICHELE bulb (at least once daily) on the form provided and bring this with you to your follow-up appointment. 5. Keep the MICHELE drain to suction (squeeze the bulb and replace the cap while squeezing). 6. Strip the lines twice daily (hold onto the line as close to the body as you can, then with the other hand push the contents of the line into the MICHELE bulb). - Diet and Activity Activity: increase activity as tolerated Diet: advance to your usual diet <Regan Molina - Last Filed: 01/03/19 12:13> Orders not resulted at time of discharge: Pending orders 12/31/18 13:08 Surgical Pathology [PTH] Routine Date of Encounter: 01/03/19 - Discharge Diagnosis (1) Symptomatic cholelithiasis Status: Acute General Surgery Exam Initial Vital Signs Temp Pulse Resp BP Pulse Ox 98.0 F 83 18 145/82 95 12/31/18 09:12 12/31/18 09:12 12/31/18 09:12 12/31/18 09:12 12/31/18 09:12 - Hospital Course Hospital course: Mr. Ruiz is a 63 year old male - Time Spent with Patient Total time spent providing and/or coordinating discharge services: Date of admission: 12/31/18 15:00 Primary care physician: Omid Rainey MD Consults: 12/31/18 17:22 Consult to Nutrition [CONS] Routine Comment: Consulting Provider: NUTRITION Reason for Dietary Consult: MST Score Labs on day of discharge: Labs from last 24 hours 01/03/19 01/03/19 04:51 04:51 WBC 6.9 RBC 3.49 L Hgb 11.6 L Hct 35.2 L MCV 100.9 H MCH 33.2 MCHC 33.0 RDW 13.5 Plt Count 114 L MPV 10.7 Sodium 135 L Potassium 3.1 L Chloride 96 L Carbon Dioxide 27 BUN 8 Creatinine 0.78 Est GFR ( Amer) > 60 Est GFR (Non-Af Amer) > 60 BUN/Creatinine Ratio 10 Glucose 128 H Calculated Osmolality 280 Calcium 8.4 L Total Bilirubin 0.6 Direct Bilirubin 0.1 Indirect Bilirubin 0.5 AST 23 ALT 23 Alkaline Phosphatase 51 Serum Total Protein 6.5 Albumin 4.0 Globulin 2.5 Albumin/Globulin Ratio 1.6 - Attending Attestation patient seen and examined. i have reviewed all labs, imaging, and notes. i have reviewed the case with the THERAPIST SPEECH and senior oracle database administrator. i agree with the above assessment and plan.
[2019-01-03] MEDS: MetroNIDAZOLE 500 MG/100 ML 500 MG/100 ML BAG IVPB SCH (09:13)
[2019-01-03] MEDS: Isosorbide MONOnitrate (24 HR) 30 MG TAB.ER.24H PO SCH (09:14)
[2019-01-03] MEDS: Furosemide 40 MG TABLET PO SCH (09:14)
[2019-01-03] MEDS: Gabapentin 300 MG CAPSULE PO SCH (09:14)
[2019-01-03] MEDS: *HR* SitaGLIPtin 25 MG TABLET PO SCH (09:14)
[2019-01-03 11:00] VITALS: BP 106/66
== END 2019-01-03 14:23 | disposition home or self-care (01) ==
LOC: 3ANU 08:36 → SAMDAY 08:36 → 3ANU 14:40
PROVIDERS: ADMIT Surgery; ATTEND Surgery

== ENCOUNTER 2020-06-07 16:06 | Inpatient (IN) ==
[2020-06-07 16:59] LABS: Mean Corpuscular Volume 105.9 fL (83.0-100.0); Red Cell Distribution Width 14.6 % (11.5-14.5)
[2020-06-07 17:02] LABS: Hematocrit 30.3 % (37.5-50.1); Immature Platelets 6.5 % (1.1-6.1); Mean Platelet Volume 11.2 fL (9.4-12.4); Nucleated Red Blood Cells 0.5 /100 WBC (0); Red Blood Count 2.86 M/mcL (4.19-5.50); White Blood Count 8.1 K/mcL (4.3-11.1)
[2020-06-07 17:20] LABS: Platelet Count 92 K/mcL (140-400)
[2020-06-07 17:23] LABS: Lymphocytes # 1.9 K/mcL (0.6-4.6); Monocytes # 0.5 K/mcL (0.0-1.3); Neutrophils # 5.5 K/mcL (1.6-8.9); Reactive Lymphocytes Present (Not Present); Smudge Cells Present (Not Present)
[2020-06-07 17:24] LABS: BUN/Creatinine Ratio 8 (6-26); Blood Urea Nitrogen 8 mg/dL (8-23); Calcium 8.7 mg/dL (8.6-10.3); Carbon Dioxide 23 mEq/L (23-29); Chloride 100 mEq/L (98-107); Glucose 219 mg/dL (70-105); Osmolality,Calculated 281 (280-300); Potassium 3.6 mEq/L (3.5-5.1); Sodium 133 mEq/L (136-145); eGFR For African Americans > 60 (> 60); eGFR For Non-African Americans > 60 (> 60)
[2020-06-07] MEDS ORDERED: Azithromycin 500 MG in 0.9 % Sodium Chloride 250 ML IVPB ONE (17:49)
[2020-06-07] MEDS ORDERED: cefTRIAXone 1,000 MG in Water for inj. (sterile) 10 ML IVP ONE ×2 (17:49→19:52)
[2020-06-07 19:13] LABS: Amorphous Sediment,Urine Few per hpf (None-Few); Bilirubin,Urine Negative (Negative); Blood,Urine Negative (Negative); Clarity,Urine Clear (Clear); Color,Urine Light-Yellow (Yellow); Glucose,Urine (UA) Normal (Normal); Hyaline Casts,Urine Few per lpf (None Seen); Ketones,Urine Negative (Negative); Leukocyte Esterase,Urine Negative (Negative); Mucus,Urine Few per lpf (None-Few); Nitrite,Urine Negative (Negative); PH,Urine 6.5 pH Units (5.0-8.0); Protein,Urine 30 mg/dL (Neg-Trace); RBC,Urine 0-3 per hpf (0-3); Specific Gravity,Urine 1.014 (1.010-1.025); Squamous Epithelial Cell,Urine Few per hpf (None-Few); Urobilinogen,Urine Normal (Normal); WBC,Urine 0-3 per hpf (0-3)
[2020-06-07] MEDS ORDERED: Ondansetron 4 MG/2 ML VIAL IVP PRN (19:47)
[2020-06-07] MEDS ORDERED: Naloxone 0.4 MG/ML INJ IVP PRN (19:47)
[2020-06-07] MEDS ORDERED: Dextrose Gel 15 GM/37.5 ML TUBE PO PRN ×2 (19:56)
[2020-06-07] MEDS ORDERED: D5% in Water 1,000 ML IVC PRN (19:56)
[2020-06-07] MEDS ORDERED: *HR* Dextrose 50 % in Water (Vial) 50 ML VIAL IVP PRN (19:56)
[2020-06-07] MEDS ORDERED: methylPREDNISolone 125 MG/2 ML VIAL IVP ONE (19:58)
[2020-06-07] MEDS: Ipratropium/Albuterol Neb 3 ML IH SCH ×2 (20:20→23:42)
[2020-06-07] MEDS ORDERED: Insulin DETEMIR 100 UNIT/ML X5UNITS SUBQ SCH (21:00)
[2020-06-07] MEDS ORDERED: Perflutren Lipid Microsphere 1.3 ML in 0.9 % Sodium Chloride 8.7 ML IVP PRN (21:09)
[2020-06-07] MEDS: Insulin LISPRO 300 UNITS/3 ML VIAL SUBQ SCH (21:23)
[2020-06-07] MEDS: Furosemide 40 MG/4 ML VIAL IVP SCH (21:23)
[2020-06-07] MEDS: Aspirin 81 MG TAB.CHEW PO SCH (21:58)
[2020-06-08] MEDS: Ipratropium/Albuterol Neb 3 ML IH SCH ×6 (03:52→23:47)
[2020-06-08 05:17] LABS: Red Cell Distribution Width 14.4 % (11.5-14.5)
[2020-06-08 05:19] LABS: Hematocrit 30.2 % (37.5-50.1); Hemoglobin 9.9 g/dL (12.9-16.9); Immature Platelets 4.5 % (1.1-6.1); Mean Corpuscular HGB Conc 32.8 g/dL (31.6-35.5); Mean Corpuscular Volume 106.7 fL (83.0-100.0); Mean Platelet Volume 11.2 fL (9.4-12.4); Red Blood Count 2.83 M/mcL (4.19-5.50); White Blood Count 6.7 K/mcL (4.3-11.1)
[2020-06-08 05:28] LABS: BUN/Creatinine Ratio 12 (6-26); Blood Urea Nitrogen 12 mg/dL (8-23); Calcium 8.2 mg/dL (8.6-10.3); Carbon Dioxide 23 mEq/L (23-29); Chloride 98 mEq/L (98-107); Glucose 311 mg/dL (70-105); Magnesium 1.8 mg/dL (1.6-2.6); Osmolality,Calculated 284 (280-300); Phosphorous 1.4 mg/dL (2.7-4.5); Sodium 131 mEq/L (136-145); eGFR For African Americans > 60 (> 60); eGFR For Non-African Americans > 60 (> 60)
[2020-06-08] MEDS: *HR* Enoxaparin 40 MG/0.4 ML SYRINGE SQ SCH (05:54)
[2020-06-08] MEDS: Aspirin 81 MG TAB.CHEW PO SCH (07:28)
[2020-06-08] MEDS: predniSONE 20 MG TABLET PO SCH (07:28)
[2020-06-08] MEDS: Furosemide 40 MG/4 ML VIAL IVP SCH ×2 (07:28→20:34)
[2020-06-08] MEDS: Insulin LISPRO 300 UNITS/3 ML VIAL SUBQ SCH ×5 (07:34→21:04)
[2020-06-08] MEDS: Calcium Gluconate 1gm/50mL 1 GM/50 ML BAG IVPB SCH ×2 (10:13→11:07)
[2020-06-08] MEDS ORDERED: Insulin LISPRO 300 UNITS/3 ML VIAL SUBQ ONE (13:32)
[2020-06-08] MEDS ORDERED: Ipratropium/Albuterol Neb 3 ML IH PRN (15:07)
[2020-06-08] MEDS: carvediloL 25 MG TABLET PO SCH (17:05)
[2020-06-08] MEDS: cefTRIAXone 2,000 MG in Water for inj. (sterile) 20 ML IVP SCH (17:05)
[2020-06-08] MEDS: Azithromycin 500 MG in 0.9 % Sodium Chloride 250 ML IVPB SCH (17:06)
[2020-06-08] MEDS: Budesonide/Formoterol 160/4.5 1 PUFF INH IH SCH (20:09)
[2020-06-08] MEDS: Gabapentin 300 MG CAPSULE PO SCH (20:35)
[2020-06-08] MEDS ORDERED: Insulin DETEMIR 100 UNIT/ML X5UNITS SUBQ SCH (21:00)
[2020-06-09 02:53] LABS: Hematocrit 31.1 % (37.5-50.1); Hemoglobin 10.3 g/dL (12.9-16.9); Mean Corpuscular HGB Conc 33.1 g/dL (31.6-35.5); Mean Corpuscular Hemoglobin 35.3 pg (28.0-33.3); Mean Corpuscular Volume 106.5 fL (83.0-100.0); Mean Platelet Volume 11.1 fL (9.4-12.4); Monocytes # 1.2 K/mcL (0.0-1.3); Platelet Count 118 K/mcL (140-400); Red Blood Count 2.92 M/mcL (4.19-5.50); Red Cell Distribution Width 14.3 % (11.5-14.5); White Blood Count 9.6 K/mcL (4.3-11.1)
[2020-06-09 03:13] LABS: Alanine Aminotransferase 30 Units/L (7-52); Albumin 3.9 g/dL (3.5-5.7); Albumin/Globulin Ratio 1.1 (1.1-2.2); Alkaline Phosphatase 56 Units/L (34-104); Aspartate Amino Transferase 37 Units/L (13-39); BUN/Creatinine Ratio 20 (6-26); Bilirubin,Total 0.4 mg/dL (0.3-1.0); Blood Urea Nitrogen 19 mg/dL (8-23); Calcium 8.9 mg/dL (8.6-10.3); Carbon Dioxide 24 mEq/L (23-29); Chloride 99 mEq/L (98-107); Globulin 3.4 g/dL (2.4-3.5); Glucose 232 mg/dL (70-105); Osmolality,Calculated 290 (280-300); Potassium 3.6 mEq/L (3.5-5.1); Sodium 135 mEq/L (136-145); Total Protein 7.3 g/dL (6.4-8.9); eGFR For African Americans > 60 (> 60); eGFR For Non-African Americans > 60 (> 60)
[2020-06-09 03:38] LABS: Large Platelets Present (Not Present); Lymphocytes # 0.8 K/mcL (0.6-4.6); Neutrophils # 7.7 K/mcL (1.6-8.9); Platelet Estimate Slight Decrease (Normal); Polychromasia 1+ (Not Present)
[2020-06-09] MEDS: Ipratropium/Albuterol Neb 3 ML IH SCH ×6 (03:51→23:36)
[2020-06-09] MEDS: *HR* Enoxaparin 40 MG/0.4 ML SYRINGE SQ SCH (05:45)
[2020-06-09 06:18] LABS: Estimated Average Glucose 217 mg/dl; Hemoglobin A1C 9.2 %
[2020-06-09] MEDS: Budesonide/Formoterol 160/4.5 1 PUFF INH IH SCH ×2 (07:23→23:36)
[2020-06-09] MEDS: Insulin LISPRO 300 UNITS/3 ML VIAL SUBQ SCH ×7 (10:07→20:42)
[2020-06-09] MEDS: carvediloL 25 MG TABLET PO SCH ×2 (10:09→17:14)
[2020-06-09] MEDS: Aspirin 81 MG TAB.CHEW PO SCH (10:09)
[2020-06-09] MEDS: Furosemide 40 MG/4 ML VIAL IVP SCH ×2 (10:10→20:42)
[2020-06-09] MEDS: DilTIAZem CD (24hr) 120 MG CAP.ER.24H PO SCH (10:10)
[2020-06-09] MEDS: predniSONE 20 MG TABLET PO SCH (10:11)
[2020-06-09] MEDS: Gabapentin 300 MG CAPSULE PO SCH ×3 (10:11→20:42)
[2020-06-09] MEDS ORDERED: Melatonin 3 MG TABLET PO PRN (14:36)
[2020-06-09] MEDS ORDERED: Menthol 9.1 MG LOZENGE PO PRN (15:14)
[2020-06-09] MEDS: MethylPREDNISolone 40 MG/ML VIAL IVP SCH ×2 (15:53→16:01)
[2020-06-09] MEDS: cefTRIAXone 2,000 MG in Water for inj. (sterile) 20 ML IVP SCH (17:15)
[2020-06-09] MEDS: Azithromycin 500 MG in 0.9 % Sodium Chloride 250 ML IVPB SCH (17:19)
[2020-06-09] MEDS: Insulin DETEMIR 100 UNIT/ML X5UNITS SUBQ SCH (20:43)
[2020-06-10] MEDS: Ipratropium/Albuterol Neb 3 ML IH SCH ×6 (02:59→23:15)
[2020-06-10 04:29] LABS: Hematocrit 30.2 % (37.5-50.1); Hemoglobin 9.9 g/dL (12.9-16.9); Mean Corpuscular HGB Conc 32.8 g/dL (31.6-35.5); Mean Corpuscular Hemoglobin 34.1 pg (28.0-33.3); Mean Corpuscular Volume 104.1 fL (83.0-100.0); Mean Platelet Volume 10.6 fL (9.4-12.4); Nucleated Red Blood Cells 0.2 /100 WBC (0); Platelet Count 133 K/mcL (140-400); Red Cell Distribution Width 14.3 % (11.5-14.5); White Blood Count 8.2 K/mcL (4.3-11.1)
[2020-06-10] MEDS: MethylPREDNISolone 40 MG/ML VIAL IVP SCH ×2 (05:03→16:21)
[2020-06-10] MEDS: *HR* Enoxaparin 40 MG/0.4 ML SYRINGE SQ SCH ×2 (05:03→16:22)
[2020-06-10 05:13] LABS: Lymphocytes # 2.3 K/mcL (0.6-4.6); Monocytes # 0.3 K/mcL (0.0-1.3); Neutrophils # 4.4 K/mcL (1.6-8.9)
[2020-06-10 05:14] LABS: Platelet Estimate Normal (Normal); Polychromasia 1+ (Not Present); Smudge Cells Present (Not Present)
[2020-06-10 06:44] LABS: Alanine Aminotransferase 33 Units/L (7-52); Albumin/Globulin Ratio 1.3 (1.1-2.2); Alkaline Phosphatase 56 Units/L (34-104); Aspartate Amino Transferase 29 Units/L (13-39); BUN/Creatinine Ratio 19 (6-26); Bilirubin,Total 0.5 mg/dL (0.3-1.0); Blood Urea Nitrogen 17 mg/dL (8-23); Calcium 8.7 mg/dL (8.6-10.3); Carbon Dioxide 27 mEq/L (23-29); Chloride 98 mEq/L (98-107); Globulin 3.1 g/dL (2.4-3.5); Glucose 210 mg/dL (70-105); Osmolality,Calculated 288 (280-300); Phosphorous 3.1 mg/dL (2.7-4.5); Potassium 3.4 mEq/L (3.5-5.1); Sodium 135 mEq/L (136-145); Total Protein 7.1 g/dL (6.4-8.9); eGFR For African Americans > 60 (> 60); eGFR For Non-African Americans > 60 (> 60)
[2020-06-10] MEDS ORDERED: Acetaminophen 325 MG TABLET PO PRN (07:28)
[2020-06-10] MEDS: Budesonide/Formoterol 160/4.5 1 PUFF INH IH SCH ×2 (07:30→19:42)
[2020-06-10] MEDS: DilTIAZem CD (24hr) 120 MG CAP.ER.24H PO SCH (08:00)
[2020-06-10] MEDS: carvediloL 25 MG TABLET PO SCH ×2 (08:00→16:21)
[2020-06-10] MEDS: Gabapentin 300 MG CAPSULE PO SCH ×3 (08:00→20:27)
[2020-06-10] MEDS: Aspirin 81 MG TAB.CHEW PO SCH (08:01)
[2020-06-10] MEDS: Multivit/Ca/Min/Fe/FA 1 TAB TABLET PO SCH (08:01)
[2020-06-10] MEDS: Furosemide 40 MG/4 ML VIAL IVP SCH (08:02)
[2020-06-10] MEDS: Insulin DETEMIR 100 UNIT/ML X5UNITS SUBQ SCH ×2 (08:02→20:28)
[2020-06-10] MEDS: Insulin LISPRO 300 UNITS/3 ML VIAL SUBQ SCH ×7 (08:03→20:28)
[2020-06-10] MEDS: cefTRIAXone 2,000 MG in Water for inj. (sterile) 20 ML IVP SCH (18:18)
[2020-06-10] MEDS: Azithromycin 500 MG in 0.9 % Sodium Chloride 250 ML IVPB SCH (18:18)
[2020-06-11] MEDS: Ipratropium/Albuterol Neb 3 ML IH SCH ×3 (03:20→11:14)
[2020-06-11 04:42] LABS: Hematocrit 33.9 % (37.5-50.1); Hemoglobin 11.1 g/dL (12.9-16.9); Mean Corpuscular HGB Conc 32.7 g/dL (31.6-35.5); Mean Corpuscular Hemoglobin 34.5 pg (28.0-33.3); Mean Corpuscular Volume 105.3 fL (83.0-100.0); Mean Platelet Volume 10.6 fL (9.4-12.4); Nucleated Red Blood Cells 0.3 /100 WBC (0); Platelet Count 150 K/mcL (140-400); Red Blood Count 3.22 M/mcL (4.19-5.50); Red Cell Distribution Width 14.2 % (11.5-14.5); White Blood Count 11.5 K/mcL (4.3-11.1)
[2020-06-11 05:02] LABS: Alanine Aminotransferase 49 Units/L (7-52); Albumin 4.2 g/dL (3.5-5.7); Albumin/Globulin Ratio 1.3 (1.1-2.2); Alkaline Phosphatase 51 Units/L (34-104); Aspartate Amino Transferase 31 Units/L (13-39); BUN/Creatinine Ratio 21 (6-26); Bilirubin,Total 0.4 mg/dL (0.3-1.0); Blood Urea Nitrogen 19 mg/dL (8-23); Calcium 9.3 mg/dL (8.6-10.3); Carbon Dioxide 27 mEq/L (23-29); Chloride 100 mEq/L (98-107); Globulin 3.3 g/dL (2.4-3.5); Glucose 199 mg/dL (70-105); Magnesium 2.3 mg/dL (1.6-2.6); Osmolality,Calculated 292 (280-300); Potassium 3.9 mEq/L (3.5-5.1); Sodium 137 mEq/L (136-145); Total Protein 7.5 g/dL (6.4-8.9); eGFR For African Americans > 60 (> 60); eGFR For Non-African Americans > 60 (> 60)
[2020-06-11 05:04] LABS: % Iron Saturation 28 % (20-55); Iron 91 mcg/dL (65-175); Transferrin 230 mg/dL (203-362)
[2020-06-11 05:10] LABS: Platelet Estimate Normal (Normal)
[2020-06-11 05:12] LABS: Anisocytosis 1+ (Not Present); Lymphocytes # 1.8 K/mcL (0.6-4.6); Monocytes # 1.2 K/mcL (0.0-1.3); Neutrophils # 7.6 K/mcL (1.6-8.9)
[2020-06-11 05:20] LABS: Ferritin 251 ng/mL (20-250)
[2020-06-11] MEDS: MethylPREDNISolone 40 MG/ML VIAL IVP SCH (05:25)
[2020-06-11] MEDS: *HR* Enoxaparin 40 MG/0.4 ML SYRINGE SQ SCH (05:25)
[2020-06-11] MEDS: Budesonide/Formoterol 160/4.5 1 PUFF INH IH SCH (07:14)
[2020-06-11] MEDS: Aspirin 81 MG TAB.CHEW PO SCH (07:54)
[2020-06-11] MEDS: Multivit/Ca/Min/Fe/FA 1 TAB TABLET PO SCH (07:54)
[2020-06-11] MEDS: Gabapentin 300 MG CAPSULE PO SCH (07:55)
[2020-06-11] MEDS: Insulin LISPRO 300 UNITS/3 ML VIAL SUBQ SCH ×4 (07:56→12:13)
[2020-06-11] MEDS: DilTIAZem CD (24hr) 120 MG CAP.ER.24H PO SCH (07:56)
[2020-06-11] MEDS: carvediloL 25 MG TABLET PO SCH (07:56)
[2020-06-11] MEDS: Insulin DETEMIR 100 UNIT/ML X5UNITS SUBQ SCH (07:57)
[2020-06-11] MEDS ORDERED: DilTIAZem CD (24hr) 120 MG CAP.ER.24H PO ONE (08:27)
[2020-06-11] MEDS ORDERED: DilTIAZem CD (24hr) 240 MG CAP.ER.24H PO SCH (09:00)
[2020-06-11 11:28] VITALS: BP 141/75
[2020-06-12] MEDS ORDERED: DilTIAZem CD (24hr) 240 MG CAP.ER.24H PO SCH (09:00)
[2020-06-12 10:40] LABS: Phosphorous 2.9 mg/dL (2.7-4.5)
== END 2020-06-11 14:43 | disposition home health service (06) | DRG 291 ==
LOC: EMEROOARM 16:06 → 2ANU 16:06 → SUATTDRO 19:49 → 2ANU 20:34
PROVIDERS: ADMIT Internal Medicine; ATTEND Internal Medicine

== ENCOUNTER 2020-07-06 11:02 | Observation (INO) ==
[2020-07-06] MEDS ORDERED: Furosemide 40 MG/4 ML VIAL IVP ONE (11:49)
[2020-07-06 12:19] LABS: Basophils % 0.4 %; Eosinophils % 0.2 %; Hematocrit 29.3 % (37.5-50.1); Hemoglobin 9.8 g/dL (12.9-16.9); Immature Granulocytes % 4.7 % (0-4); Immature Platelets 2.9 % (1.1-6.1); Mean Corpuscular HGB Conc 33.4 g/dL (31.6-35.5); Mean Corpuscular Volume 107.7 fL (83.0-100.0); Mean Platelet Volume 10.6 fL (9.4-12.4); Monocytes # 1.8 K/mcL (0.0-1.3); Monocytes % 37.8 %; Red Blood Count 2.72 M/mcL (4.19-5.50); Segmented Neutrophils % 35.9 %; White Blood Count 4.7 K/mcL (4.3-11.1)
[2020-07-06 12:39] LABS: BUN/Creatinine Ratio 8 (6-26); Blood Urea Nitrogen 8 mg/dL (8-23); Calcium 8.8 mg/dL (8.6-10.3); Carbon Dioxide 26 mEq/L (23-29); Chloride 99 mEq/L (98-107); Glucose 119 mg/dL (70-105); Osmolality,Calculated 279 (280-300); Potassium 3.5 mEq/L (3.5-5.1); Sodium 135 mEq/L (136-145); Troponin I < 0.03 ng/mL (< 0.04); eGFR For African Americans > 60 (> 60); eGFR For Non-African Americans > 60 (> 60)
[2020-07-06 12:41] LABS: Anisocytosis 1+ (Not Present)
[2020-07-06 12:42] LABS: Platelet Estimate Decreased (Normal)
[2020-07-06 12:43] LABS: Neutrophils # 1.8 K/mcL (1.6-8.9); Platelet Count 78 K/mcL (140-400)
[2020-07-06] MEDS ORDERED: Aspirin 325 MG TABLET PO ONE (13:29)
[2020-07-06 13:33] LABS: Adenovirus Not Detected (Not Detect); Bordetella Pertussis Not Detected (Not Detect); Chlamydophila pneumoniae Not Detected (Not Detect); Coronavirus 229E Not Detected (Not Detect); Coronavirus HKU1 Not Detected (Not Detect); Coronavirus NL63 Not Detected (Not Detect); Coronavirus OC43 Not Detected (Not Detect); Human Metapneumovirus Not Detected (Not Detect); Human Rhinovirus/Enterovirus Not Detected (Not Detect); Influenza A Subtype 2009 H1 Not Detected (Not Detect); Influenza B Not Detected (Not Detect); Mycoplasma pneumoniae Not Detected (Not Detect); Parainfluenza Virus 1 Not Detected (Not Detect); Parainfluenza Virus 2 Not Detected (Not Detect); Parainfluenza Virus 3 Not Detected (Not Detect); Parainfluenza Virus 4 Not Detected (Not Detect); Respiratory Syncytial Virus Not Detected (Not Detect); SARS-CoV-2 Not Detected (Not Detect)
[2020-07-06] MEDS ORDERED: Ondansetron 4 MG/2 ML VIAL IVP PRN (15:15)
[2020-07-06] MEDS ORDERED: Naloxone 0.4 MG/ML INJ IVP PRN (15:15)
[2020-07-06] MEDS ORDERED: Acetaminophen 325 MG TABLET PO PRN (15:15)
[2020-07-06] MEDS ORDERED: Nitroglycerin 0.4 MG TAB.SUBL SL PRN (16:54)
[2020-07-06] MEDS ORDERED: Ipratropium/Albuterol Neb 3 ML IH PRN (16:54)
[2020-07-06] MEDS ORDERED: *HR* Dextrose 50 % in Water (Vial) 50 ML VIAL IVP PRN (16:58)
[2020-07-06] MEDS ORDERED: Dextrose Gel 15 GM/37.5 ML TUBE PO PRN ×2 (16:58)
[2020-07-06] MEDS ORDERED: D5% in Water 1,000 ML IVC PRN (16:58)
[2020-07-06] MEDS: carvediloL 25 MG TABLET PO SCH (17:46)
[2020-07-06] MEDS: Pantoprazole 40 MG VIAL IVP SCH (17:46)
[2020-07-06] MEDS: Budesonide/Formoterol 160/4.5 1 PUFF INH IH SCH ×2 (19:38→22:10)
[2020-07-06] MEDS: Insulin LISPRO 300 UNITS/3 ML VIAL SUBQ SCH (20:51)
[2020-07-07] MEDS ORDERED: Morphine Sulfate 2 MG/ML SYRINGE IVP PRN (01:33)
[2020-07-07] MEDS: Pantoprazole 40 MG VIAL IVP SCH ×2 (05:33→17:21)
[2020-07-07 05:54] LABS: INR 1.2; Prothrombin Time 13.7 Seconds (9.4-12.1)
[2020-07-07 05:55] LABS: Basophils % 0.2 %; Hemoglobin 9.7 g/dL (12.9-16.9)
[2020-07-07 05:57] LABS: Eosinophils % 0.6 %; Hematocrit 28.9 % (37.5-50.1); Immature Granulocytes % 3.8 % (0-4); Immature Platelets 3.4 % (1.1-6.1); Lymphocytes # 0.9 K/mcL (0.6-4.6); Lymphocytes % 17.9 %; Mean Corpuscular HGB Conc 33.6 g/dL (31.6-35.5); Mean Corpuscular Hemoglobin 36.1 pg (28.0-33.3); Mean Corpuscular Volume 107.4 fL (83.0-100.0); Mean Platelet Volume 10.5 fL (9.4-12.4); Monocytes # 1.9 K/mcL (0.0-1.3); Neutrophils # 1.8 K/mcL (1.6-8.9); Platelet Count 81 K/mcL (140-400); Red Blood Count 2.69 M/mcL (4.19-5.50); Red Cell Distribution Width 13.9 % (11.5-14.5); Segmented Neutrophils % 37.5 %; White Blood Count 4.8 K/mcL (4.3-11.1)
[2020-07-07 06:02] LABS: Estimated Average Glucose 229 mg/dl; Hemoglobin A1C 9.6 %
[2020-07-07 06:23] LABS: Folate 6.9 ng/mL (3.0-16.0)
[2020-07-07 06:25] LABS: % Iron Saturation 10 % (20-55); Alanine Aminotransferase 17 Units/L (7-52); Albumin 3.8 g/dL (3.5-5.7); Albumin/Globulin Ratio 1.3 (1.1-2.2); Alkaline Phosphatase 48 Units/L (34-104); Aspartate Amino Transferase 12 Units/L (13-39); BUN/Creatinine Ratio 11 (6-26); Bilirubin,Direct 0.1 mg/dL (0.0-0.2); Bilirubin,Indirect 0.5 mg/dL (0.0-1.0); Bilirubin,Total 0.6 mg/dL (0.3-1.0); Blood Urea Nitrogen 10 mg/dL (8-23); Calcium 8.4 mg/dL (8.6-10.3); Carbon Dioxide 26 mEq/L (23-29); Chloride 98 mEq/L (98-107); Cholesterol 111 mg/dL (< 200); Ferritin 102 ng/mL (20-250); Globulin 2.9 g/dL (2.4-3.5); Glucose 116 mg/dL (70-105); HDL Cholesterol 37 mg/dL (40-59); Iron 31 mcg/dL (65-175); LDL Cholesterol,Calculated 47 mg/dL (< 100); Magnesium 1.3 mg/dL (1.6-2.6); Osmolality,Calculated 282 (280-300); Phosphorous 3.2 mg/dL (2.7-4.5); Potassium 3.3 mEq/L (3.5-5.1); Sodium 136 mEq/L (136-145); Total Protein 6.7 g/dL (6.4-8.9); Transferrin 212 mg/dL (203-362); Triglycerides 137 mg/dL (< 150); eGFR For African Americans > 60 (> 60); eGFR For Non-African Americans > 60 (> 60)
[2020-07-07] MEDS: Insulin LISPRO 300 UNITS/3 ML VIAL SUBQ SCH ×4 (07:43→20:11)
[2020-07-07] MEDS ORDERED: Isovue-370 500 ML BOTTLE IVP ONE (09:32)
[2020-07-07] MEDS: carvediloL 25 MG TABLET PO SCH ×2 (09:33→17:21)
[2020-07-07] MEDS: Furosemide 40 MG/4 ML VIAL IVP SCH (09:34)
[2020-07-07] MEDS: Budesonide/Formoterol 160/4.5 1 PUFF INH IH SCH ×2 (10:14→19:39)
[2020-07-07] MEDS ORDERED: Iron Sucrose Complex 200 MG in 0.9 % Sodium Chloride 100 ML IVPB ONE (11:07)
[2020-07-07] MEDS: Ipratropium/Albuterol Neb 3 ML IH SCH ×5 (11:17→23:37)
[2020-07-07] MEDS: Gabapentin 300 MG CAPSULE PO SCH ×2 (15:33→20:11)
[2020-07-08 03:09] LABS: Basophils % 0.4 %; Eosinophils % 0.4 %; Hemoglobin 9.9 g/dL (12.9-16.9)
[2020-07-08 03:11] LABS: Hematocrit 29.6 % (37.5-50.1); Immature Granulocytes % 3.7 % (0-4); Immature Platelets 4.2 % (1.1-6.1); Lymphocytes # 0.8 K/mcL (0.6-4.6); Lymphocytes % 16.6 %; Mean Corpuscular HGB Conc 33.4 g/dL (31.6-35.5); Mean Corpuscular Hemoglobin 35.5 pg (28.0-33.3); Mean Corpuscular Volume 106.1 fL (83.0-100.0); Mean Platelet Volume 10.7 fL (9.4-12.4); Monocytes # 1.8 K/mcL (0.0-1.3); Monocytes % 37.2 %; Red Blood Count 2.79 M/mcL (4.19-5.50); Red Cell Distribution Width 13.9 % (11.5-14.5); Segmented Neutrophils % 41.7 %; White Blood Count 4.9 K/mcL (4.3-11.1)
[2020-07-08 03:13] LABS: Platelet Count 89 K/mcL (140-400)
[2020-07-08 03:25] LABS: BUN/Creatinine Ratio 10 (6-26); Blood Urea Nitrogen 9 mg/dL (8-23); Calcium 8.6 mg/dL (8.6-10.3); Carbon Dioxide 28 mEq/L (23-29); Chloride 96 mEq/L (98-107); Glucose 150 mg/dL (70-105); Osmolality,Calculated 280 (280-300); Potassium 3.6 mEq/L (3.5-5.1); Sodium 134 mEq/L (136-145); eGFR For African Americans > 60 (> 60); eGFR For Non-African Americans > 60 (> 60)
[2020-07-08 03:28] LABS: Platelet Estimate Decreased (Normal)
[2020-07-08] MEDS: Ipratropium/Albuterol Neb 3 ML IH SCH ×6 (03:35→23:46)
[2020-07-08] MEDS: Pantoprazole 40 MG VIAL IVP SCH ×2 (05:34→17:56)
[2020-07-08] MEDS: Budesonide/Formoterol 160/4.5 1 PUFF INH IH SCH ×2 (07:53→20:23)
[2020-07-08] MEDS: Gabapentin 300 MG CAPSULE PO SCH ×3 (08:41→20:26)
[2020-07-08] MEDS: Furosemide 40 MG/4 ML VIAL IVP SCH (08:41)
[2020-07-08] MEDS: carvediloL 25 MG TABLET PO SCH ×2 (08:41→17:56)
[2020-07-08] MEDS: Insulin LISPRO 300 UNITS/3 ML VIAL SUBQ SCH ×4 (08:42→20:27)
[2020-07-08] MEDS: DilTIAZem CD (24hr) 240 MG CAP.ER.24H PO SCH (08:45)
[2020-07-08] MEDS: Magnesium Oxide 400 MG TABLET PO SCH (11:13)
[2020-07-08] MEDS ORDERED: Furosemide 20 MG TABLET PO SCH (21:00)
[2020-07-09 01:03] LABS: Mean Corpuscular HGB Conc 33.2 g/dL (31.6-35.5); Mean Platelet Volume 10.4 fL (9.4-12.4)
[2020-07-09 01:05] LABS: Basophils % 0.2 %; Eosinophils % 0.5 %; Hemoglobin 9.3 g/dL (12.9-16.9); Immature Granulocytes % 3.7 % (0-4); Immature Platelets 2.8 % (1.1-6.1); Lymphocytes % 18.2 %; Mean Corpuscular Hemoglobin 35.8 pg (28.0-33.3); Mean Corpuscular Volume 107.7 fL (83.0-100.0); Monocytes # 1.5 K/mcL (0.0-1.3); Monocytes % 37.3 %; Neutrophils # 1.6 K/mcL (1.6-8.9); Red Cell Distribution Width 13.8 % (11.5-14.5); Segmented Neutrophils % 40.1 %; White Blood Count 4.1 K/mcL (4.3-11.1)
[2020-07-09 01:07] LABS: Lymphocytes # 0.8 K/mcL (0.6-4.6); Platelet Count 92 K/mcL (140-400)
[2020-07-09 01:23] LABS: BUN/Creatinine Ratio 11 (6-26); Blood Urea Nitrogen 10 mg/dL (8-23); Calcium 8.3 mg/dL (8.6-10.3); Carbon Dioxide 27 mEq/L (23-29); Chloride 97 mEq/L (98-107); Glucose 171 mg/dL (70-105); Osmolality,Calculated 281 (280-300); Potassium 3.5 mEq/L (3.5-5.1); Sodium 134 mEq/L (136-145); eGFR For African Americans > 60 (> 60); eGFR For Non-African Americans > 60 (> 60)
[2020-07-09] MEDS: Ipratropium/Albuterol Neb 3 ML IH SCH ×4 (03:36→15:18)
[2020-07-09] MEDS: Pantoprazole 40 MG VIAL IVP SCH (05:31)
[2020-07-09] MEDS: Budesonide/Formoterol 160/4.5 1 PUFF INH IH SCH (07:54)
[2020-07-09] MEDS: DilTIAZem CD (24hr) 240 MG CAP.ER.24H PO SCH (08:01)
[2020-07-09] MEDS: Gabapentin 300 MG CAPSULE PO SCH (08:01)
[2020-07-09] MEDS: carvediloL 25 MG TABLET PO SCH (08:02)
[2020-07-09] MEDS: Magnesium Oxide 400 MG TABLET PO SCH (08:02)
[2020-07-09] MEDS: Insulin LISPRO 300 UNITS/3 ML VIAL SUBQ SCH ×2 (08:02→11:10)
[2020-07-09] MEDS ORDERED: Furosemide 40 MG TABLET PO SCH (09:00)
[2020-07-09] MEDS ORDERED: *HR* Propofol 200 MG/20 ML VIAL IVP ONE ×2 (11:51→11:52)
[2020-07-09] MEDS ORDERED: Lidocaine -MPF 2% 2 ML VIAL ONE (11:52)
[2020-07-09 15:11] VITALS: BP 114/71
== END 2020-07-09 16:33 | disposition home health service (06) ==
LOC: EMEROOARM 11:02 → 2ANU 11:02 → SUATTDRO 14:27 → 2ANU 15:26
PROVIDERS: ADMIT Internal Medicine; ATTEND Internal Medicine

== ENCOUNTER 2022-03-06 05:24 | Observation (INO) ==
[2022-03-06 08:13] LABS: Basophils % 0.5 %; Eosinophils % 0.2 %; Hematocrit 34.5 % (37.5-50.1); Hemoglobin 11.2 g/dL (12.9-16.9); Immature Granulocytes % 6.2 % (0-4); Lymphocytes # 1.4 K/mcL (0.6-4.6); Lymphocytes % 22.9 %; Mean Corpuscular HGB Conc 32.5 g/dL (31.6-35.5); Mean Corpuscular Hemoglobin 35.3 pg (28.0-33.3); Mean Corpuscular Volume 108.8 fL (83.0-100.0); Mean Platelet Volume 11.2 fL (9.4-12.4); Monocytes # 1.8 K/mcL (0.0-1.3); Monocytes % 30.1 %; Neutrophils # 2.4 K/mcL (1.6-8.9); Red Blood Count 3.17 M/mcL (4.19-5.50); Red Cell Distribution Width 13.9 % (11.5-14.5); Segmented Neutrophils % 40.1 %
[2022-03-06 08:15] LABS: Platelet Count 75 K/mcL (140-400)
[2022-03-06] MEDS ORDERED: Morphine Sulfate 2 MG/ML SYRINGE IVP ONE (08:28)
[2022-03-06 08:35] LABS: INR 1.2; Prothrombin Time 13.3 Seconds (9.4-12.1)
[2022-03-06 08:41] LABS: Anisocytosis 1+ (Not Present); BUN/Creatinine Ratio 9 (6-26); Blood Urea Nitrogen 11 mg/dL (8-23); Calcium 9.1 mg/dL (8.6-10.3); Carbon Dioxide 26 mEq/L (23-29); Chloride 101 mEq/L (98-107); Glucose 131 mg/dL (70-105); Osmolality,Calculated 281 (280-300); Platelet Estimate Decreased (Normal); Potassium 4.2 mEq/L (3.5-5.1); Sodium 135 mEq/L (136-145); Troponin I < 0.03 ng/mL (< 0.04)
[2022-03-06] MEDS ORDERED: Iopamidol - 370 500 ML MLS IVP ONE (09:32)
[2022-03-06] MEDS ORDERED: Nitroglycerin 0.4 MG TAB.SUBL SL PRN (10:53)
[2022-03-06] MEDS ORDERED: Naloxone 0.4 MG/ML INJ IVP PRN (10:53)
[2022-03-06] MEDS ORDERED: Ipratropium/Albuterol Neb 3 ML IH PRN (10:56)
[2022-03-06] MEDS ORDERED: *HR* Dextrose 50 % in Water (Syg) 50 ML SYRINGE IVP PRN (10:57)
[2022-03-06] MEDS ORDERED: D5% in Water 1,000 ML IVC PRN (10:57)
[2022-03-06] MEDS ORDERED: Dextrose Gel 15 GM/37.5 ML TUBE PO PRN ×2 (10:57)
[2022-03-06] MEDS: Morphine Sulfate 2 MG/ML SYRINGE IVP PRN ×2 (14:29→21:06)
[2022-03-06] MEDS: Insulin LISPRO 300 UNITS/3 ML VIAL SUBQ SCH ×3 (14:51→21:08)
[2022-03-07 01:54] LABS: Hemoglobin 10.7 g/dL (12.9-16.9)
[2022-03-07 01:56] LABS: Immature Platelets 8.4 % (1.1-6.1); Mean Corpuscular HGB Conc 32.4 g/dL (31.6-35.5); Mean Corpuscular Hemoglobin 35.5 pg (28.0-33.3); Mean Corpuscular Volume 109.6 fL (83.0-100.0); Mean Platelet Volume 11.3 fL (9.4-12.4); Red Blood Count 3.01 M/mcL (4.19-5.50); White Blood Count 3.9 K/mcL (4.3-11.1)
[2022-03-07 02:03] LABS: Platelet Count 70 K/mcL (140-400)
[2022-03-07 02:12] LABS: Albumin 4.2 g/dL (3.5-5.7); Albumin/Globulin Ratio 1.4 (1.1-2.2); Bilirubin,Total 0.4 mg/dL (0.3-1.0); Calcium 9.6 mg/dL (8.6-10.3); Globulin 3.1 g/dL (2.4-3.5); Magnesium 1.8 mg/dL (1.6-2.6); Total Protein 7.3 g/dL (6.4-8.9)
[2022-03-07 02:30] LABS: Estimated Average Glucose 169 mg/dl; Hemoglobin A1C 7.5 %
[2022-03-07 02:32] LABS: Hypochromasia Present (Not Present); Lymphocytes # 1.2 K/mcL (0.6-4.6); Monocytes # 0.7 K/mcL (0.0-1.3); Neutrophils # 1.8 K/mcL (1.6-8.9); Platelet Estimate Decreased (Normal)
[2022-03-07 02:42] LABS: % Iron Saturation 28 % (20-55); Iron 98 mcg/dL (65-175); Transferrin 250 mg/dL (203-362)
[2022-03-07 02:56] LABS: Ferritin 99 ng/mL (20-250)
[2022-03-07 03:01] LABS: Folate 9.4 ng/mL (3.0-16.0)
[2022-03-07] MEDS ORDERED: Regadenoson 0.4 MG/5 ML SYRINGE IVP ONE (06:13)
[2022-03-07] MEDS: Insulin LISPRO 300 UNITS/3 ML VIAL SUBQ SCH ×4 (07:57→21:53)
[2022-03-07] MEDS ORDERED: Aspirin 325 MG TABLET PO SCH (09:00)
[2022-03-07] MEDS: Ranolazine 500 MG TAB.ER.12H PO SCH ×2 (12:26→21:52)
[2022-03-07] MEDS: Cyanocobalamin (B-12) 1,000 MCG TABLET PO SCH (12:26)
[2022-03-07] MEDS: Furosemide 40 MG TABLET PO SCH (12:26)
[2022-03-07] MEDS: carvediloL 25 MG TABLET PO SCH ×2 (12:26→21:52)
[2022-03-07] MEDS: Morphine Sulfate 2 MG/ML SYRINGE IVP PRN (14:07)
[2022-03-07] MEDS: Aspirin Enteric Coated 81 MG Tablet PO SCH (14:57)
[2022-03-07] MEDS ORDERED: Heparin 1,000 UNITS/500 mL 500 ML ONE (15:01)
[2022-03-07] MEDS ORDERED: Iopamidol - 370 200 ML INFUS..BTL ONE (15:01)
[2022-03-07] MEDS ORDERED: *HR* FentaNYL (PF) 100 MCG/2 ML VIAL ONE (15:01)
[2022-03-07] MEDS ORDERED: 0.9 % Sodium Chloride 2,000 ML ONE (15:01)
[2022-03-07] MEDS ORDERED: *HR* Heparin 10,000 UNIT/10 ML VIAL ONE (15:01)
[2022-03-07] MEDS ORDERED: Nitroglycerin 1,000 MCG/5 ML VIAL IV ONE (15:01)
[2022-03-07] MEDS ORDERED: *HR* Midazolam HCl 2 MG/2 ML VIAL ONE (15:01)
[2022-03-07] MEDS: *HR* Heparin 5,000 UNIT/ML VIAL SQ SCH (18:04)
[2022-03-07] MEDS: Famotidine 20 MG TABLET PO SCH (18:17)
[2022-03-08] MEDS: *HR* Heparin 5,000 UNIT/ML VIAL SQ SCH ×2 (06:04→16:48)
[2022-03-08 08:14] LABS: Eosinophils % 0.2 %; Hemoglobin 10.7 g/dL (12.9-16.9); Mean Platelet Volume 11.8 fL (9.4-12.4)
[2022-03-08 08:16] LABS: Basophils % 0.4 %; Hematocrit 32.6 % (37.5-50.1); Immature Granulocytes % 4.4 % (0-4); Immature Platelets 6.4 % (1.1-6.1); Lymphocytes # 0.8 K/mcL (0.6-4.6); Lymphocytes % 17.8 %; Mean Corpuscular HGB Conc 32.8 g/dL (31.6-35.5); Mean Corpuscular Hemoglobin 35.4 pg (28.0-33.3); Mean Corpuscular Volume 107.9 fL (83.0-100.0); Monocytes # 1.6 K/mcL (0.0-1.3); Monocytes % 34.9 %; Red Blood Count 3.02 M/mcL (4.19-5.50); Red Cell Distribution Width 13.8 % (11.5-14.5); Segmented Neutrophils % 42.3 %; White Blood Count 4.6 K/mcL (4.3-11.1)
[2022-03-08 08:17] LABS: Platelet Count 64 K/mcL (140-400)
[2022-03-08] MEDS: Insulin LISPRO 300 UNITS/3 ML VIAL SUBQ SCH ×4 (08:31→19:49)
[2022-03-08] MEDS: carvediloL 25 MG TABLET PO SCH ×2 (08:35→19:50)
[2022-03-08] MEDS: Furosemide 40 MG TABLET PO SCH (08:35)
[2022-03-08] MEDS: Isosorbide MONOnitrate (24 HR) 30 MG TAB.ER.24H PO SCH (08:35)
[2022-03-08] MEDS: Ranolazine 500 MG TAB.ER.12H PO SCH ×2 (08:35→19:49)
[2022-03-08] MEDS: Cyanocobalamin (B-12) 1,000 MCG TABLET PO SCH (08:35)
[2022-03-08] MEDS: Aspirin Enteric Coated 81 MG Tablet PO SCH (08:35)
[2022-03-08 08:50] LABS: Calcium 9.2 mg/dL (8.6-10.3); Magnesium 1.9 mg/dL (1.6-2.6); Phosphorous 2.5 mg/dL (2.7-4.5); Potassium 4.2 mEq/L (3.5-5.1)
[2022-03-08] MEDS ORDERED: Ketorolac 30 MG/ML VIAL IVP ONE (10:01)
[2022-03-08] MEDS: Famotidine 20 MG TABLET PO SCH (17:58)
[2022-03-08] MEDS ORDERED: Ketorolac 30 MG/ML VIAL IVP PRN (18:05)
[2022-03-08 22:52] VITALS: O2SAT 97
[2022-03-09 01:37] LABS: Hemoglobin 9.7 g/dL (12.9-16.9); Immature Platelets 7.3 % (1.1-6.1); Mean Corpuscular HGB Conc 32.3 g/dL (31.6-35.5); Mean Corpuscular Volume 108.3 fL (83.0-100.0); Mean Platelet Volume 11.5 fL (9.4-12.4); Red Blood Count 2.77 M/mcL (4.19-5.50); Red Cell Distribution Width 13.6 % (11.5-14.5); White Blood Count 4.3 K/mcL (4.3-11.1)
[2022-03-09 01:57] LABS: Albumin/Globulin Ratio 1.4 (1.1-2.2); Bilirubin,Total 0.5 mg/dL (0.3-1.0); Calcium 9.2 mg/dL (8.6-10.3); Globulin 2.9 g/dL (2.4-3.5); Magnesium 1.7 mg/dL (1.6-2.6); Potassium 4.1 mEq/L (3.5-5.1); Total Protein 6.9 g/dL (6.4-8.9)
[2022-03-09] MEDS: *HR* Heparin 5,000 UNIT/ML VIAL SQ SCH (05:45)
[2022-03-09 06:40] VITALS: BP 150/82; PULSE 77; TEMP 98.1
[2022-03-09] MEDS: Aspirin Enteric Coated 81 MG Tablet PO SCH (08:08)
[2022-03-09] MEDS: Isosorbide MONOnitrate (24 HR) 30 MG TAB.ER.24H PO SCH (08:08)
[2022-03-09] MEDS: carvediloL 25 MG TABLET PO SCH (08:08)
[2022-03-09] MEDS: Furosemide 40 MG TABLET PO SCH (08:08)
[2022-03-09] MEDS: Cyanocobalamin (B-12) 1,000 MCG TABLET PO SCH (08:08)
[2022-03-09] MEDS: Insulin LISPRO 300 UNITS/3 ML VIAL SUBQ SCH (08:09)
[2022-03-09] MEDS: Ranolazine 500 MG TAB.ER.12H PO SCH (08:09)
[2022-03-09] MEDS ORDERED: Pfizer COVID-19 VAC,BIVALENT,MRNA 30 MCG/0.3 ML VIAL IM ONE (09:00)
== END 2022-03-09 11:00 | disposition home or self-care (01) ==
LOC: EMEROOARM 05:24 → 3BNU 05:24 → SUATTDRO 11:12 → 3BNU 12:23
PROVIDERS: ADMIT Internal Medicine; ATTEND Internal Medicine